=== PATIENT | male | born 1945 | race African-American/Black ===

== ENCOUNTER 2016-03-28 09:57 | Inpatient (IN) | payer MEDICARE, MEDICAID ==
[~2016-03-28] VITALS: Ht 200.7 cm; Wt 100.7 kg
--- NOTE | 2016-03-28 10:50 | PHYS DOC ---
Past Medical History Past Medical History: No Pertinent History Past Surgical History: No Surgical History Alcohol Use: Rarely Drug Use: Marijuana Social History Narrative: last use 10 days ago Adult General Chief Complaint Chief Complaint: WEAKNESS/GENERALIZED HPI HPI Patient is a 70 year old male who presents with right-sided weakness per the patient states his symptoms started 5 days ago. Patient stated that he had gotten into an argument with his landlord prior to symptom onset. Patient states that over the past 5 days he has had difficulty lifting up his right arm and has had mild weakness in his right lower extremity. Patient denies any history of known health problems. Patient states that he does smoke cigarettes. Patient was also noted he has been short of breath. Patient denies any chest pain or abdominal pain. Patient denies any difficulty with speech or swallowing. Review of Systems Review of Systems Constitutional: Denies fever or chills [] Eyes: Denies change in visual acuity, redness, or eye pain [] HENT: Denies nasal congestion or sore throat [] Respiratory: Shortness of breath [] Cardiovascular: Denies chest pain or edema [] GI: Denies abdominal pain, nausea, vomiting, bloody stools or diarrhea [] : Denies dysuria or hematuria [] Musculoskeletal: Denies back pain or joint pain [] Integument: Denies rash or skin lesions [] Neurologic: Right-sided weakness [] Current Medications Current Medications Current Medications Medications (Trade) Dose Ordered Sig/Annalise Start Time Stop Time Status Last Admin Dose Admin Albuterol/ Ipratropium (Duoneb) 3 ml 1X ONCE 03/28/16 11:00 03/28/16 11:01 DC 03/28/16 10:57 3 ML Sodium Chloride (Iv Sodium Chloride 0.9% 1000ml Bag) 1,000 ml @ 100 mls/hr Q10H 03/28/16 11:00 03/28/16 20:59 03/28/16 11:11 100 MLS/HR Allergies Allergies Allergies Coded Allergies Type Severity Reaction Last Updated Verified No Known Drug Allergies 03/28/16 No Physical Exam Physical Exam Constitutional: Alert, afebrile, no acute distress. [] HENT: Normocephalic, atraumatic, bilateral external ears normal, oropharynx moist, no oral exudates, nose normal. [] Eyes: PERRLA, EOMI, conjunctiva normal, no discharge. [] Neck: Normal range of motion, no tenderness, supple, no stridor. [] Cardiovascular:Heart rate regular rhythm, no murmur [] Lungs & Thorax: Mildly restricted air movement bilaterally, no wheezes or rales , chest nontender to palpation [] Abdomen: Bowel sounds normal, soft, no tenderness, no masses, no pulsatile masses. [] Skin: Warm, dry, no erythema, no rash. [] Back: No tenderness, no CVA tenderness. [] Extremities: No tenderness, no cyanosis, no clubbing, ROM intact, no edema. [] Neurologic: Alert and oriented X 3, 4 out of 5 strength in right upper and lower extremity, normal sensory function, no focal deficits noted. [] Current Patient Data Vital Signs Vital Signs Date Time Temp Pulse Resp B/P Pulse Ox O2 Delivery O2 Flow Rate FiO2 03/28/16 11:35 90 16 117/64 97 Nasal Cannula 2 03/28/16 10:07 96.8 96.8 Lab Values Laboratory Tests Test 03/28/16 10:45 03/28/16 10:55 03/28/16 11:05 Urine Collection Type Unknown Urine Color Mary Jo Urine Clarity Clear Urine pH 5.5 Urine Specific [place] >=1.030 Urine Protein Negativemg/dL (NEG-TRACE) Urine Glucose (UA) Negativemg/dL (NEG) Urine Ketones (Stick) Negativemg/dL (NEG) Urine Blood Negative (NEG) Urine Nitrite Negative (NEG) Urine Bilirubin Negative (NEG) Urine Urobilinogen Dipstick 1.0mg/dL (0.2 mg/dL) Urine Leukocyte Esterase Negative (NEG) Urine RBC Occ/HPF (0-2) Urine WBC Occ/HPF (0-4) Urine Squamous Epithelial Cells Few/LPF Urine Bacteria 0/HPF (0-FEW) Urine Hyaline Casts Moderate/HPF Urine Mucus Marked/LPF Influenza Type A Antigen Negative (NEGATIVE) Influenza Type B Antigen Negative (NEGATIVE) White Blood Count 5.3x10^3/uL (4.0-11.0) Red Blood Count 6.02x10^6/uL (4.30-5.70) H Hemoglobin 17.7g/dL (13.0-17.5) H Hematocrit 52.3% (39.0-53.0) Mean Corpuscular Volume 87fL (79-100) Mean Corpuscular Hemoglobin 29pg (25-35) Mean Corpuscular Hemoglobin Concent 34g/dL (31-37) Red Cell Distribution Width 14.0% (11.5-14.5) Platelet Count 167x10^3/uL (140-400) Neutrophils (%) (Auto) 49% (31-73) Lymphocytes (%) (Auto) 31% (24-48) Monocytes (%) (Auto) 20% (0-9) H Eosinophils (%) (Auto) 0% (0-3) Basophils (%) (Auto) 1% (0-3) Neutrophils # (Auto) 2.6x10^3uL (1.8-7.7) Lymphocytes # (Auto) 1.7x10^3/uL (1.0-4.8) Monocytes # (Auto) 1.1x10^3/uL (0.0-1.1) Eosinophils # (Auto) 0.0x10^3/uL (0.0-0.7) Basophils # (Auto) 0.0x10^3/uL (0.0-0.2) Platelet Estimate Pending Sodium Level 140mmol/L (136-145) Potassium Level 3.7mmol/L (3.5-5.1) Chloride Level 102mmol/L (98-107) Carbon Dioxide Level 26mmol/L (21-32) Anion Gap 12 (6-14) Blood Urea Nitrogen 25mg/dL (8-26) Creatinine 1.4mg/dL (0.7-1.3) H Estimated GFR (Cockcroft-Gault) 60.3 BUN/Creatinine Ratio 18 (6-20) Glucose Level 124mg/dL (70-99) H Calcium Level 9.1mg/dL (8.5-10.1) Total Bilirubin 0.3mg/dL (0.2-1.0) Aspartate Amino Transferase (AST) 42U/L (15-37) H Alanine Aminotransferase (ALT) 39U/L (16-63) Alkaline Phosphatase 64U/L (46-116) Creatine Kinase 139U/L (39-308) Creatine Kinase MB (Mass) 0.7ng/mL (0.0-3.6) Creatine Kinase MB Relative Index 0.5% (0-4) Troponin I Quantitative < 0.017ng/mL (0.000-0.055) PN-Bkg-G-Type Natriuretic Peptide 29pg/mL (0-124) Total Protein 7.6g/dL (6.4-8.2) Albumin 3.4g/dL (3.4-5.0) Albumin/Globulin Ratio 0.8 (1.0-1.7) L Laboratory Tests 03/28/16 11:05 Laboratory Tests 03/28/16 11:05 EKG EKG Interpreted by me: Heart rate 88, sinus rhythm, normal intervals, normal axis, no acute ST/T-wave abnormalities present [] Radiology/Procedures Radiology/Procedures [place] [id number] IMAGING REPORT Signed PATIENT: AJIT LYNN ACCOUNT: [id number] : 1945 LOCATION: ER AGE: 70 SEX: M EXAM STATUS: PRE ER ORD. PHYSICIAN: DIANN TAMEZ MD REASON: hypoxia PROCEDURE: PORTABLE CHEST 1V EXAM: Chest, single view. HISTORY: Chest pain. COMPARISON: None. FINDINGS: Frontal views of the chest are obtained. There is no infiltrate, effusion or pneumothorax. The lungs are hyperinflated. The heart is normal in size. IMPRESSION: 1. Hyperinflation due to respiratory effort or emphysema. 2. No acute pulmonary finding. DICTATED and SIGNED BY: ROBLES LEÓN MD DATE: 03/28/16 1103 CC: DIANN TAMEZ MD ~ [address] [address] IMAGING REPORT Signed PATIENT: AIJT LYNN ACCOUNT: [id number] : 1945 LOCATION: ER AGE: 70 SEX: M EXAM STATUS: REG ER ORD. PHYSICIAN: DIANN TAMEZ MD REASON: right-sided weakness for 5 days PROCEDURE: HEAD WO CONTRAST EXAM: Head CT without contrast. HISTORY: Right sided weakness. TECHNIQUE: Computed tomographic images of the head were obtained without contrast. COMPARISON: None. FINDINGS: There is no acute or subacute extra-axial or intraparenchymal hemorrhage. There is no mass effect or midline shift. There is no hydrocephalus. There are areas of decreased attenuation within the cerebral white matter, nonspecific and likely related to chronic small vessel disease. There is also hypodensity within the anterior limb of the left internal capsule likely due to chronic small vessel disease. The visualized portions of the orbits, paranasal sinuses and mastoid air cells are unremarkable. No suspicious calvarial lesion is seen. IMPRESSION: 1. Scattered areas of hypodensity within the cerebral white matter and left internal capsule, a nonspecific finding likely due to chronic small vessel disease. 2. Note is made that MRI is more sensitive for acute infarction. PQRS Compliance Statement: One or more of the following individualized dose reduction techniques were utilized for this examination: 1. Automated exposure control 2. Adjustment of the mA and/or kV according to patient size 3. Use of iterative reconstruction technique DICTATED and SIGNED BY: ROBLES LEÓN MD DATE: 03/28/16 6658 CC: DIANN TAMEZ MD; NO PCP ~ [] Course & Med Decision Making Course & Med Decision Making Pertinent Labs and Imaging studies reviewed. (See chart for details) Patient was given DuoNeb treatment in the emergency department. Patient had to be started on supplemental oxygen due to resting O2 sats of 88%. Patient's chest x-ray does not show obvious pneumonia but does show hyperinflation consistent with likely undiagnosed COPD. This is likely what causing the patient 's acute respiratory distress and hypoxia. The patient will be started on Solu- Medrol in the emergency department. The patient's CT does not show an obvious for evolving stroke. Due to right-sided weakness, I will be consult thing Dr. Lutz of neurology to follow with patient in hospital for further workup. I will also be consulting Dr. Eckert of pulmonology to follow patient in hospital. Patient was admitted to Dr. Gonzales. Dragon Disclaimer Dragon Disclaimer This electronic medical record was generated, in whole or in part, using a voice recognition dictation system. Departure Departure Impression: Primary Impression: Acute respiratory distress Additional Impressions: Hypoxia Right sided weakness Disposition: ADMITTED INPATIENT Admitting Physician: Vitor Gonzales Condition: STABLE Problem Qualifiers DIANN TAMEZ MD Mar 28, 2016 10:50
[2016-03-28] MEDS ORDERED: IPRATRPIUM/ALBUTEROL 0.5/2.5MG 3 ML NEBU. NEB ONE (11:00)
[2016-03-28] MEDS ORDERED: IV NORMAL SALINE 1000ML BAG 1,000 ML IV SCH (11:00)
--- NOTE | 2016-03-28 11:06 | RAD ---
EXAM: Chest, single view. HISTORY: Chest pain. COMPARISON: None. FINDINGS: Frontal views of the chest are obtained. There is no infiltrate, effusion or pneumothorax. The lungs are hyperinflated. The heart is normal in size. IMPRESSION: 1. Hyperinflation due to respiratory effort or emphysema. 2. No acute pulmonary finding.
[2016-03-28 11:22] LABS: BASO % 1 % (0-3); EOS % 0 % (0-3); HEMATOCRIT 52.3 % (39.0-53.0); HEMOGLOBIN 17.7 g/dL (13.0-17.5); LYMPH # 1.7 x10^3/uL (1.0-4.8); LYMPH % 31 % (24-48); MEAN CORPUSCULAR HEMOGLOBIN 29 pg (25-35); MEAN CORPUSCULAR HGB CONC 34 g/dL (31-37); MEAN CORPUSCULAR VOLUME 87 fL (79-100); MONO % 20 % (0-9); NEUT % 49 % (31-73); PLATELET COUNT 167 x10^3/uL (140-400); RED BLOOD COUNT 6.02 x10^6/uL (4.30-5.70); WHITE BLOOD COUNT 5.3 x10^3/uL (4.0-11.0)
[2016-03-28 11:24] LABS: BILIRUBIN,URINE NEGATIVE (NEG); GLUCOSE,URINE NEGATIVE (NEG); NITRITE,URINE NEGATIVE (NEG); PH,URINE 5.5
[2016-03-28 11:45] LABS: OBC FLU VALID
[2016-03-28 11:45] LABS: BACTERIA,URINE 0 /HPF (0-FEW); PROTEIN,URINE NEGATIVE (NEG-TRACE); RBC,URINE OCC /HPF (0-2); SQUAMOUS EPITHELIAL CELL,UR FEW /LPF; WBC,URINE OCC /HPF (0-4)
[2016-03-28 11:46] LABS: CKMB INDEX 0.5 % (0-4); CKMB MASS 0.7 ng/mL (0.0-3.6)
[2016-03-28 11:55] LABS: CALCIUM 9.1 mg/dL (8.5-10.1); CREATININE 1.4 mg/dL (0.7-1.3); GFR 60.3; POTASSIUM 3.7 mmol/L (3.5-5.1)
[2016-03-28 12:01] LABS: ALBUMIN 3.4 g/dL (3.4-5.0); ALBUMIN/GLOBULIN RATIO 0.8 (1.0-1.7); TOTAL BILIRUBIN 0.3 mg/dL (0.2-1.0); TOTAL PROTEIN 7.6 g/dL (6.4-8.2)
--- NOTE | 2016-03-28 12:13 | RAD ---
EXAM: Head CT without contrast. HISTORY: Right sided weakness. TECHNIQUE: Computed tomographic images of the head were obtained without contrast. COMPARISON: None. FINDINGS: There is no acute or subacute extra-axial or intraparenchymal hemorrhage. There is no mass effect or midline shift. There is no hydrocephalus. There are areas of decreased attenuation within the cerebral white matter, nonspecific and likely related to chronic small vessel disease. There is also hypodensity within the anterior limb of the left internal capsule likely due to chronic small vessel disease. The visualized portions of the orbits, paranasal sinuses and mastoid air cells are unremarkable. No suspicious calvarial lesion is seen. IMPRESSION: 1. Scattered areas of hypodensity within the cerebral white matter and left internal capsule, a nonspecific finding likely due to chronic small vessel disease. 2. Note is made that MRI is more sensitive for acute infarction. PQRS Compliance Statement: One or more of the following individualized dose reduction techniques were utilized for this examination: 1. Automated exposure control 2. Adjustment of the mA and/or kV according to patient size 3. Use of iterative reconstruction technique
--- NOTE | 2016-03-28 12:40 | EKG ---
[address] [place] [address] Test Date: 2016-03-28 Test Time: 10:32:50 Pat Name: AJIT LYNN Department: Room: Gender: M Director Of People: : 1945 Requested By: DIANN TAMEZ Order Number: [id number] Reading MD: Kilo Andrea Measurements Intervals [place] Rate: 88 P: 56 CT: 162 QRS: 41 QRSD: 82 T: 63 QT: 362 QTc: 441 Interpretive Statements SINUS RHYTHM QRS(T) CONTOUR ABNORMALITY CONSISTENT WITH ANTEROSEPTAL INFARCT PROBABLY OLD Electronically Signed On 03-30-2016 10:34:30 [employer] by Kilo Andrea
[2016-03-28] MEDS ORDERED: ONDANSETRON PF 4 MG/2 ML VIAL. IV PRN ×2 (12:45→17:15)
[2016-03-28] MEDS ORDERED: ACETAMINOPHEN 325 MG TABLET. PO PRN ×2 (12:45→17:15)
[2016-03-28] MEDS: ASPIRIN 325 MG TABLET PO SCH (13:20)
[2016-03-28] MEDS: methylPREDNISolone SOD SUCC PF 40 MG/ML VIAL. IV SCH ×3 (13:21→22:52)
[2016-03-28 13:47] VITALS: BP 129/79
[2016-03-28 13:49] LABS: % EOS 1 % (0-5); PLT ESTIMATE ADEQUATE (ADEQUATE)
[2016-03-28 14:12] VITALS: BP 117/59
[2016-03-28] MEDS: IPRATRPIUM/ALBUTEROL 0.5/2.5MG 3 ML NEBU. NEB SCH ×2 (15:41→19:18)
[2016-03-28] MEDS ORDERED: ALBUTEROL SULFATE 2.5 MG/3 ML NEBU. NEB PRN (17:15)
[2016-03-28] MEDS ORDERED: HYDROCODONE/APAP 5/325MG TABLET. PO PRN (17:15)
[2016-03-28] MEDS ORDERED: hydrALAZINE 20 MG/ML VIAL. IVP PRN (17:15)
--- NOTE | 2016-03-28 17:46 | PDOC2 ---
CONSULT Date of Consult Date of Consult DATE: 03/28/16 TIME: 17:44 History of Present Illness Reason for Visit: This patient is 70-year-old male who presented with complaints of right-sided weakness. He reports his symptoms started 5 days ago. He was having difficulty with controlling his right arm he felt weak in his right arm and right lower extremity. He reports his symptoms are resolving his strength is getting better. Patient has a history of tobacco abuse. He denied any tingling numbness. He denied any difficulty with speaking. He denies any chest pain, shortness of breath, nausea, vomiting, fever. We will recommend stroke protocol Stroke workup Aspirin daily Statin Cardiac MRI/MRA brain to rule out any acute process 2-D echo K Doppler Continue medical management Continue risk stratification. Tobacco cessation counseling Discussed with the patient in detail Current Problem List Problem List Problems Medical Problems: (1) Acute respiratory distress Status: Acute (2) Hypoxia Status: Acute (3) Right sided weakness Status: Acute Current Medications Current Medications Current Medications Sodium Chloride (Iv Sodium Chloride 0.9% 1000ml Bag) 1,000 ml @ 100 mls/hr Q10H IV Last administered on 03/28/16 11:11; Start 03/28/16 at 11:00; Stop at 20:59 Albuterol/ Ipratropium (Duoneb) 3 ml 1X ONCE NEB Last administered on 10:57; Start 03/28/16 at 11:00; Stop 03/28/16 at 11:01; Status DC Ondansetron HCl (Zofran) 4 mg PRN Q8HRS PRN IV NAUSEA/VOMITING; Start 03/28/16 at 12:45; Stop 03/29/16 at 12:44 Acetaminophen (Tylenol) 650 mg PRN Q4HRS PRN PO FEVER; Start 03/28/16 at 12:45 ; Stop 03/29/16 at 12:44 Methylprednisolone Sodium Succinate (Solu-Medrol 40mg Vial) 60 mg Q6HRS IV Last administered on 03/28/16 13:21; Start 03/28/16 at 13:30 Aspirin (Linsey Aspirin) 325 mg DAILY PO Last administered on 03/28/16 13:20; Start 03/28/16 at 13:30 Albuterol/ Ipratropium (Duoneb) 3 ml RTQID NEB Last administered on 03/28/16t 15:41; Start 03/28/16 at 16:00 Aspirin (Linsey Aspirin) 325 mg DAILYWBKFT PO ; Start 03/29/16 at 08:00; Status UNV Acetaminophen (Tylenol) 325 mg PRN Q6HRS PRN PO MILD PAIN / TEMP; Start at 17:15 Acetaminophen/ Hydrocodone Bitart (Lortab 5/325) 1 tab PRN Q6HRS PRN PO MODERATE TO SEVERE PAIN; Start 03/28/16 at 17:15 Hydralazine HCl (Apresoline) 10 mg PRN Q4HRS PRN IVP ELEVATED BP, SEE COMMENTS ; Start 03/28/16 at 17:15 Ondansetron HCl (Zofran) 4 mg PRN Q8HRS PRN IV NAUSEA/VOMITING; Start 03/28/16 at 17:15 Albuterol Sulfate (Ventolin Neb Soln) 2.5 mg PRN Q4HRS PRN NEB SHORTNESS OF BREATH; Start 03/28/16 at 17:15 Allergies Allergies: Coded Allergies: No Known Drug Allergies (Unverified , 03/28/16) Physical Exam Physical Exam REVIEW OF SYSTEMS: Constitutional: No malnutrition, weight loss, cachexia. Head: No traumatic brain or head injury. Skin: No edema, or rash. Ear: No infection, tinnitus. Eyes: No vision loss or color blindness. Nose: No bleeding or purulent discharges. Hearing: No hearing decrease. Neck: No injury. Cardiac: HTN, HLD. Pulmonary: No COPD. GI: No GI ulcer, GI bleeding. Urinary/genital: No dysuria, hematuria, incontinence, urinary retention Endocrinologic: Diabetes Mellitus Skeletomuscular: No muscular atrophy, deformity Neurological: see HP. Psychiatric: Denies drug use/abuse. Otherwise, not [id number] review of systems. PHYSICAL EXAMINATION: General appearance is in acute distress. HEENT: Normocephalic and nontraumatic. Eyes, nose, ears, and throat are unremarkable. Neck is supple. No lymphadenopathy. No crepitus. Cardiovascular: S1, S2, regular rate and rhythm. Pulmonary: Clear to auscultation bilaterally. Abdomen: Bowel sounds are positive. Abdomen is soft, nontender, and nondistended. Extremities: No rash, lesions, or edema. No restriction of range of motion NEUROLOGICAL EXAMINATION: Alert Oriented to time, place and person. PERRL. EOMI. CN: no focal findings. Muscle tone: within normal. Muscle strength: 5 slight weakness on right side. DTR: 2 Plantar reflex: Flexor response bilaterally Gait: not examined in bed. Sensory exam: no abnormal findings. No obvious cerebellar signs elicited. Vitals VITALS Vital Signs Date Time Temp Pulse Resp B/P Pulse Ox O2 Delivery O2 Flow Rate FiO2 03/28/16 15:43 95 Nasal Cannula 2.0 03/28/16 14:12 96.8 82 117/59 96.8 03/28/16 13:47 18 Labs Labs Laboratory Tests Test 03/28/16 10:45 03/28/16 10:55 03/28/16 11:05 Urine Collection Type Unknown Urine Color Mary Jo Urine Clarity Clear Urine pH 5.5 Urine Specific [place] >=1.030 Urine Protein Negativemg/dL (NEG-TRACE) Urine Glucose (UA) Negativemg/dL (NEG) Urine Ketones (Stick) Negativemg/dL (NEG) Urine Blood Negative (NEG) Urine Nitrite Negative (NEG) Urine Bilirubin Negative (NEG) Urine Urobilinogen Dipstick 1.0mg/dL (0.2 mg/dL) Urine Leukocyte Esterase Negative (NEG) Urine RBC Occ/HPF (0-2) Urine WBC Occ/HPF (0-4) Urine Squamous Epithelial Cells Few/LPF Urine Bacteria 0/HPF (0-FEW) Urine Hyaline Casts Moderate/HPF Urine Mucus Marked/LPF Influenza Type A Antigen Negative (NEGATIVE) Influenza Type B Antigen Negative (NEGATIVE) White Blood Count 5.3x10^3/uL (4.0-11.0) Red Blood Count 6.02x10^6/uL (4.30-5.70) Hemoglobin 17.7g/dL (13.0-17.5) Hematocrit 52.3% (39.0-53.0) Mean Corpuscular Volume 87fL (79-100) Mean Corpuscular Hemoglobin 29pg (25-35) Mean Corpuscular Hemoglobin Concent 34g/dL (31-37) Red Cell Distribution Width 14.0% (11.5-14.5) Platelet Count 167x10^3/uL (140-400) Neutrophils (%) (Auto) 49% (31-73) Lymphocytes (%) (Auto) 31% (24-48) Monocytes (%) (Auto) 20% (0-9) Eosinophils (%) (Auto) 0% (0-3) Basophils (%) (Auto) 1% (0-3) Neutrophils # (Auto) 2.6x10^3uL (1.8-7.7) Lymphocytes # (Auto) 1.7x10^3/uL (1.0-4.8) Monocytes # (Auto) 1.1x10^3/uL (0.0-1.1) Eosinophils # (Auto) 0.0x10^3/uL (0.0-0.7) Basophils # (Auto) 0.0x10^3/uL (0.0-0.2) Segmented Neutrophils % 38% (35-66) Band Neutrophils % 6% (0-9) Lymphocytes % 36% (24-48) Atypical Lymphocytes % (Manual) 1% (0-0) Monocytes % 18% (0-10) Eosinophils % 1% (0-5) Platelet Estimate Adequate (ADEQUATE) Platelet Clumps, EDTA Present Sodium Level 140mmol/L (136-145) Potassium Level 3.7mmol/L (3.5-5.1) Chloride Level 102mmol/L (98-107) Carbon Dioxide Level 26mmol/L (21-32) Anion Gap 12 (6-14) Blood Urea Nitrogen 25mg/dL (8-26) Creatinine 1.4mg/dL (0.7-1.3) Estimated GFR (Cockcroft-Gault) 60.3 BUN/Creatinine Ratio 18 (6-20) Glucose Level 124mg/dL (70-99) Calcium Level 9.1mg/dL (8.5-10.1) Total Bilirubin 0.3mg/dL (0.2-1.0) Aspartate Amino Transf (AST/SGOT) 42U/L (15-37) Alanine Aminotransferase (ALT/SGPT) 39U/L (16-63) Alkaline Phosphatase 64U/L (46-116) Creatine Kinase 139U/L (39-308) Creatine Kinase MB (Mass) 0.7ng/mL (0.0-3.6) Creatine Kinase MB Relative Index 0.5% (0-4) Troponin I Quantitative < 0.017ng/mL (0.000-0.055) WE-Cla-M-Type Natriuretic Peptide 29pg/mL (0-124) Total Protein 7.6g/dL (6.4-8.2) Albumin 3.4g/dL (3.4-5.0) Albumin/Globulin Ratio 0.8 (1.0-1.7) Laboratory Tests Test 03/28/16 10:45 03/28/16 10:55 03/28/16 11:05 Urine Collection Type Unknown Urine Color Mary Jo Urine Clarity Clear Urine pH 5.5 Urine Specific [place] >=1.030 Urine Protein Negativemg/dL (NEG-TRACE) Urine Glucose (UA) Negativemg/dL (NEG) Urine Ketones (Stick) Negativemg/dL (NEG) Urine Blood Negative (NEG) Urine Nitrite Negative (NEG) Urine Bilirubin Negative (NEG) Urine Urobilinogen Dipstick 1.0mg/dL (0.2 mg/dL) Urine Leukocyte Esterase Negative (NEG) Urine RBC Occ/HPF (0-2) Urine WBC Occ/HPF (0-4) Urine Squamous Epithelial Cells Few/LPF Urine Bacteria 0/HPF (0-FEW) Urine Hyaline Casts Moderate/HPF Urine Mucus Marked/LPF Influenza Type A Antigen Negative (NEGATIVE) Influenza Type B Antigen Negative (NEGATIVE) White Blood Count 5.3x10^3/uL (4.0-11.0) Red Blood Count 6.02x10^6/uL (4.30-5.70) Hemoglobin 17.7g/dL (13.0-17.5) Hematocrit 52.3% (39.0-53.0) Mean Corpuscular Volume 87fL (79-100) Mean Corpuscular Hemoglobin 29pg (25-35) Mean Corpuscular Hemoglobin Concent 34g/dL (31-37) Red Cell Distribution Width 14.0% (11.5-14.5) Platelet Count 167x10^3/uL (140-400) Neutrophils (%) (Auto) 49% (31-73) Lymphocytes (%) (Auto) 31% (24-48) Monocytes (%) (Auto) 20% (0-9) Eosinophils (%) (Auto) 0% (0-3) Basophils (%) (Auto) 1% (0-3) Neutrophils # (Auto) 2.6x10^3uL (1.8-7.7) Lymphocytes # (Auto) 1.7x10^3/uL (1.0-4.8) Monocytes # (Auto) 1.1x10^3/uL (0.0-1.1) Eosinophils # (Auto) 0.0x10^3/uL (0.0-0.7) Basophils # (Auto) 0.0x10^3/uL (0.0-0.2) Segmented Neutrophils % 38% (35-66) Band Neutrophils % 6% (0-9) Lymphocytes % 36% (24-48) Atypical Lymphocytes % (Manual) 1% (0-0) Monocytes % 18% (0-10) Eosinophils % 1% (0-5) Platelet Estimate Adequate (ADEQUATE) Platelet Clumps, EDTA Present Sodium Level 140mmol/L (136-145) Potassium Level 3.7mmol/L (3.5-5.1) Chloride Level 102mmol/L (98-107) Carbon Dioxide Level 26mmol/L (21-32) Anion Gap 12 (6-14) Blood Urea Nitrogen 25mg/dL (8-26) Creatinine 1.4mg/dL (0.7-1.3) Estimated GFR (Cockcroft-Gault) 60.3 BUN/Creatinine Ratio 18 (6-20) Glucose Level 124mg/dL (70-99) Calcium Level 9.1mg/dL (8.5-10.1) Total Bilirubin 0.3mg/dL (0.2-1.0) Aspartate Amino Transf (AST/SGOT) 42U/L (15-37) Alanine Aminotransferase (ALT/SGPT) 39U/L (16-63) Alkaline Phosphatase 64U/L (46-116) Creatine Kinase 139U/L (39-308) Creatine Kinase MB (Mass) 0.7ng/mL (0.0-3.6) Creatine Kinase MB Relative Index 0.5% (0-4) Troponin I Quantitative < 0.017ng/mL (0.000-0.055) DI-Nrq-F-Type Natriuretic Peptide 29pg/mL (0-124) Total Protein 7.6g/dL (6.4-8.2) Albumin 3.4g/dL (3.4-5.0) Albumin/Globulin Ratio 0.8 (1.0-1.7) Assessment/Plan Assessment/Plan This patient is 70-year-old male who presented with complaints of right-sided weakness. He reports his symptoms started 5 days ago. He was having difficulty with controlling his right arm he felt weak in his right arm and right lower extremity. He reports his symptoms are resolving his strength is getting better. Patient has a history of tobacco abuse. He denied any tingling numbness. He denied any difficulty with speaking. He denies any chest pain, shortness of breath, nausea, vomiting, fever. We will recommend stroke protocol Stroke workup Aspirin daily Statin Cardiac MRI/MRA brain to rule out any acute process 2-D echo K Doppler Continue medical management Continue risk stratification. Tobacco cessation counseling Discussed with the patient in detail WINSTON ZARCO MD Mar 28, 2016 17:46
--- NOTE | 2016-03-28 18:40 | RAD ---
PROCEDURE Brain MRI without contrast; head MRA without contrast. HISTORY Right arm weakness. TECHNIQUE Multiplanar and multi sequence magnetic resonance imaging of the brain was performed without contrast. Magnetic resonance angiography was performed without contrast. Three-dimensional teol-ve-sapixi and maximum intensity projection images were obtained COMPARISON Head CT obtained on the same date. FINDINGS Brain MRI: There is no restricted diffusion to suggest acute or subacute infarction. There is no susceptibility effect to suggest hemorrhage. There is no mass effect or midline shift. There is no hydrocephalus. There are multiple scattered areas of signal change throughout the cerebral white matter and glenn, a nonspecific finding likely due to chronic small vessel disease. The orbits are unremarkable. There is mild paranasal sinus mucosal thickening. The mastoid air cells are clear. There are normal flow voids within the cerebral vessels. Head MRA: There is no evidence of aneurysm, vascular malformation or hemodynamically significant stenosis. The bilateral posterior communicating arteries and anterior communicating artery are patent. There is slight asymmetry in the caliber of the left greater than right A1 segments and posterior communicating arteries. The left vertebral artery is slightly dominant. IMPRESSION 1. No acute intracranial finding. 2. Extensive areas of signal change within the cerebral white matter and glenn, likely due to chronic small vessel disease. 3. No evidence of aneurysm, vascular malformation or hemodynamically significant stenosis. PQRS Statement: NASCET criteria were utilized for this exam. Electronically signed by: Sada Álvarez (Mar 28, 2016 18:39:40)
[2016-03-28 19:00] VITALS: BP 128/72
--- NOTE | 2016-03-28 19:17 | PDOC1 ---
History and Physical Current Problem List Problem List Problems Medical Problems: (1) Acute respiratory distress Status: Acute (2) Hypoxia Status: Acute (3) Right sided weakness Status: Acute Current Medications Current Medications Current Medications Medications (Trade) Dose Ordered Sig/Annalise Start Time Stop Time Status Last Admin Dose Admin Acetaminophen (Tylenol) 325 mg PRN Q6HRS PRN 03/28/16 17:15 Acetaminophen/ Hydrocodone Bitart (Lortab 5/325) 1 tab PRN Q6HRS PRN 03/28/16 17:15 Albuterol Sulfate (Ventolin Neb Soln) 2.5 mg PRN Q4HRS PRN 03/28/16 17:15 Albuterol/ Ipratropium (Duoneb) 3 ml RTQID 03/28/16 16:00 03/28/16 15:41 3 ML Aspirin (Linsey Aspirin) 325 mg DAILYWBKFT 03/29/16 08:00 UNV Hydralazine HCl (Apresoline) 10 mg PRN Q4HRS PRN 03/28/16 17:15 Methylprednisolone Sodium Succinate (Solu-Medrol 40mg Vial) 60 mg Q6HRS 03/28/16 13:30 03/28/16 18:36 60 MG Ondansetron HCl (Zofran) 4 mg PRN Q8HRS PRN 03/28/16 17:15 Sodium Chloride (Iv Sodium Chloride 0.9% 1000ml Bag) 1,000 ml @ 100 mls/hr Q10H 03/28/16 11:00 03/28/16 20:59 03/28/16 11:11 100 MLS/HR Allergies Allergies Allergies Coded Allergies Type Severity Reaction Last Updated Verified No Known Drug Allergies 03/28/16 No ROS Review of System CONSTITUTIONAL: No fever or chills EYES: No recent changes SKIN: No rash or itching CARDIOVASCULAR: No chest pain, syncope, palpitations, or edema RESPIRATORY: No SOB or cough GASTROINTESTINAL: No nausea, vomiting or abdominal pain NEUROLOGICAL: No headaches or weakness ENDOCRINE: No cold or heat intolerance GENITOURINARY: No urgency or frequency of urination MUSCULOSKELETAL: No back pain or joint pain LYMPHATICS: No enlarged lymph nodes PSYCHIATRIC: No anxiety or depression Physical Exam Physical Exam GEN.: No apparent distress. Alert and oriented. HEENT: Head is normocephalic, atraumatic NECK: Supple. LUNGS: Clear to auscultation. HEART: RRR, S1, S2 present. Peripheral pulses intact ABDOMEN: Soft, nontender. Positive bowel sounds. EXTREMITIES: Without any cyanosis. NEUROLOGIC: Normal speech, normal tone PSYCHIATRIC: Normal affect, normal mood. SKIN: No ulcerations Vitals Vitals Vital Signs Date Time Temp Pulse Resp B/P Pulse Ox O2 Delivery O2 Flow Rate FiO2 03/28/16 15:43 95 Nasal Cannula 2.0 03/28/16 14:12 96.8 82 117/59 96.8 03/28/16 13:47 18 Labs Labs Laboratory Tests Test 03/28/16 10:45 03/28/16 10:55 03/28/16 11:05 Urine Collection Type Unknown Urine Color Mary Jo Urine Clarity Clear Urine pH 5.5 Urine Specific [place] >=1.030 Urine Protein Negativemg/dL (NEG-TRACE) Urine Glucose (UA) Negativemg/dL (NEG) Urine Ketones (Stick) Negativemg/dL (NEG) Urine Blood Negative (NEG) Urine Nitrite Negative (NEG) Urine Bilirubin Negative (NEG) Urine Urobilinogen Dipstick 1.0mg/dL (0.2 mg/dL) Urine Leukocyte Esterase Negative (NEG) Urine RBC Occ/HPF (0-2) Urine WBC Occ/HPF (0-4) Urine Squamous Epithelial Cells Few/LPF Urine Bacteria 0/HPF (0-FEW) Urine Hyaline Casts Moderate/HPF Urine Mucus Marked/LPF Influenza Type A Antigen Negative (NEGATIVE) Influenza Type B Antigen Negative (NEGATIVE) White Blood Count 5.3x10^3/uL (4.0-11.0) Red Blood Count 6.02x10^6/uL (4.30-5.70) Hemoglobin 17.7g/dL (13.0-17.5) Hematocrit 52.3% (39.0-53.0) Mean Corpuscular Volume 87fL (79-100) Mean Corpuscular Hemoglobin 29pg (25-35) Mean Corpuscular Hemoglobin Concent 34g/dL (31-37) Red Cell Distribution Width 14.0% (11.5-14.5) Platelet Count 167x10^3/uL (140-400) Neutrophils (%) (Auto) 49% (31-73) Lymphocytes (%) (Auto) 31% (24-48) Monocytes (%) (Auto) 20% (0-9) Eosinophils (%) (Auto) 0% (0-3) Basophils (%) (Auto) 1% (0-3) Neutrophils # (Auto) 2.6x10^3uL (1.8-7.7) Lymphocytes # (Auto) 1.7x10^3/uL (1.0-4.8) Monocytes # (Auto) 1.1x10^3/uL (0.0-1.1) Eosinophils # (Auto) 0.0x10^3/uL (0.0-0.7) Basophils # (Auto) 0.0x10^3/uL (0.0-0.2) Segmented Neutrophils % 38% (35-66) Band Neutrophils % 6% (0-9) Lymphocytes % 36% (24-48) Atypical Lymphocytes % (Manual) 1% (0-0) Monocytes % 18% (0-10) Eosinophils % 1% (0-5) Platelet Estimate Adequate (ADEQUATE) Platelet Clumps, EDTA Present Sodium Level 140mmol/L (136-145) Potassium Level 3.7mmol/L (3.5-5.1) Chloride Level 102mmol/L (98-107) Carbon Dioxide Level 26mmol/L (21-32) Anion Gap 12 (6-14) Blood Urea Nitrogen 25mg/dL (8-26) Creatinine 1.4mg/dL (0.7-1.3) Estimated GFR (Cockcroft-Gault) 60.3 BUN/Creatinine Ratio 18 (6-20) Glucose Level 124mg/dL (70-99) Calcium Level 9.1mg/dL (8.5-10.1) Total Bilirubin 0.3mg/dL (0.2-1.0) Aspartate Amino Transf (AST/SGOT) 42U/L (15-37) Alanine Aminotransferase (ALT/SGPT) 39U/L (16-63) Alkaline Phosphatase 64U/L (46-116) Creatine Kinase 139U/L (39-308) Creatine Kinase MB (Mass) 0.7ng/mL (0.0-3.6) Creatine Kinase MB Relative Index 0.5% (0-4) Troponin I Quantitative < 0.017ng/mL (0.000-0.055) YP-Vic-F-Type Natriuretic Peptide 29pg/mL (0-124) Total Protein 7.6g/dL (6.4-8.2) Albumin 3.4g/dL (3.4-5.0) Albumin/Globulin Ratio 0.8 (1.0-1.7) Laboratory Tests Test 03/28/16 10:45 03/28/16 10:55 03/28/16 11:05 Urine Collection Type Unknown Urine Color Mary Jo Urine Clarity Clear Urine pH 5.5 Urine Specific [place] >=1.030 Urine Protein Negativemg/dL (NEG-TRACE) Urine Glucose (UA) Negativemg/dL (NEG) Urine Ketones (Stick) Negativemg/dL (NEG) Urine Blood Negative (NEG) Urine Nitrite Negative (NEG) Urine Bilirubin Negative (NEG) Urine Urobilinogen Dipstick 1.0mg/dL (0.2 mg/dL) Urine Leukocyte Esterase Negative (NEG) Urine RBC Occ/HPF (0-2) Urine WBC Occ/HPF (0-4) Urine Squamous Epithelial Cells Few/LPF Urine Bacteria 0/HPF (0-FEW) Urine Hyaline Casts Moderate/HPF Urine Mucus Marked/LPF Influenza Type A Antigen Negative (NEGATIVE) Influenza Type B Antigen Negative (NEGATIVE) White Blood Count 5.3x10^3/uL (4.0-11.0) Red Blood Count 6.02x10^6/uL (4.30-5.70) Hemoglobin 17.7g/dL (13.0-17.5) Hematocrit 52.3% (39.0-53.0) Mean Corpuscular Volume 87fL (79-100) Mean Corpuscular Hemoglobin 29pg (25-35) Mean Corpuscular Hemoglobin Concent 34g/dL (31-37) Red Cell Distribution Width 14.0% (11.5-14.5) Platelet Count 167x10^3/uL (140-400) Neutrophils (%) (Auto) 49% (31-73) Lymphocytes (%) (Auto) 31% (24-48) Monocytes (%) (Auto) 20% (0-9) Eosinophils (%) (Auto) 0% (0-3) Basophils (%) (Auto) 1% (0-3) Neutrophils # (Auto) 2.6x10^3uL (1.8-7.7) Lymphocytes # (Auto) 1.7x10^3/uL (1.0-4.8) Monocytes # (Auto) 1.1x10^3/uL (0.0-1.1) Eosinophils # (Auto) 0.0x10^3/uL (0.0-0.7) Basophils # (Auto) 0.0x10^3/uL (0.0-0.2) Segmented Neutrophils % 38% (35-66) Band Neutrophils % 6% (0-9) Lymphocytes % 36% (24-48) Atypical Lymphocytes % (Manual) 1% (0-0) Monocytes % 18% (0-10) Eosinophils % 1% (0-5) Platelet Estimate Adequate (ADEQUATE) Platelet Clumps, EDTA Present Sodium Level 140mmol/L (136-145) Potassium Level 3.7mmol/L (3.5-5.1) Chloride Level 102mmol/L (98-107) Carbon Dioxide Level 26mmol/L (21-32) Anion Gap 12 (6-14) Blood Urea Nitrogen 25mg/dL (8-26) Creatinine 1.4mg/dL (0.7-1.3) Estimated GFR (Cockcroft-Gault) 60.3 BUN/Creatinine Ratio 18 (6-20) Glucose Level 124mg/dL (70-99) Calcium Level 9.1mg/dL (8.5-10.1) Total Bilirubin 0.3mg/dL (0.2-1.0) Aspartate Amino Transf (AST/SGOT) 42U/L (15-37) Alanine Aminotransferase (ALT/SGPT) 39U/L (16-63) Alkaline Phosphatase 64U/L (46-116) Creatine Kinase 139U/L (39-308) Creatine Kinase MB (Mass) 0.7ng/mL (0.0-3.6) Creatine Kinase MB Relative Index 0.5% (0-4) Troponin I Quantitative < 0.017ng/mL (0.000-0.055) IS-Kaq-C-Type Natriuretic Peptide 29pg/mL (0-124) Total Protein 7.6g/dL (6.4-8.2) Albumin 3.4g/dL (3.4-5.0) Albumin/Globulin Ratio 0.8 (1.0-1.7) VTE Prophylaxis Ordered VTE Prophylaxis Devices: No LALA GALVEZ MD Mar 28, 2016 19:17
[2016-03-28 23:05] VITALS: BP 134/80
--- NOTE | 2016-03-29 03:53 | HP ---
ADMIT DATE: 03/28/2016 CHIEF COMPLAINT: Right upper extremity weakness. HISTORY OF PRESENT ILLNESS: A 70-year-old male patient with the prior history of smoking presented to the ER with complaints of right-sided weakness. Reportedly symptoms started a few days ago. The patient noted to have after 90-degree elevation, his right upper extremity is completely losing strength and hitting his face and also noted the right lower extremity with mildly weakness. The patient initially thought his weakness is due to his right-sided pressure, most of the times he sleeps on his right arm and watches TV. States that the patient's symptoms are getting better after arrival to the ER and at that time of my examination, he did not have any weakness. Denies any loss of strength or sensory changes such as tingling, numbness. PAST MEDICAL HISTORY: No significant history of hypertension or diabetes. SOCIAL HISTORY: Smokes occasionally when available, alcohol occasionally, substance abuse THC. FAMILY HISTORY: Most of the family members , he is the only one alive, possible hypertension, is not clear. REVIEW OF SYSTEMS AND PHYSICAL EXAMINATION: Please see my electronic H and P. LABORATORY FINDINGS: 1. Sodium 140, potassium 3.7, chloride is 102, anion gap 12, BUN is 25, creatinine is 1.4 and GFR is 60. CPK is 139, troponin less than 0.017. 2. Hematology: Hemoglobin is 17.7, hematocrit is 52.3, WBC 5.3. 3. Urine: Color is clear, nitrites negative, leukocyte esterase negative. IMAGING STUDIES: 1. Chest x-ray showed no acute cardiopulmonary process seen, on respiratory effort or emphysema. 2. Head CT showed scattered areas of hyperdensity within the cerebral white matter and left internal capsule. ASSESSMENT: 1. Acute right-sided upper extremity weakness. 2. Acute respiratory distress. 3. Nicotine usage. 4. THC usage. PLAN: 1. Workup for CVA in process such as echocardiogram, carotid Doppler, MR angiogram and MRI of the brain if CT of the head is negative for any acute process. 2. Lipid panel is pending. 3. The patient was kept on telemetry. 4. His EKG did not show any signs of acute ST-T-wave changes. 5. To monitor creatinine. His creatinine is 1.4. Repeat creatinine in a.m. 6. Nicotine patch p.r.n. 7. Aspirin daily. 8. P.r.n. breathing treatments. 9. Six-minute walk test in a.m. 10. Physical therapy and occupational therapy. The patient did not have any speech and swallow difficulties. LALA GALVEZ MD DR: JERMAIN/shar JOB#: [id number] / [id number] HUYEN
[2016-03-29] MEDS: methylPREDNISolone SOD SUCC PF 40 MG/ML VIAL. IV SCH ×4 (05:40→23:08)
[2016-03-29 07:00] VITALS: BP 141/82
[2016-03-29] MEDS: IPRATRPIUM/ALBUTEROL 0.5/2.5MG 3 ML NEBU. NEB SCH ×4 (07:18→19:13)
[2016-03-29] MEDS ORDERED: ASPIRIN 325 MG TABLET PO SCH (08:00)
--- NOTE | 2016-03-29 08:48 | RAD ---
EXAM: Carotid Doppler sonogram. HISTORY: Stroke. TECHNIQUE: Doppler sonographic evaluation of the neck was performed and static images are submitted for review. FINDINGS: There is mild intimal thickening involving the common carotid arteries and mild to moderate atherosclerotic plaque within the right carotid bifurcation and mild atherosclerotic plaque within the left carotid bifurcation. The proximal common carotid arteries are tortuous. The peak systolic velocity within the right common carotid artery is 1 head and 16 cm/sec. The peak systolic velocities within the right proximal, mid and distal internal carotid artery are 63 cm/sec, 59 cm/sec, and 79 cm/sec, respectively. There is a tardus parvus waveform within the proximal and mid right internal carotid artery. The peak systolic velocity within the left common carotid artery is 148 cm/sec. The peak systolic velocities within the left proximal, mid and distal internal carotid artery are 37 cm/sec, 9 cm/sec, and 99 cm/sec, respectively. There is questionable flow reversal within the proximal left internal carotid artery, possibly due to technical artifact. There is normal antegrade flow within both vertebral arteries. IMPRESSION: 1. Mild to moderate atherosclerotic plaque within the right carotid bifurcation and mild atherosclerotic plaque within the left carotid bifurcation and bilateral common carotid artery intimal thickening. 2. Note is made that there is no Doppler evidence of elevated peak systolic velocities within the internal carotid arteries to suggest hemodynamically significant stenosis. However, there are abnormal waveforms within the proximal and mid right ICA and proximal left ICA, a component of which may be due to technique. CT angiography or MR angiography may be useful for characterization if clinically feasible. PQRS Statement: NASCET criteria were utilized for this exam.
[2016-03-29] MEDS: ASPIRIN 325 MG TABLET PO SCH (10:11)
--- NOTE | 2016-03-29 10:22 | PDOC ---
Provider Note Provider Note dictated WINSTON DACOSTA MD Mar 29, 2016 10:22
[2016-03-29 11:00] VITALS: BP 114/75
--- NOTE | 2016-03-29 11:37 | PDOC ---
PROGRESS NOTES Chief Complaint Chief Complaint 1. Acute right-sided upper extremity weakness.? TIA, resolved. 2. Acute respiratory distress. 3. Nicotine usage. 4. THC usage. plan Aspirin Stroke work up pending, Echo pending follow neurology recommendation s PRN nebulizations prn nicotine patch PT/OT Supportive care. declined to have blood draw, no lipid profile. Vitals Vitals Vital Signs Date Time Temp Pulse Resp B/P Pulse Ox O2 Delivery O2 Flow Rate FiO2 03/29/16 11:19 Room Air 03/29/16 11:00 97.2 78 16 114/75 93 97.2 03/29/16 07:33 2.0 Physical Exam General: Alert, Oriented X3, Cooperative Heart: Normal S1, Normal S2 Lungs: Clear Abdomen: Normal bowel sounds, Soft Extremities: No clubbing Assessment and Plan Assessmemt and Plan Problems Medical Problems: (1) Acute respiratory distress Status: Acute (2) Hypoxia Status: Acute (3) Right sided weakness Status: Acute Problems: Comment Review of Relevant I have reviewed the following items cele (where applicable) has been applied. Labs Laboratory Tests Test 03/28/16 10:45 03/28/16 10:55 03/28/16 11:05 Urine Collection Type Unknown Urine Color Mary Jo Urine Clarity Clear Urine pH 5.5 Urine Specific [place] >=1.030 Urine Protein Negativemg/dL (NEG-TRACE) Urine Glucose (UA) Negativemg/dL (NEG) Urine Ketones (Stick) Negativemg/dL (NEG) Urine Blood Negative (NEG) Urine Nitrite Negative (NEG) Urine Bilirubin Negative (NEG) Urine Urobilinogen Dipstick 1.0mg/dL (0.2 mg/dL) Urine Leukocyte Esterase Negative (NEG) Urine RBC Occ/HPF (0-2) Urine WBC Occ/HPF (0-4) Urine Squamous Epithelial Cells Few/LPF Urine Bacteria 0/HPF (0-FEW) Urine Hyaline Casts Moderate/HPF Urine Mucus Marked/LPF Influenza Type A Antigen Negative (NEGATIVE) Influenza Type B Antigen Negative (NEGATIVE) White Blood Count 5.3x10^3/uL (4.0-11.0) Red Blood Count 6.02x10^6/uL (4.30-5.70) Hemoglobin 17.7g/dL (13.0-17.5) Hematocrit 52.3% (39.0-53.0) Mean Corpuscular Volume 87fL (79-100) Mean Corpuscular Hemoglobin 29pg (25-35) Mean Corpuscular Hemoglobin Concent 34g/dL (31-37) Red Cell Distribution Width 14.0% (11.5-14.5) Platelet Count 167x10^3/uL (140-400) Neutrophils (%) (Auto) 49% (31-73) Lymphocytes (%) (Auto) 31% (24-48) Monocytes (%) (Auto) 20% (0-9) Eosinophils (%) (Auto) 0% (0-3) Basophils (%) (Auto) 1% (0-3) Neutrophils # (Auto) 2.6x10^3uL (1.8-7.7) Lymphocytes # (Auto) 1.7x10^3/uL (1.0-4.8) Monocytes # (Auto) 1.1x10^3/uL (0.0-1.1) Eosinophils # (Auto) 0.0x10^3/uL (0.0-0.7) Basophils # (Auto) 0.0x10^3/uL (0.0-0.2) Segmented Neutrophils % 38% (35-66) Band Neutrophils % 6% (0-9) Lymphocytes % 36% (24-48) Atypical Lymphocytes % (Manual) 1% (0-0) Monocytes % 18% (0-10) Eosinophils % 1% (0-5) Platelet Estimate Adequate (ADEQUATE) Platelet Clumps, EDTA Present Sodium Level 140mmol/L (136-145) Potassium Level 3.7mmol/L (3.5-5.1) Chloride Level 102mmol/L (98-107) Carbon Dioxide Level 26mmol/L (21-32) Anion Gap 12 (6-14) Blood Urea Nitrogen 25mg/dL (8-26) Creatinine 1.4mg/dL (0.7-1.3) Estimated GFR (Cockcroft-Gault) 60.3 BUN/Creatinine Ratio 18 (6-20) Glucose Level 124mg/dL (70-99) Calcium Level 9.1mg/dL (8.5-10.1) Total Bilirubin 0.3mg/dL (0.2-1.0) Aspartate Amino Transf (AST/SGOT) 42U/L (15-37) Alanine Aminotransferase (ALT/SGPT) 39U/L (16-63) Alkaline Phosphatase 64U/L (46-116) Creatine Kinase 139U/L (39-308) Creatine Kinase MB (Mass) 0.7ng/mL (0.0-3.6) Creatine Kinase MB Relative Index 0.5% (0-4) Troponin I Quantitative < 0.017ng/mL (0.000-0.055) AH-Dqj-V-Type Natriuretic Peptide 29pg/mL (0-124) Total Protein 7.6g/dL (6.4-8.2) Albumin 3.4g/dL (3.4-5.0) Albumin/Globulin Ratio 0.8 (1.0-1.7) Medications Current Medications Sodium Chloride (Iv Sodium Chloride 0.9% 1000ml Bag) 1,000 ml @ 100 mls/hr Q10H IV Last administered on 03/28/16 11:11; Start 03/28/16 at 11:00; Stop at 20:59; Status DC Albuterol/ Ipratropium (Duoneb) 3 ml 1X ONCE NEB Last administered on 10:57; Start 03/28/16 at 11:00; Stop 03/28/16 at 11:01; Status DC Ondansetron HCl (Zofran) 4 mg PRN Q8HRS PRN IV NAUSEA/VOMITING; Start 03/28/16 at 12:45; Stop 03/29/16 at 12:44 Acetaminophen (Tylenol) 650 mg PRN Q4HRS PRN PO FEVER; Start 03/28/16 at 12:45 ; Stop 03/29/16 at 12:44 Methylprednisolone Sodium Succinate (Solu-Medrol 40mg Vial) 60 mg Q6HRS IV Last administered on 03/28/16 18:36; Start 03/28/16 at 13:30 Aspirin (Linsey Aspirin) 325 mg DAILY PO Last administered on 03/29/16 10:11; Start 03/28/16 at 13:30 Albuterol/ Ipratropium (Duoneb) 3 ml RTQID NEB Last administered on 03/29/16 11:17; Start 03/28/16 at 16:00 Aspirin (Linsey Aspirin) 325 mg DAILYWBKFT PO ; Start 03/29/16 at 08:00; Status UNV Acetaminophen (Tylenol) 325 mg PRN Q6HRS PRN PO MILD PAIN / TEMP; Start at 17:15 Acetaminophen/ Hydrocodone Bitart (Lortab 5/325) 1 tab PRN Q6HRS PRN PO MODERATE TO SEVERE PAIN; Start 03/28/16 at 17:15 Hydralazine HCl (Apresoline) 10 mg PRN Q4HRS PRN IVP ELEVATED BP, SEE COMMENTS ; Start 03/28/16 at 17:15 Ondansetron HCl (Zofran) 4 mg PRN Q8HRS PRN IV NAUSEA/VOMITING; Start 03/28/16 at 17:15 Albuterol Sulfate (Ventolin Neb Soln) 2.5 mg PRN Q4HRS PRN NEB SHORTNESS OF BREATH; Start 03/28/16 at 17:15 Vitals/I & O Vital Sign - Last 24 Hours 03/28/16 03/28/16 03/28/16 03/28/16 11:59 12:29 12:59 13:47 Temp 98.4 98.4 Pulse 90 90 82 75 Resp 16 18 18 18 B/P 125/75 120/69 117/59 129/79 Pulse Ox 94 94 95 97 O2 Delivery Nasal Cannula Nasal Cannula O2 Flow Rate 2 2.0 03/28/16 03/28/16 03/28/16 03/28/16 14:12 14:17 15:43 19:00 Temp 96.8 98.0 96.8 98.0 Pulse 82 76 Resp 20 B/P 117/59 128/72 Pulse Ox 95 95 98 O2 Delivery Nasal Cannula Nasal Cannula Nasal Cannula Nasal Cannula O2 Flow Rate 2.0 2.0 2.0 2.0 03/28/16 03/28/16 03/28/16 03/29/16 19:18 20:00 23:05 07:00 Temp 98.1 98.5 98.1 98.5 Pulse 73 65 Resp 20 16 B/P 134/80 141/82 Pulse Ox 98 94 94 O2 Delivery Nasal Cannula Nasal Cannula Nasal Cannula Nasal Cannula O2 Flow Rate 2.0 2.0 2.0 2.0 03/29/16 03/29/16 03/29/16 07:33 11:00 11:19 Temp 97.2 97.2 Pulse 78 Resp 16 B/P 114/75 Pulse Ox 93 O2 Delivery Nasal Cannula Room Air Room Air O2 Flow Rate 2.0 Intake and Output 03/28/16 03/28/16 03/29/16 15:00 23:00 07:00 Intake Total 500 ml Output Total 250 ml Balance 250 ml LALA GALVEZ MD Mar 29, 2016 11:37
--- NOTE | 2016-03-29 11:38 | CONS ---
DATE OF CONSULTATION: PULMONARY CONSULTATION ATTENDING PHYSICIAN: Vitor Gonzales M.D. REASON FOR CONSULTATION: COPD. HISTORY OF PRESENT ILLNESS: The patient is a 70-year-old male who came in with right-sided weakness and it thought to be a TIA. His symptoms have improved. I have been asked to see him for possibility of COPD. The patient has been a smoker since his teenage years; however, he smokes about 5-6 cigarettes a day. He states he has otherwise been very athletic, just last December he ran a 10 K marathon. He denies any chronic shortness of breath. Denies any cough, no fever, no chills, no chest pains. No weight loss. No hemoptysis. He does not believe in taking any inhalers. He states he wants to, heal himself naturally. His chest x-ray revealed hyperinflation consistent with COPD. PAST MEDICAL HISTORY: No chronic medical problems, but suspect underlying COPD. PAST SURGICAL HISTORY: No recent surgery. ALLERGIES: None. CURRENT MEDICATIONS: Reviewed as listed in the MRAD including DuoNebs and IV steroids. REVIEW OF SYSTEMS: Twelve-point systems obtained, pertinent positives discussed in history of present illness, otherwise noncontributory. All systems that were negative were reviewed as well. SOCIAL HISTORY: Smoked 5-6 cigarettes a day since teenage years and still smokes. FAMILY HISTORY: Noncontributory lungs. PHYSICAL EXAMINATION: VITAL SIGNS: Blood pressure 141/82, pulse ox 94% on 2 liters, afebrile. HEENT: Sclerae nonicteric. NECK: Supple. LUNGS: With faint wheezes. CARDIOVASCULAR: Regular rate and rhythm. ABDOMEN: Soft. EXTREMITIES: With no pitting edema. LABORATORY DATA: Reviewed. White cell count 5.0, hemoglobin 17.7, platelets are 167. IMPRESSION: 1. Suspected underlying chronic obstructive pulmonary disease with mild exacerbation/bronchospasm. This is a patient who smoked 5-6 cigarettes a day since teenage years and still smokes cigarettes, but he prefers to heal himself naturally without any inhalers. 2. Transient ischemic attack with right-sided weakness, now improved. 3. No mass seen on the chest x-ray. RECOMMENDATIONS: 1. Would continue with present DuoNebs and taper Solu-Medrol. 2. I did offer PFTs as an outpatient, but he seems not to be interested. 3. He can use albuterol inhaler on p.r.n. basis at discharge. 4. Hopefully anticipate discharge pulmonary olmos in next 24 hours. WINSTON DACOSTA MD DR: SOCORRO/shar JOB#: [id number] / [id number] HUYEN
[2016-03-29 15:00] VITALS: BP 120/66
--- NOTE | 2016-03-29 18:24 | PDOC ---
PROGRESS NOTES Assessment Problems Medical Problems: (1) Acute respiratory distress Status: Acute (2) Hypoxia Status: Acute (3) Right sided weakness Status: Acute Problems: Plan This patient is 70-year-old male who presented with complaints of right-sided weakness. He reports his symptoms started 5 days ago. He was having difficulty with controlling his right arm he felt weak in his right arm and right lower extremity. He reports his symptoms are resolving his strength is getting better. Patient has a history of tobacco abuse. He denied any tingling numbness. He denied any difficulty with speaking. He denies any chest pain, shortness of breath, nausea, vomiting, fever. We will recommend stroke protocol Stroke workup pending Aspirin daily Statin Cardiac MRI/MRA brain to rule out any acute process 2-D echo Carotid Doppler Continue medical management Continue risk stratification. Subjective no acute events Objective Vital Signs Date Time Temp Pulse Resp B/P Pulse Ox O2 Delivery O2 Flow Rate FiO2 03/29/16 15:27 Room Air 03/29/16 15:00 97.8 79 16 120/66 93 2.0 97.8 Intake and Output 03/29/16 07:00 Intake Total 500 ml Output Total 250 ml Balance 250 ml Intake Oral 500 ml Output Urine Total 250 ml # Bowel Movements 1 PHYSICAL EXAM PHYSICAL EXAMINATION: General appearance is in acute distress. HEENT: Normocephalic and nontraumatic. Eyes, nose, ears, and throat are unremarkable. Neck is supple. No lymphadenopathy. No crepitus. Cardiovascular: S1, S2, regular rate and rhythm. Pulmonary: Clear to auscultation bilaterally. Abdomen: Bowel sounds are positive. Abdomen is soft, nontender, and nondistended. Extremities: No rash, lesions, or edema. No restriction of range of motion NEUROLOGICAL EXAMINATION: Alert Oriented to time, place and person. PERRL. EOMI. CN: no focal findings. Muscle tone: within normal. Muscle strength: 5 slight weakness on right side. DTR: 2 Plantar reflex: Flexor response bilaterally Gait: not examined in bed. Sensory exam: no abnormal findings. No obvious cerebellar signs elicited. Review of Relevant I have reviewed the following items cele (where applicable) has been applied. Labs Laboratory Tests Test 03/28/16 10:45 03/28/16 10:55 03/28/16 11:05 Urine Collection Type Unknown Urine Color Mary Jo Urine Clarity Clear Urine pH 5.5 Urine Specific [place] >=1.030 Urine Protein Negativemg/dL (NEG-TRACE) Urine Glucose (UA) Negativemg/dL (NEG) Urine Ketones (Stick) Negativemg/dL (NEG) Urine Blood Negative (NEG) Urine Nitrite Negative (NEG) Urine Bilirubin Negative (NEG) Urine Urobilinogen Dipstick 1.0mg/dL (0.2 mg/dL) Urine Leukocyte Esterase Negative (NEG) Urine RBC Occ/HPF (0-2) Urine WBC Occ/HPF (0-4) Urine Squamous Epithelial Cells Few/LPF Urine Bacteria 0/HPF (0-FEW) Urine Hyaline Casts Moderate/HPF Urine Mucus Marked/LPF Influenza Type A Antigen Negative (NEGATIVE) Influenza Type B Antigen Negative (NEGATIVE) White Blood Count 5.3x10^3/uL (4.0-11.0) Red Blood Count 6.02x10^6/uL (4.30-5.70) Hemoglobin 17.7g/dL (13.0-17.5) Hematocrit 52.3% (39.0-53.0) Mean Corpuscular Volume 87fL (79-100) Mean Corpuscular Hemoglobin 29pg (25-35) Mean Corpuscular Hemoglobin Concent 34g/dL (31-37) Red Cell Distribution Width 14.0% (11.5-14.5) Platelet Count 167x10^3/uL (140-400) Neutrophils (%) (Auto) 49% (31-73) Lymphocytes (%) (Auto) 31% (24-48) Monocytes (%) (Auto) 20% (0-9) Eosinophils (%) (Auto) 0% (0-3) Basophils (%) (Auto) 1% (0-3) Neutrophils # (Auto) 2.6x10^3uL (1.8-7.7) Lymphocytes # (Auto) 1.7x10^3/uL (1.0-4.8) Monocytes # (Auto) 1.1x10^3/uL (0.0-1.1) Eosinophils # (Auto) 0.0x10^3/uL (0.0-0.7) Basophils # (Auto) 0.0x10^3/uL (0.0-0.2) Segmented Neutrophils % 38% (35-66) Band Neutrophils % 6% (0-9) Lymphocytes % 36% (24-48) Atypical Lymphocytes % (Manual) 1% (0-0) Monocytes % 18% (0-10) Eosinophils % 1% (0-5) Platelet Estimate Adequate (ADEQUATE) Platelet Clumps, EDTA Present Sodium Level 140mmol/L (136-145) Potassium Level 3.7mmol/L (3.5-5.1) Chloride Level 102mmol/L (98-107) Carbon Dioxide Level 26mmol/L (21-32) Anion Gap 12 (6-14) Blood Urea Nitrogen 25mg/dL (8-26) Creatinine 1.4mg/dL (0.7-1.3) Estimated GFR (Cockcroft-Gault) 60.3 BUN/Creatinine Ratio 18 (6-20) Glucose Level 124mg/dL (70-99) Calcium Level 9.1mg/dL (8.5-10.1) Total Bilirubin 0.3mg/dL (0.2-1.0) Aspartate Amino Transf (AST/SGOT) 42U/L (15-37) Alanine Aminotransferase (ALT/SGPT) 39U/L (16-63) Alkaline Phosphatase 64U/L (46-116) Creatine Kinase 139U/L (39-308) Creatine Kinase MB (Mass) 0.7ng/mL (0.0-3.6) Creatine Kinase MB Relative Index 0.5% (0-4) Troponin I Quantitative < 0.017ng/mL (0.000-0.055) MQ-Wiq-P-Type Natriuretic Peptide 29pg/mL (0-124) Total Protein 7.6g/dL (6.4-8.2) Albumin 3.4g/dL (3.4-5.0) Albumin/Globulin Ratio 0.8 (1.0-1.7) Medications Current Medications Sodium Chloride (Iv Sodium Chloride 0.9% 1000ml Bag) 1,000 ml @ 100 mls/hr Q10H IV Last administered on 03/28/16 11:11; Start 03/28/16 at 11:00; Stop at 20:59; Status DC Albuterol/ Ipratropium (Duoneb) 3 ml 1X ONCE NEB Last administered on 10:57; Start 03/28/16 at 11:00; Stop 03/28/16 at 11:01; Status DC Ondansetron HCl (Zofran) 4 mg PRN Q8HRS PRN IV NAUSEA/VOMITING; Start 03/28/16 at 12:45; Stop 03/29/16 at 12:44; Status DC Acetaminophen (Tylenol) 650 mg PRN Q4HRS PRN PO FEVER; Start 03/28/16 at 12:45 ; Stop 03/29/16 at 12:44; Status DC Methylprednisolone Sodium Succinate (Solu-Medrol 40mg Vial) 60 mg Q6HRS IV Last administered on 03/28/16 18:36; Start 03/28/16 at 13:30 Aspirin (Creativity Software Aspirin) 325 mg DAILY PO Last administered on 03/29/16 10:11; Start 03/28/16 at 13:30 Albuterol/ Ipratropium (Duoneb) 3 ml RTQID NEB Last administered on 03/29/16 15:25; Start 03/28/16 at 16:00 Aspirin ([employer] Aspirin) 325 mg DAILYWBKFT PO ; Start 03/29/16 at 08:00; Status UNV Acetaminophen (Tylenol) 325 mg PRN Q6HRS PRN PO MILD PAIN / TEMP; Start at 17:15 Acetaminophen/ Hydrocodone Bitart (Lortab 5/325) 1 tab PRN Q6HRS PRN PO MODERATE TO SEVERE PAIN; Start 03/28/16 at 17:15 Hydralazine HCl (Apresoline) 10 mg PRN Q4HRS PRN IVP ELEVATED BP, SEE COMMENTS ; Start 03/28/16 at 17:15 Ondansetron HCl (Zofran) 4 mg PRN Q8HRS PRN IV NAUSEA/VOMITING; Start 03/28/16 at 17:15 Albuterol Sulfate (Ventolin Neb Soln) 2.5 mg PRN Q4HRS PRN NEB SHORTNESS OF BREATH; Start 03/28/16 at 17:15 Vitals/I & O Vital Sign - Last 24 Hours 03/28/16 03/28/16 03/28/16 03/28/16 19:00 19:18 20:00 23:05 Temp 98.0 98.1 98.0 98.1 Pulse 76 73 Resp 20 20 B/P 128/72 134/80 Pulse Ox 98 98 94 O2 Delivery Nasal Cannula Nasal Cannula Nasal Cannula Nasal Cannula O2 Flow Rate 2.0 2.0 2.0 2.0 03/29/16 03/29/16 03/29/16 03/29/16 07:00 07:33 11:00 11:19 Temp 98.5 97.2 98.5 97.2 Pulse 65 78 Resp 16 16 B/P 141/82 114/75 Pulse Ox 94 93 O2 Delivery Nasal Cannula Nasal Cannula Nasal Cannula Room Air O2 Flow Rate 2.0 2.0 2.0 03/29/16 03/29/16 15:00 15:27 Temp 97.8 97.8 Pulse 79 Resp 16 B/P 120/66 Pulse Ox 93 O2 Delivery Nasal Cannula Room Air O2 Flow Rate 2.0 Intake and Output 03/28/16 03/28/16 03/29/16 15:00 23:00 07:00 Intake Total 500 ml Output Total 250 ml Balance 250 ml WINSTON ZARCO MD Mar 29, 2016 18:24
[2016-03-29 19:05] VITALS: BP 130/74
[2016-03-29 23:20] VITALS: BP 125/74
[2016-03-30] MEDS: methylPREDNISolone SOD SUCC PF 40 MG/ML VIAL. IV SCH ×2 (05:25→12:00)
[2016-03-30 07:05] VITALS: BP 147/84
[2016-03-30] MEDS: IPRATRPIUM/ALBUTEROL 0.5/2.5MG 3 ML NEBU. NEB SCH ×2 (07:46→11:30)
[2016-03-30] MEDS: ASPIRIN 325 MG TABLET PO SCH (08:39)
[2016-03-30 10:35] VITALS: BP 124/85
--- NOTE | 2016-03-30 11:02 | CARD ---
APPROVED REPORT EXAM: Two-dimensional and M-mode echocardiogram with Doppler and color Doppler. Other Information Quality : FairHR: 75bpm Rhythm : NSR INDICATION Right sided weakness Echo Enhancing Agent Indication: Rule Out Septal Defect Agent/Amount Used: Agitated Saline 8mL 2D DIMENSIONS RVDd2.5 (2.9-3.5cm)Left Atrium(2D)2.9 (1.6-4.0cm) IVSd0.8 (0.7-1.1cm)Aortic Root(2D)2.3 (2.0-3.7cm) LVDd5.6 (3.9-5.9cm)LVOT Diameter2.2 (1.8-2.4cm) PWd0.8 (0.7-1.1cm)LVDs2.9 (2.5-4.0cm) FS (%) 47.7 %SV120.4 ml LVEF(%)78.5 (>50%) Aortic Valve AoV Peak Jasson.127.1cm/sAoV VTI22.1cm AO Peak GR.6.5mmHgLVOT Peak Jasson.79.2cm/s LVOT VTI 18.13cmAO Mean GR.4mmHg NICOLE (VMAX)1.25mm9GXR (VTI)3.06cm2 Mitral Valve MV E Sshqreoc90.5cm/sMV E Peak Gr.2mmHg MV DECEL [id number] A Xmyomupm40.2cm/s MV NGD00yaN/A Ratio1.0 MV A Yxipqyfo08odFVD (PHT)3.04cm2 TDI E/Lateral E'4.3E/Medial E'6.4 Pulmonary Valve PV Peak Iudiwrvc79.1cm/sPV Peak Grad.3mmHg Tricuspid Valve TR P. Nmgwxvpl629nd/sRAP ABUCDEUQ3etKi TR Peak Gr.69swFwGWEC68ukVf LEFT VENTRICLE The left ventricle is normal size. There is normal left ventricular wall thickness. Left ventricle sy stolic function is normal. The Ejection Fraction is >70%. There is normal LV segmental wall motion. T he left ventricular diastolic function and filling is normal for age. RIGHT VENTRICLE The right ventricle is normal size. The right ventricular systolic function is normal. ATRIA The left atrium size is normal. The right atrium size is normal. The interatrial septum is intact wit h no evidence for an atrial septal defect or patent foramen ovale as noted on 2-D or Doppler imaging. Injection of bubbles documented no interatrial shunt. AORTIC VALVE The aortic valve is not well visualized. Doppler and Color Flow revealed no significant aortic regurg itation. There is no significant aortic valvular stenosis. MITRAL VALVE The mitral valve is normal in structure and function. There is no evidence of mitral valve prolapse. There is no mitral valve stenosis. Doppler and Color Flow revealed no mitral valve regurgitation note d. TRICUSPID VALVE The tricuspid valve is normal in structure and function. Doppler and Color Flow revealed trace tricus pid regurgitation. There is no pulmonary hypertension. The PA pressure was estimated at 20 mmHg. Ther e is no tricuspid valve stenosis. PULMONIC VALVE The pulmonic valve is not well visualized. Doppler and Color Flow revealed no pulmonic valvular regur gitation. There is no pulmonic valvular stenosis. GREAT VESSELS The aortic root is normal in size. The ascending aorta is normal in size. The IVC is normal in size a nd collapses >50% with inspiration. PERICARDIAL EFFUSION There is no evidence of significant pericardial effusion. Critical Notification Critical Value: No <Conclusion> Left ventricle systolic function is normal. The Ejection Fraction is >70%. There is normal LV segmental wall motion. The interatrial septum is intact with no evidence for an atrial septal defect or patent foramen ovale as noted on 2-D or Doppler imaging. Injection of bubbles documented no interatrial shunt.
--- NOTE | 2016-03-30 13:39 | DISCH ---
DISCHARGE INSTRUCTIONS Condition on Discharge Condition on Discharge: Stable Activity After Discharge Activity Instructions for Disc: No restrictions Diet after Discharge Diet after Discharge: Regular Contacting the DR. after DC Call your doctor for: If your condition worsens Follow-Up Follow up with: PCP in 2 weeks QUINTEN MANE MD Mar 30, 2016 13:39
[2016-03-30] MEDS ORDERED: ASPI-482 PO (13:43)
[2016-03-30] MEDS ORDERED: PRED-220 PO (13:43)
[2016-03-30 15:00] VITALS: BP 137/85
--- NOTE | 2016-03-30 16:33 | PDOC2 ---
NEUROLOGY CONSULT Date of Admission Date of Admission DATE: 03/30/16 TIME: 16:31 Reason for Consult Reason for Consult: Patient stated he did not have CVA and he refused neurology consult. Current Medications Current Medications Current Medications Sodium Chloride (Iv Sodium Chloride 0.9% 1000ml Bag) 1,000 ml @ 100 mls/hr Q10H IV Last administered on 03/28/16 11:11; Start 03/28/16 at 11:00; Stop at 20:59; Status DC Albuterol/ Ipratropium (Duoneb) 3 ml 1X ONCE NEB Last administered on 10:57; Start 03/28/16 at 11:00; Stop 03/28/16 at 11:01; Status DC Ondansetron HCl (Zofran) 4 mg PRN Q8HRS PRN IV NAUSEA/VOMITING; Start 03/28/16 at 12:45; Stop 03/29/16 at 12:44; Status DC Acetaminophen (Tylenol) 650 mg PRN Q4HRS PRN PO FEVER; Start 03/28/16 at 12:45 ; Stop 03/29/16 at 12:44; Status DC Methylprednisolone Sodium Succinate (Solu-Medrol 40mg Vial) 60 mg Q6HRS IV Last administered on 03/28/16 18:36; Start 03/28/16 at 13:30 Aspirin (Linsey Aspirin) 325 mg DAILY PO Last administered on 03/30/16 08:39; Start 03/28/16 at 13:30 Albuterol/ Ipratropium (Duoneb) 3 ml RTQID NEB Last administered on 03/30/16 11:30; Start 03/28/16 at 16:00 Aspirin (Linsey Aspirin) 325 mg DAILYWBKFT PO ; Start 03/29/16 at 08:00; Status UNV Acetaminophen (Tylenol) 325 mg PRN Q6HRS PRN PO MILD PAIN / TEMP; Start at 17:15 Acetaminophen/ Hydrocodone Bitart (Lortab 5/325) 1 tab PRN Q6HRS PRN PO MODERATE TO SEVERE PAIN; Start 03/28/16 at 17:15 Hydralazine HCl (Apresoline) 10 mg PRN Q4HRS PRN IVP ELEVATED BP, SEE COMMENTS ; Start 03/28/16 at 17:15 Ondansetron HCl (Zofran) 4 mg PRN Q8HRS PRN IV NAUSEA/VOMITING; Start 03/28/16 at 17:15 Albuterol Sulfate (Ventolin Neb Soln) 2.5 mg PRN Q4HRS PRN NEB SHORTNESS OF BREATH; Start 03/28/16 at 17:15 Active Scripts Active Aspir 81 (Aspirin) 81 Mg Tablet.dr 1 Tab PO DAILY Prednisone 10 Mg Tablet 10 Mg PO UD Take 3 tablets by mouth daily for 3 days, then decrease by 1 tab every 3 days until gone Allergies Allergies: Coded Allergies: No Known Drug Allergies (Unverified , 03/28/16) Vitals VITALS Vital Signs Date Time Temp Pulse Resp B/P Pulse Ox O2 Delivery O2 Flow Rate FiO2 03/30/16 15:00 97.9 81 18 137/85 93 Nasal Cannula 2.0 97.9 ABBI GAMEZ MD Mar 30, 2016 16:33
--- NOTE | 2016-03-31 18:12 | DS ---
DATE OF DISCHARGE: 03/30/2016 CHIEF COMPLAINT: Right-sided upper extremity weakness, respiratory distress. HOSPITAL COURSE: The patient is a 70-year-old gentleman without medical followup on a routine basis, who presented to the Emergency Room with right-sided upper extremity weakness for the previous 5 days. This was somewhat unusual as he was able to raise his arm, but not fully without any pain. Question of TIA was raised, although unlikely, symptoms ultimately resolved. He declined a neurological consult. The patient was noted to have some hypoxia in the Emergency Room with some cough. With symptoms consistent with viral syndrome, he was treated with nebulizers for a COPD exacerbation/acute bronchitis. Symptoms improved there as well. PHYSICAL EXAMINATION: VITAL SIGNS: Show a blood pressure of 137/85, heart rate of 81, respiratory rate at 18. He is afebrile. GENERAL: This is a well-nourished, well developed 70-year-old -[place] gentleman, alert and oriented, no acute distress. LUNGS: Clear. HEART: Regular rate and rhythm. ABDOMEN: Has positive bowel sounds, soft, nontender. EXTREMITIES: Show no edema. DATE OF DISCHARGE: 03/30/2016. DISCHARGE DISPOSITION: To home. DISCHARGE CONDITION: Improved. DISCHARGE DIAGNOSES: Left upper arm weakness, question TIA, acute hypoxic respiratory failure. DISCHARGE MEDICATIONS: Please refer to MAR. DISCHARGE INSTRUCTIONS: The patient will follow up with PCP in 1-2 weeks. QUINTEN MANE MD DR: MARISELA/nts JOB#: [id number] / [id number] HUYEN
== END 2016-03-30 17:00 | disposition home or self-care (01) | DRG 69 ==
LOC: ER 09:57 → 6 SOUTH 12:18
PROVIDERS: ADMIT Internal Medicine; ATTEND Internal Medicine
DX: G45.9 Transient cerebral ischemic attack, unspecified (principal); J80 Acute respiratory distress syndrome; J44.1 Chronic obstructive pulmonary disease with (acute) exacerbation; B34.9 Viral infection, unspecified; F12.10 Cannabis abuse, uncomplicated; F17.210 Nicotine dependence, cigarettes, uncomplicated; I73.9 Peripheral vascular disease, unspecified; Z79.899 Other long term (current) drug therapy; Z98.890 Other specified postprocedural states
CPT/HCPCS: 99285; C8929; 36415; 70450; 70544; 70551; 71010; 80053; 81001; 82553; 83880; 84484; 85007; 85027; 87804; 93005; 93880; 94250; 94620; 94640; 96360; 96361; J2920; J7030; J7620

== ENCOUNTER → 2019-01-12 | Outpatient (CLI) | payer MEDICARE ==
[~2019-01-12] MED LIST: ASPI-482 PO; PRED-220 PO
--- NOTE | 2019-01-13 11:07 | KCIC ---
EXTREM NONVASCULAR LTD RIGHT History: Right groin pain, lump Comparison: None. Findings: Multiple sonographic images of the right groin region directed toward the site of palpable concern are submitted. At the site of palpable concern, there is an oblong lymph node about 1.2 x 0.7 x 1.3 cm in size. There is preservation of the central hyperechoic hilum. Impression: 1. There is a nonspecific lymph node at site of concern of the right groin, not considered significantly enlarged in short axis dimension, clinical follow-up advised. Electronically signed by: Domingo Santo MD (01/13/2019 11:04 AM) [id number]
== END | disposition home or self-care (01) ==
LOC: KCIC US 15:07
PROVIDERS: ATTEND Surgery
DX: R10.31 Right lower quadrant pain (principal)
CPT/HCPCS: 76882

== ENCOUNTER → 2019-08-21 | Outpatient (CLI) | payer MEDICARE ==
[~2019-08-21] MED LIST changes: +CONTRAST GIVEN. MC PRN; +IOHEXOL 240 MG/ML 50ML VIAL. PO ONE; +IOHEXOL 300 MG/ML 100ML VIAL. IV ONE
--- NOTE | 2019-08-21 11:45 | KCIC ---
EXAM: Abdomen and pelvis CT with intravenous contrast. HISTORY: Right inguinal mass. TECHNIQUE: Computed tomographic images of the abdomen and pelvis were obtained following the administration of intravenous contrast. Multiplanar reformatting was performed. *One or more of the following individualized dose reduction techniques were utilized for this examination: 1. Automated exposure control. 2. Adjustment of the mA and/or kV according to patient size. 3. Use of iterative reconstruction technique. COMPARISON: None. FINDINGS: Evaluation of the lower thorax demonstrates no infiltrate or pleural effusion. There is mild emphysema. There is a fat-containing posterior right diaphragmatic hernia. The heart is normal in size. There is slight hepatic steatosis. There is a small cyst within the hepatic dome. There is a 4 mm hypodense lesion within the inferior right hepatic lobe which is too small to characterize. The gallbladder is unremarkable. There is a prominent downstream pancreatic duct. There is no convincing mass at the ampulla. The spleen is normal in size. There is a suspected 1.8 cm nodule involving the lateral limb of the left adrenal gland and 1.8 cm nodule involving the lateral limb of the right adrenal gland. There is anterior left renal cortical scarring. There is no hydronephrosis. There is no appendicitis. There is distal colonic diverticulosis. There is nodular enlargement of the prostate resulting in deformation of the bladder base. There is a moderate right inguinal hernia containing fat and a loop of distal small bowel. There is no evidence of bowel incarceration or mechanical obstruction. There is aortic and aortic branch vessel atherosclerosis. 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 There is no suspicious osseous lesion. There are degenerative changes throughout the lumbar spine. IMPRESSION: 1. Moderate right inguinal hernia containing fat and a segment of distal small bowel. There is no evidence of incarceration or mechanical obstruction. The hernia sac measures approximately 16 cm in maximum dimension. 2. Colonic diverticulosis. 3. Hepatic steatosis. 4. Tiny cyst within the hepatic dome and indeterminant 4 mm hypodense lesion within the inferior right hepatic lobe. In the absence of known malignancy, this also likely a cyst or hemangioma. 5. 1.8 cm bilateral adrenal gland nodules or nodular thickening of the adrenal glands. Adrenal protocol CT or MRI can be performed to confirm benignity if there are no prior studies to confirm stability. 6. Nodular enlargement of the prostate resulting in deformation of the bladder base. 7. Left renal cortical scarring. 8. Prominent downstream pancreatic duct. No convincing obstructing lesion is seen. Electronically signed by: Sada Álvarez MD (08/21/2019 11:42 AM) [id number]
== END | disposition home or self-care (01) ==
LOC: KCIC CT 09:15
PROVIDERS: ATTEND Family Medicine
DX: K40.90 Unilateral inguinal hernia, without obstruction or gangrene, not specified as recurrent (principal); K57.30 Diverticulosis of large intestine without perforation or abscess without bleeding; K76.0 Fatty (change of) liver, not elsewhere classified; N40.0 Benign prostatic hyperplasia without lower urinary tract symptoms; I70.0 Atherosclerosis of aorta
CPT/HCPCS: 74177; Q9966; Q9967

== ENCOUNTER → 2019-09-08 | Outpatient (CLI) | payer MEDICARE ==
[~2019-09-08] MED LIST changes: -CONTRAST GIVEN. MC PRN; -IOHEXOL 240 MG/ML 50ML VIAL. PO ONE; -IOHEXOL 300 MG/ML 100ML VIAL. IV ONE; +LISI10TA2 PO; +NAPR220T70 PO; +OXYC1TAB15 PO; +PROVENTIL HFA6.7 G2 INH; +TRIA1CAP PO
== END | disposition home or self-care (01) ==
LOC: LAB 14:27
PROVIDERS: ATTEND Surgery
DX: Z11.59 Encounter for screening for other viral diseases (principal)
CPT/HCPCS: U0003-CS

== ENCOUNTER 2019-09-12 10:57 | Day surgery (SDC) | payer MEDICARE ==
[~2019-09-12] VITALS: Ht 200.7 cm; Wt 99.5 kg
[~2019-09-12 10:57] MED LIST changes: +ACETAMINOPHEN 500 MG TABLET PO ONE; +BUPIVACAINE-EPI 0.25%-1:200000 MPF 30 ML VIAL. ONE; +HYDROmorphone 2 MG/ML VIAL IV PRN; +IV RINGERS,LACTATED 1000ML 1,000 ML IV SCH; +LIDOCAINE 1% PF 2 ML VIAL. ID PRN; +MINERAL OIL for SURGERY 10 ML VIAL. MC ONE; +MORPHINE SULFATE 2 MG/ML VIAL. IV PRN; +ONDANSETRON PF 4 MG/2 ML VIAL. IV PRN; -OXYC1TAB15 PO; +PROCHLORPERAZINE 10 MG/2 ML VIAL. IV PRN; +fentaNYL PF VIAL 100 MCG/2 ML VIAL IV PRN
[2019-09-12] MEDS ORDERED: ACETAMINOPHEN 500 MG TABLET PO ONE (11:30)
[2019-09-12] MEDS ORDERED: ONDANSETRON PF 4 MG/2 ML VIAL. ONE (11:46)
[2019-09-12] MEDS ORDERED: LIDOCAINE 2% PF 5 ML VIAL. ONE (11:46)
[2019-09-12] MEDS ORDERED: ROCURONIUM 100 MG/10 ML VIAL. ONE (11:46)
[2019-09-12] MEDS ORDERED: DEXAMETHASONE SOD PHOS 4 MG/ML VIAL ONE (11:46)
[2019-09-12] MEDS ORDERED: PROPOFOL 10 MG/ML (20ML) VIAL. IV ONE (11:46)
[2019-09-12] MEDS ORDERED: fentaNYL PF VIAL 250 MCG/5 ML VIAL ONE (11:46)
[2019-09-12] MEDS ORDERED: SEVOFLURANE 61 TO 120 MINUTES. IH ONE (13:39)
[2019-09-12] MEDS ORDERED: PHENYLEPHRINE in 0.9% NACL PF 1 MG/10 ML SYRINGE. IV ONE (14:09)
[2019-09-12] MEDS ORDERED: NEOSTIGMINE METHYLSULFATE 5 MG/5 ML SYRINGE. ONE (14:10)
[2019-09-12] MEDS ORDERED: GLYCOPYRROLATE 1 MG/5 ML VIAL. ONE (14:10)
--- NOTE | 2019-09-12 14:11 | PDOC4 ---
Operative Note Operative Note Date: September 112019 at 1408 Preoperative diagnosis: Incarcerated right inguinal hernia Postoperative diagnosis: Same Procedure: Robotic assisted laparoscopic right inguinal hernia repair with mesh Surgeon: Subhsah Specimen: None Tatian: Patient is a 73-year-old gentleman is complained of a large bulge in his right groin as well as pain. Procedure of robotic assisted laparoscopic right inguinal hernia repair with mesh was explained to the patient detail was benefits were also discussed including bleeding infection injury to intra- abdominal contents possibly necessitating further or open operations alternatives to this procedure also discussed with the patient who seemed to understand and gave both verbal and written consent to have the procedure performed. Patient was taken to the operating room placed in the supine posi tion general anesthesia was initiated once patient was sleeping intubated is placed in low lithotomy positioning and his abdomen was prepped and draped usual sterile fashion using ChloraPrep. An area just above the umbilicus was injected with quarter percent Marcaine with epinephrine incision was made 11 blade scalpel and a varies needle was placed within the abdomen creating pneu moperitoneum once this was complete a 8 mm da Khoa port was placed in a da Khoa camera was placed within the abdomen who was inspected it was noted there is a large right inguinal hernia with incarcerated small bowel. A 8 mm da Khoa port was placed in the right midabdomen and an 8 mm da Khoa port was placed in the left midabdomen. The da Khoa robot was brought and docked all port sites surgeon went to the robotic console using a grasper and Endo Efrain scissors the hernia contents of the right inguinal hernia were reduced. A window was propagated in the peritoneum with blunt and sharp dissection this was propagated inferiorly reducing the hernia sac and creating a window in the peritoneum. A Bard 3D max mesh for the right inguinal area was placed over the inguinal defect and then the peritoneum was closed over the mesh with a running 2 OV lock absorbable suture. The da Khoa was undocked from all port sites all ports were removed the pneumoperitoneum was reduced and the port sites were all closed with 4-0 subcuticular Monocryl Mastisol Steri-Strips and island dressings were applied. Patient was awakened and extubated in the operating room taken to recovery in stable condition all sponge instrument needle counts listed as correct estimated blood loss 5 mL. LU PATEL MD Sep 12, 2019 14:11
--- NOTE | 2019-09-12 14:13 | DISCH ---
DISCHARGE INSTRUCTIONS Condition on Discharge Condition on Discharge: Stable Activity After Discharge Activity Instructions for Disc: Avoid exertion Other activity instructions: No lifting more than 20 pounds for 2 weeks Diet after Discharge Diet after Discharge: Regular Wound Incision Care Other wound/incision instructi: May shower in 24 hours Contacting the after DC Call your doctor for: If your condition worsens Follow-Up Follow up with: Dr. Patel in 2 weeks LU PATEL MD Sep 12, 2019 14:13
[2019-09-12] MEDS: fentaNYL PF VIAL 100 MCG/2 ML VIAL IV PRN ×4 (14:43→15:10)
[2019-09-12] MEDS ORDERED: OXYC1TAB15 PO (14:45)
[2019-09-12] MEDS ORDERED: oxyCODONE/APAP 5/325 1 TAB TABLET PO ONE (15:00)
[2019-09-12 15:43] VITALS: BP 152/86
[2019-09-13] MEDS ORDERED: BISA-42 PO (10:01)
== END 2019-09-12 16:25 | disposition home or self-care (01) ==
LOC: SURG 10:57
PROVIDERS: ATTEND Surgery
DX: K40.30 Unilateral inguinal hernia, with obstruction, without gangrene, not specified as recurrent (principal)
CPT/HCPCS: 49650; A7015; C1781; J0690; J1100; J2370; J2405; J2704; J2710; J3010; J3490; J7120

== ENCOUNTER 2019-09-13 05:57 | Emergency (ER) | payer MEDICARE ==
[~2019-09-13] VITALS: Ht 200.7 cm; Wt 99.3 kg
[~2019-09-13 05:57] MED LIST changes: -ACETAMINOPHEN 500 MG TABLET PO ONE; -BUPIVACAINE-EPI 0.25%-1:200000 MPF 30 ML VIAL. ONE; -HYDROmorphone 2 MG/ML VIAL IV PRN; -IV RINGERS,LACTATED 1000ML 1,000 ML IV SCH; -LIDOCAINE 1% PF 2 ML VIAL. ID PRN; -MINERAL OIL for SURGERY 10 ML VIAL. MC ONE; -MORPHINE SULFATE 2 MG/ML VIAL. IV PRN; -ONDANSETRON PF 4 MG/2 ML VIAL. IV PRN; +OXYC1TAB15 PO; -PROCHLORPERAZINE 10 MG/2 ML VIAL. IV PRN; -fentaNYL PF VIAL 100 MCG/2 ML VIAL IV PRN
[2019-09-13] MEDS ORDERED: ONDANSETRON ODT 4 MG TAB.RAPDIS. PO ONE (07:00)
[2019-09-13] MEDS: TAMSULOSIN 0.4 MG CAP.ER.24H. PO ONE ×2 (07:00→07:05)
--- NOTE | 2019-09-13 07:11 | PHYS DOC ---
Past Medical History Past Medical History: High Cholesterol, Hypertension Past Surgical History: Other Additional Past Surgical Histo: inguinal hernia repair 09/12/19 Smoking Status: Current Every Day Smoker Alcohol Use: Occasionally Drug Use: Marijuana General Adult EDM: Chief Complaint: POST-OP PROBLEM HPI: HPI: Patient is a 73 year old male who had inguinal hernia repair yesterday at [address] Cullen, came back here today due to not able to urinate, not able to passing gas, having nausea vomiting. Last time he had a bowel movement was 24 hours ago, tried to urinate, not much coming out. Patient denies any cough or fever, no chest pain. Patient denies any trouble breathing. Review of Systems: Review of Systems: Constitutional: Denies fever or chills. [] Eyes: Denies change in visual acuity. [] HENT: Denies nasal congestion or sore throat. [] Respiratory: Denies cough or shortness of breath. [] Cardiovascular: Denies chest pain or edema. [] GI: Positive for nausea and vomiting, : Denies dysuria. Not able to urinate Musculoskeletal: Denies back pain or joint pain. [] Integument: Denies rash. [] Neurologic: Denies headache, focal weakness or sensory changes. [] Endocrine: Denies polyuria or polydipsia. [] Lymphatic: Denies swollen glands. [] Psychiatric: Denies depression or anxiety. [] Heart Score: Risk Factors: Risk Factors: DM, Current or recent (<one month) smoker, HTN, HLP, family history of CAD, obesity. Risk Scores: Score 0 - 3: 2.5% MACE over next 6 weeks - Discharge Home Score 4 - 6: 20.3% MACE over next 6 weeks - Admit for Clinical Observation Score 7 - 10: 72.7% MACE over next 6 weeks - Early Invasive Strategies Current Medications: Current Medications Medications (Trade) Dose Ordered Sig/Annalise Start Time Stop Time Status Last Admin Dose Admin Methylnaltrexone Sherman (Relistor) 12 mg 1X ONCE 09/13/19 07:15 09/13/19 07:16 UNV Ondansetron HCl (Zofran Odt) 4 mg 1X ONCE 09/13/19 07:00 09/13/19 07:01 DC Tamsulosin HCl (Flomax) 0.4 mg 1X ONCE 09/13/19 07:00 09/13/19 07:01 DC Allergies: Allergies: Allergies Coded Allergies Type Severity Reaction Last Updated Verified No Known Drug Allergies 09/12/19 No Physical Exam: PE: Constitutional: Well developed, well nourished, no acute distress, non-toxic appearance. [] HENT: Normocephalic, atraumatic, bilateral external ears normal, oropharynx moist, no oral exudates, nose normal. [] Eyes: PERRLA, EOMI, conjunctiva normal, no discharge. [] Neck: Normal range of motion, no tenderness, supple, no stridor. [] Cardiovascular:Heart rate regular rhythm, no murmur [] Lungs & Thorax: Bilateral breath sounds clear to auscultation [] Abdomen: Hyperactive bowel, soft, no tenderness, no masses, no pulsatile masses. There are three small abdominal wounds from surgery with sterile strips, the one at the periumbilical area with dried blood present Skin: Warm, dry, no erythema, no rash. [] Back: No tenderness, no CVA tenderness. [] Extremities: No tenderness, no cyanosis, no clubbing, ROM intact, no edema. [] Neurologic: Alert and oriented X 3, normal motor function, normal sensory function, no focal deficits noted. [] Psychologic: Affect normal, judgement normal, mood normal. [] Current Patient Data: Vital Signs: Vital Signs Date Time Temp Pulse Resp B/P (MAP) Pulse Ox O2 Delivery O2 Flow Rate FiO2 09/13/19 06:17 87 18 97 09/13/19 06:12 98.7 182/94 (123) Room Air 98.7 EKG: EKG: [] Radiology/Procedures: Radiology/Procedures: [facility] [address] [place] [address] IMAGING REPORT Signed PATIENT: AJIT LYNN ACCOUNT: [id number] : 1945 LOCATION: ER AGE: 73 SEX: M EXAM STATUS: REG ER ORD. PHYSICIAN: REYES MCFARLAND DO REASON: hernia surgery yesterday, nausea, vomiting, not able to pass gas. PROCEDURE: ACUTE ABDOMEN SERIES Examination: Acute abdomen series HISTORY: History of nausea, vomiting COMPARISON: None available FINDINGS: The cardiomediastinal silhouette grossly appears unremarkable. Mild hyperinflated lungs likely changes of COPD. Minimal bibasilar lung atelectasis. Evaluation of the small bowel is limited. Feces and gas noted in the colon. IMPRESSION: 1. Nonspecific bowel gas pattern. 2. Feces and gas noted in the colon likely constipation. 2. Probable mild hyperinflated lungs likely COPD. Electronically signed by: Yousuf Roblero MD (09/13/2019 7:40 AM) [id number] DICTATED and SIGNED BY: YOUSUF ROBLERO MD DATE: 09/13/19739 Course & Med Decision Making: Course & Med Decision Making Pertinent Labs and Imaging studies reviewed. (See chart for details) [] Dragon Disclaimer: Dragon Disclaimer: This electronic medical record was generated, in whole or in part, using a voice recognition dictation system. Departure Departure Impression: Primary Impression: Acute urinary retention Additional Impression: Constipation Disposition: 01 HOME, SELF-CARE Condition: IMPROVED Referrals: AJIT CARTER MD (PCP) LU CULLEN MD follow up with your surgeon within 5 days for montesinos removal Patient Instructions: Constipation, Adult, Montesinos Catheter Care, Adult, Urinary Retention, Acute, Male Additional Instructions: Thank you for visiting our Emergency Department. We appreciate you trusting us with your care. If any additional problems come up don't hesitate to return to visit us. Please follow up with your primary care provider so they can plan additional care if needed and know about the problem that you had. If symptoms worsen come back to the Emergency Department. Any concerning symptoms that start such as chest pain, shortness of air, weakness or numbness on one side of the body, running high fevers or any other concerning symptoms return to the ER. Scripts Bisacodyl (DULCOLAX) 5 Mg Tablet. 5 MG PO PRN DAILY PRN for CONSTIPATION for 10 Days, #20 TAB 0 Refills Prov: REYES MCFARLAND DO 09/13/19 Justicifation of Admission Dx: Justifications for Admission: Justification of Admission Dx: N/A REYES MCFARLAND DO Sep 13, 2019 07:11
[2019-09-13] MEDS ORDERED: METHYLNALTREXONE 12 MG/0.6 ML VIAL. SQ ONE (07:15)
--- NOTE | 2019-09-13 07:43 | RAD ---
Examination: Acute abdomen series HISTORY: History of nausea, vomiting COMPARISON: None available FINDINGS: The cardiomediastinal silhouette grossly appears unremarkable. Mild hyperinflated lungs likely changes of COPD. Minimal bibasilar lung atelectasis. Evaluation of the small bowel is limited. Feces and gas noted in the colon. IMPRESSION: 1. Nonspecific bowel gas pattern. 2. Feces and gas noted in the colon likely constipation. 2. Probable mild hyperinflated lungs likely COPD. Electronically signed by: Yousuf Roblero MD (09/13/2019 7:40 AM) [id number]
[2019-09-13] MEDS ORDERED: MAGNESIUM CITRATE 296 ML SOLUTION. PO ONE (08:15)
[2019-09-13] MEDS ORDERED: BISA-42 PO (10:01)
[2019-09-13 10:08] VITALS: BP 154/83
[2019-09-13] MEDS ORDERED: LIDO:MAALOX 1:1 20 ML SINGLE DOSE. SWSW ONE (10:45)
== END 2019-09-13 11:15 | disposition home or self-care (01) ==
LOC: ER 05:57
DX: R33.9 Retention of urine, unspecified (principal); K59.00 Constipation, unspecified; R11.2 Nausea with vomiting, unspecified; E78.00 Pure hypercholesterolemia, unspecified; I10 Essential (primary) hypertension; F17.200 Nicotine dependence, unspecified, uncomplicated; F12.90 Cannabis use, unspecified, uncomplicated; Z98.890 Other specified postprocedural states; Z79.899 Other long term (current) drug therapy
CPT/HCPCS: 51702; 74022; 99285

== ENCOUNTER 2019-09-19 07:00 | Emergency (ER) | payer MEDICARE ==
[~2019-09-19] VITALS: Ht 200.7 cm; Wt 99.5 kg
[~2019-09-19 07:00] MED LIST changes: +BISA-42 PO
[2019-09-19] MEDS ORDERED: LIDOCAINE 2% JELLY 6ML IN APPLICATOR. ONE (07:54)
[2019-09-19 08:00] VITALS: BP 194/102
[2019-09-19] MEDS ORDERED: TAMSULOSIN 0.4 MG CAP.ER.24H. PO ONE (08:00)
[2019-09-19] MEDS ORDERED: LIDOCAINE 2% JELLY 6ML IN APPLICATOR. MM ONE (08:30)
[2019-09-19 08:44] LABS: BILIRUBIN,URINE NEGATIVE (NEG); CLARITY,URINE TURBID; COLOR,URINE YELLOW; NITRITE,URINE NEGATIVE (NEG); PH,URINE 5.5 (<5.0-8.0); PROTEIN,URINE 30 mg/dL (NEG-TRACE); UROBILINOGEN,URINE 0.2 mg/dL (0.2 mg/dL)
[2019-09-19 09:14] LABS: BACTERIA,URINE MODERATE /HPF (0-FEW); RBC,URINE >40 /HPF (0-2); SQUAMOUS EPITHELIAL CELL,UR FEW /LPF; WBC,URINE TNTC /HPF (0-4)
[2019-09-19] MEDS ORDERED: LEVO500T59 PO (10:48)
--- NOTE | 2019-09-19 10:49 | PHYS DOC ---
Past Medical History Past Medical History: High Cholesterol, Hypertension Past Surgical History: Other Additional Past Surgical Histo: inguinal hernia repair 09/12/19 Smoking Status: Current Every Day Smoker Alcohol Use: Occasionally Drug Use: Marijuana General Adult EDM: Chief Complaint: URINARY RETENTION HPI: HPI: Patient is a 73 year old male who presented to ER today for evaluation of not able to urinate since last night. Patient had his inguinal hernia repaired last week, he was discharged home, he came back the next day because he was not able to urinate. A indwelling Bernabe catheter was placed in the ER, he was discharged home instructed follow-up with his surgeon within 5 days to have a Bernabe catheter removed. Patient was seen by his surgeon yesterday, had a Bernabe catheter removed. Patient went home was able to urinate just very tiny amount of urine. Then all night long, he was not able to urinate, he feels like his bladder is really full. Patient denies any fever, no nausea vomiting. Patient was given a referral to a urologist next week by his doctor. Review of Systems: Review of Systems: Constitutional: Denies fever or chills. [] Eyes: Denies change in visual acuity. [] HENT: Denies nasal congestion or sore throat. [] Respiratory: Denies cough or shortness of breath. [] Cardiovascular: Denies chest pain or edema. [] GI: Denies abdominal pain, nausea, vomiting, bloody stools or diarrhea. [] : Positive for unable to urinate. Musculoskeletal: Denies back pain or joint pain. [] Integument: Denies rash. [] Neurologic: Denies headache, focal weakness or sensory changes. [] Endocrine: Denies polyuria or polydipsia. [] Lymphatic: Denies swollen glands. [] Psychiatric: Denies depression or anxiety. [] Heart Score: Risk Factors: Risk Factors: DM, Current or recent (<one month) smoker, HTN, HLP, family hi story of CAD, obesity. Risk Scores: Score 0 - 3: 2.5% MACE over next 6 weeks - Discharge Home Score 4 - 6: 20.3% MACE over next 6 weeks - Admit for Clinical Observation Score 7 - 10: 72.7% MACE over next 6 weeks - Early Invasive Strategies Current Medications: Current Medications Medications (Trade) Dose Ordered Sig/Annalise Start Time Stop Time Status Last Admin Dose Admin Levofloxacin (Levaquin) 500 mg 1X ONCE 09/19/19 09:30 09/19/19 09:31 DC 09/19/19 10:29 500 MG Lidocaine HCl (Glydo (Lidocaine) Jelly) 1 gilles 1X ONCE 09/19/19 08:30 09/19/19 08:31 DC 09/19/19 08:26 1 GILLES Tamsulosin HCl (Flomax) 0.4 mg 1X ONCE 09/19/19 08:00 09/19/19 08:01 DC 09/19/19 08:23 0.4 MG Allergies: Allergies: Allergies Coded Allergies Type Severity Reaction Last Updated Verified No Known Drug Allergies 09/12/19 No Physical Exam: PE: Constitutional: Well developed, well nourished, no acute distress, non-toxic appearance. [] HENT: Normocephalic, atraumatic, bilateral external ears normal, oropharynx moist, no oral exudates, nose normal. [] Eyes: PERRLA, EOMI, conjunctiva normal, no discharge. [] Neck: Normal range of motion, no tenderness, supple, no stridor. [] Cardiovascular:Heart rate regular rhythm, no murmur [] Lungs & Thorax: Bilateral breath sounds clear to auscultation [] Abdomen: Bowel sounds normal, soft, there is tenderness to palpation at the suprapubic area, no masses, no pulsatile masses. [] Skin: Warm, dry, no erythema, no rash. [] Back: No tenderness, no CVA tenderness. [] Extremities: No tenderness, no cyanosis, no clubbing, ROM intact, no edema. [] Neurologic: Alert and oriented X 3, normal motor function, normal sensory function, no focal deficits noted. [] Psychologic: Affect normal, judgement normal, mood normal. [] Current Patient Data: Labs: Laboratory Tests Test 09/19/19 08:24 Urine Collection Type U cath Urine Color Yellow Urine Clarity Turbid Urine pH 5.5 (<5.0-8.0) Urine Specific Swain 1.010 (1.000-1.030) Urine Protein 30 mg/dL (NEG-TRACE) Urine Glucose (UA) Negative mg/dL (NEG) Urine Ketones (Stick) Negative mg/dL (NEG) Urine Blood Large (NEG) Urine Nitrite Negative (NEG) Urine Bilirubin Negative (NEG) Urine Urobilinogen Dipstick 0.2 mg/dL (0.2 mg/dL) Urine Leukocyte Esterase Large (NEG) Urine RBC >40 /HPF (0-2) Urine WBC Tntc /HPF (0-4) Urine Squamous Epithelial Cells Few /LPF Urine Bacteria Moderate /HPF (0-FEW) Vital Signs: Vital Signs Date Time Temp Pulse Resp B/P (MAP) Pulse Ox O2 Delivery O2 Flow Rate FiO2 09/19/19 08:00 98.3 86 20 194/102 (132) 95 Room Air 98.3 EKG: EKG: [] Radiology/Procedures: Radiology/Procedures: [] Course & Med Decision Making: Course & Med Decision Making Pertinent Labs and Imaging studies reviewed. (See chart for details) A bladder scan showed patient had more than 1000 cc of urine in the bladder, a Bernabe catheter was inserted, large amount of urine collected. Patient felt much better. Urinalysis Showed patient has UTI, patient was given a dose of Levaquin 500 mg p.o. in ER. Patient will be discharged home with prescription for Levaquin 500 mg to be taken as daily for 7-day. Patient will need to follow-up with urologist for evaluation. Dragon Disclaimer: [employer] Disclaimer: This electronic medical record was generated, in whole or in part, using a voice recognition dictation system. Departure Departure Impression: Primary Impression: Urinary retention Additional Impression: UTI (urinary tract infection) Disposition: 01 HOME, SELF-CARE Condition: IMPROVED Referrals: LU PATEL MD PLEASE CALL YOUR SURGEON FOR FOLLOW UP THIS WEEK. YOU WILL NEED A REFERRAL TO A UROLOGIST WELL Patient Instructions: Bernabe Catheter Care, Adult, Urinary Retention, Acute, Male, Urinary Tract Infection Additional Instructions: Thank you for visiting our Emergency Department. We appreciate you trusting us with your care. If any additional problems come up don't hesitate to return to visit us. Please follow up with your primary care provider so they can plan additional care if needed and know about the problem that you had. If symptoms worsen come back to the Emergency Department. Any concerning symptoms that start such as chest pain, shortness of air, weakness or numbness on one side of the body, running high fevers or any other concerning symptoms return to the ER. Scripts Levofloxacin (LEVAQUIN) 500 Mg Tablet 1 TAB PO DAILY for 7 Days, #7 TAB 0 Refills Prov: REYES MCFARLAND DO 09/19/19 Justicifation of Admission Dx: Justifications for Admission: Justification of Admission Dx: N/A REYES MCFARLAND DO Sep 19, 2019 10:49
== END 2019-09-19 11:07 | disposition home or self-care (01) ==
LOC: ER 07:00
DX: N39.0 Urinary tract infection, site not specified (principal); R33.9 Retention of urine, unspecified; E78.00 Pure hypercholesterolemia, unspecified; I10 Essential (primary) hypertension; F17.200 Nicotine dependence, unspecified, uncomplicated; F12.90 Cannabis use, unspecified, uncomplicated; Z98.890 Other specified postprocedural states
CPT/HCPCS: 51702; 81001; 87086; 99284

== ENCOUNTER 2019-09-27 21:31 | Emergency (ER) | payer MEDICARE ==
[~2019-09-27] VITALS: Ht 188 cm; Wt 96.8 kg
[~2019-09-27 21:31] MED LIST changes: +LEVO500T59 PO
[2019-09-27 22:25] VITALS: BP 131/80
--- NOTE | 2019-09-27 22:25 | PHYS DOC ---
Past Medical History Past Medical History: High Cholesterol, Hypertension Past Surgical History: Other Additional Past Surgical Histo: inguinal hernia repair 09/12/19 Smoking Status: Current Every Day Smoker Alcohol Use: Occasionally Drug Use: Marijuana General Adult EDM: Chief Complaint: BLOOD IN URINE HPI: HPI: Patient is a 73-year-old male with a Bernabe catheter in place. He is coming recently completed a course of antibiotics. This was placed by his surgeon. He states he wants the catheter out and his surgeon said that that is not something that he did. Again he is having no pain no fever chills sweats nausea or vomiting. He just wants the catheter out.] Review of Systems: Review of Systems: Constitutional: Denies fever or chills. [] Eyes: Denies change in visual acuity. [] HENT: Denies nasal congestion or sore throat. [] Respiratory: Denies cough or shortness of breath. [] Cardiovascular: Denies chest pain or edema. [] GI: Denies abdominal pain, nausea, vomiting, bloody stools or diarrhea. [] : Per HPI [] Musculoskeletal: Denies back pain or joint pain. [] Integument: Denies rash. [] Neurologic: Denies headache, focal weakness or sensory changes. [] Endocrine: Denies polyuria or polydipsia. [] Lymphatic: Denies swollen glands. [] Psychiatric: Denies depression or anxiety. [] Heart Score: Risk Factors: Risk Factors: DM, Current or recent (<one month) smoker, HTN, HLP, family history of CAD, obesity. Risk Scores: Score 0 - 3: 2.5% MACE over next 6 weeks - Discharge Home Score 4 - 6: 20.3% MACE over next 6 weeks - Admit for Clinical Observation Score 7 - 10: 72.7% MACE over next 6 weeks - Early Invasive Strategies Allergies: Allergies: Allergies Coded Allergies Type Severity Reaction Last Updated Verified No Known Drug Allergies 09/12/19 No Physical Exam: PE: Constitutional: Well developed, well nourished, no acute distress, non-toxic appearance. [] HENT: Normocephalic, atraumatic, bilateral external ears normal, oropharynx moist, no oral exudates, nose normal. [] Eyes: PERRLA, EOMI, conjunctiva normal, no discharge. [] Neck: Normal range of motion, no tenderness, supple, no stridor. [] Cardiovascular:Heart rate regular rhythm, no murmur [] Lungs & Thorax: Bilateral breath sounds clear to auscultation [] Abdomen: Bowel sounds normal, soft, no tenderness, no masses, no pulsatile masses. [] : Bernabe catheter in place with pink-tinged urine Skin: Warm, dry, no erythema, no rash. [] Back: No tenderness, no CVA tenderness. [] Extremities: No tenderness, no cyanosis, no clubbing, ROM intact, no edema. [] Neurologic: Alert and oriented X 3, normal motor function, normal sensory func tion, no focal deficits noted. [] Psychologic: Affect normal, judgement normal, mood normal. [] EKG: EKG: [] Radiology/Procedures: Radiology/Procedures: [] Course & Med Decision Making: Course & Med Decision Making Pertinent Labs and Imaging studies reviewed. (See chart for details) [ED course: Evaluation reveals a 73-year-old male with a Bernabe catheter in place. He does have some pink-tinged urine he is just completed a course of antibiotics. Given the fact that he is asymptomatic I have instructed him to drink plenty of fluids and make sure that his urine turns a normal color over the course the next several days. Certainly if he develops any fever chills sweats or difficulty urinating he needs to come back to the emergency department immediately. Patient did voice an understanding to this.] Dragon Disclaimer: Dragon Disclaimer: This electronic medical record was generated, in whole or in part, using a voice recognition dictation system. Departure Departure Impression: Primary Impression: Encounter for Benrabe catheter removal Disposition: 01 HOME, SELF-CARE Condition: STABLE Referrals: AJIT CARTER MD (PCP) Justicifation of Admission Dx: Justifications for Admission: Justification of Admission Dx: No ROYCE MAHONEY DO Sep 27, 2019 22:25
== END 2019-09-27 22:43 | disposition home or self-care (01) ==
LOC: ER 21:31
DX: R31.9 Hematuria, unspecified (principal); E78.00 Pure hypercholesterolemia, unspecified; I10 Essential (primary) hypertension; F17.200 Nicotine dependence, unspecified, uncomplicated; F12.90 Cannabis use, unspecified, uncomplicated; Z98.890 Other specified postprocedural states; Z46.6 Encounter for fitting and adjustment of urinary device
CPT/HCPCS: 99281

== ENCOUNTER 2020-09-03 09:49 | Inpatient (IN) | payer MEDICARE, MEDICAID ==
[~2020-09-03] VITALS: Ht 200.7 cm; Wt 93.7 kg
[~2020-09-03 09:49] MED LIST changes: +ACET325T21 PO; +ALBU2.5V8 IH; +AMLO-186 PO; +ASPI-630 PO; +CALC200T23 PO; +GUAI-305 PO; +LISI10TA16 PO; -LISI10TA2 PO; +PRED20TA PO
--- NOTE | 2020-09-03 10:05 | PHYS DOC ---
Past Medical History Past Medical History: High Cholesterol, Hypertension Past Surgical History: Other Additional Past Surgical Histo: inguinal hernia repair 09/12/19 Smoking Status: Current Every Day Smoker Alcohol Use: Rarely Drug Use: Cocaine, Marijuana, Methamphetamine General Adult HPI: HPI: Patient is a 74 year old male presenting for shortness of breath. This is a chronic issue. He was seen at our facility approximately 6 weeks ago for similar symptoms and admitted. He was treated for acute exacerbation of COPD at that time; however, he has never had formal history of COPD in the past due to poor outpatient follow-up. Patient was discharged home on Breo Ellipta and rescue albuterol inhaler for use as needed, he is unsure what happened to his Brio Ellipta inhaler. He continues to smoke, abuse marijuana and "some other things that a friend gave me, but I wanted to make good with him and do what he said so he can watch my house", thinks he smoked something that was laced with the last used 2 days ago. Nonetheless, reports 2 days of acute on chronic shortness of breath with increased cough and sputum production, no change in sputum purulence. Reports use of his home rescue albuterol only and Mucinex has not provided significant relief. He is up-to-date on his COVID-19 vaccinations. No sick contacts, recent travel, dizziness/lightheadedness, fever, chest pain, ripping or tearing sensation in chest, abdominal pain. Admits he saw his prima care physician early last week, was referred out to [facility] for urologist but not sure why. States he has had having urinary symptoms but has not followed up with urologist. His health literacy is poor and subsequently contributes to his poor history. Review of Systems: Review of Systems: Fourteen body systems of review of systems have been reviewed. See HPI for pertinent positives and negative responses, other olmos all other systems are negative, non-pertinent or non-contributory Heart Score: C/O Chest Pain: No HEART Score for Chest Pain: HEART Score for Chest Pain Response (Comments) Value History Moderately Suspicious 1 ECG Normal 0 Age > 65 2 Risk Factors 1 or 2 Risk Factors 1 Total 4 Risk Factors: Risk Factors: DM, Current or recent (<one month) smoker, HTN, HLP, family history of CAD, obesity. Risk Scores: Score 0 - 3: 2.5% MACE over next 6 weeks - Discharge Home Score 4 - 6: 20.3% MACE over next 6 weeks - Admit for Clinical Observation Score 7 - 10: 72.7% MACE over next 6 weeks - Early Invasive Strategies Allergies: Allergies: Allergies Coded Allergies Type Severity Reaction Last Updated Verified No Known Drug Allergies 09/12/19 No Physical Exam: PE: Constitutional: Age-appropriate, requiring assistance with transfer due to shortness of breath, nontoxic in appearance HENT: Normocephalic, atraumatic, bilateral external ears normal, oropharynx dry with poor dentition, no oral exudates, nose normal. Eyes: PERRLA, EOMI, conjunctiva normal, no discharge. Neck: Normal range of motion, no tenderness, supple, no stridor. Cardiovascular: Heart rate tachycardic, sinus rhythm, no murmurs rubs or gallops Lungs & Thorax: Wheezing present globally, no increased work of breathing and/or obvious respiratory distress or accessory muscle usa Abdomen: Bowel sounds normal, soft, no tenderness, no masses, no pulsatile masses. Nonsurgical abdomen, no peritoneal signs Skin: Warm, dry, no erythema, no rash. Back: No tenderness, no CVA tenderness. Extremities: No tenderness, no cyanosis, no clubbing, ROM intact, no edema. Neurologic: Alert and oriented X 3, grossly normal motor & sensory function, no focal deficits noted. Psychologic: Affect normal, memory and judgment appear poor demonstrating poor health literacy, mood normal. Current Patient Data: Labs: Laboratory Tests Test 09/03/20 10:12 White Blood Count 7.0 x10^3/uL Red Blood Count 5.76 x10^6/uL Hemoglobin 17.3 g/dL Hematocrit 51.4 % Mean Corpuscular Volume 89 fL Mean Corpuscular Hemoglobin 30 pg Mean Corpuscular Hemoglobin Concent 34 g/dL Red Cell Distribution Width 14.8 % Platelet Count 210 x10^3/uL Neutrophils (%) (Auto) 61 % Lymphocytes (%) (Auto) 28 % Monocytes (%) (Auto) 7 % Eosinophils (%) (Auto) 4 % Basophils (%) (Auto) 1 % Neutrophils # (Auto) 4.2 x10^3/uL Lymphocytes # (Auto) 1.9 x10^3/uL Monocytes # (Auto) 0.5 x10^3/uL Eosinophils # (Auto) 0.3 x10^3/uL Basophils # (Auto) 0.0 x10^3/uL Sodium Level 142 mmol/L Potassium Level 4.3 mmol/L Chloride Level 101 mmol/L Carbon Dioxide Level 32 mmol/L Anion Gap 9 Blood Urea Nitrogen 17 mg/dL Creatinine 1.4 mg/dL Estimated GFR (Cockcroft-Gault) 59.6 Glucose Level 170 mg/dL Calcium Level 9.3 mg/dL Troponin I Quantitative < 0.017 ng/mL Current Medications Medications (Trade) Dose Ordered Sig/Annailse Route PRN Reason Start Time Stop Time Status Last Admin Dose Admin Albuterol/ Ipratropium (Duoneb) 3 ml 1X ONCE NEB 09/03/20 10:30 09/03/20 10:31 DC 09/03/20 10:34 Methylprednisolone Sodium Succinate (SOLU-Medrol 125MG VIAL) 125 mg 1X ONCE IV 09/03/20 10:30 09/03/20 10:31 DC 09/03/20 10:52 Aspirin (Aspirin Chewable) 324 mg 1X ONCE PO 09/03/20 10:30 09/03/20 10:31 DC 09/03/20 10:52 Vital Signs: Vital Signs Date Time Temp Pulse Resp B/P (MAP) Pulse Ox O2 Delivery O2 Flow Rate FiO2 09/03/20 09:54 97.9 106 18 151/106 (121) 91 Room Air 97.9 09/03/20 10:34 2.0 Vital Signs Date Time Temp Pulse Resp B/P (MAP) Pulse Ox O2 Delivery O2 Flow Rate FiO2 09/03/20 10:34 92 Nasal Cannula 2.0 09/03/20 09:54 97.9 106 18 151/106 (121) 97.9 EKG: EKG: EKG ordered and interpreted by myself 1008 hrs. as sinus rhythm at 104 bpm, unremarkable intervals, no axis deviation, no acute ischemic findings, no STEMI Radiology/Procedures: Radiology/Procedures: XR CHEST 1V History: Reason: shob with cough / Spl. Instructions: / History: Comparison: July 10, 2020 Findings: Hyperinflation with emphysematous changes. No consolidation or pleural effusion. Normal heart size. No pneumothorax. Impression: 1. Hyperinflation with emphysematous changes. No new consolidation. Electronically signed by: Louie Leonard DO (09/03/2020 11:06 AM) [id number] Course & Med Decision Making: Course & Med Decision Making Airway patent, breathing unlabored, IV access and vitals obtained concerning for room air hypoxia when at rest and exacerbated with physical exertion and tachycardia HPI, physical examination comprehensive ER work-up concerning for any emergent or surgical issues. With that said, despite ER intervention patient still dependent on supplemental oxygen to keep saturations greater than 90% even at rest Patient symptoms improved with administered steroids and DuoNeb treatment. Not meeting indication for antibiotics at present. Unlikely pulmonary embolism, more likely exacerbated bronchospasm from ongoing tobacco and other illicit drug use I contacted hospitalist service and discussed need for admission given patient's poor health literacy and concern for discharge home without oxygen and appropriate inhalers and other medical devices needed to improve current condition, he was accepted for admission I updated patient on proposed plan of care that includes hospital admission for continued inpatient medical management and he was amenable. All questions and concerns addressed prior to ER departure Critical Care Time This patient required critical care. Due to the fact that the patient required a significant amount of one on one physician - patient contact time, ordering and review of studies, arranging urgent treatment with development of a management plan, evaluation of patients response to treatment with frequent reassessments, and discussions with other providers this patient required 30 minutes of critical care time. Critical care time was indicated due to the inherent instability and/or potential for instability in this patient. The critical care time that is allocated to this patient is above and beyond any time spent on any other billable procedures performed on this patient. Dragon Disclaimer: Dragon Disclaimer: This electronic medical record was generated, in whole or in part, using a voice recognition dictation system. Departure Departure Impression: Primary Impression: COPD (chronic obstructive pulmonary disease) Additional Impression: Hypoxia Disposition: ADMITTED INPATIENT Admitting Physician: PAPI (DR HERBERT) Condition: STABLE Referrals: AJIT CARTER MD (PCP) AYAZ WAITE DO Sep 03, 2020 10:05
[2020-09-03] MEDS ORDERED: IPRATRPIUM/ALBUTEROL 0.5/2.5MG 3 ML NEBU. NEB ONE (10:30)
[2020-09-03] MEDS ORDERED: methylPREDNISolone SOD SUCC PF 125 MG/2 ML VIAL. IV ONE (10:30)
[2020-09-03] MEDS ORDERED: ASPIRIN CHEWABLE 81 MG TABLET. PO ONE (10:30)
[2020-09-03 10:36] LABS: BASO % 1 % (0-3); EOS # 0.3 x10^3/uL (0.0-0.7); EOS % 4 % (0-3); HEMATOCRIT 51.4 % (39.0-53.0); HEMOGLOBIN 17.3 g/dL (13.0-17.5); LYMPH # 1.9 x10^3/uL (1.0-4.8); LYMPH % 28 % (24-48); MEAN CORPUSCULAR HEMOGLOBIN 30 pg (25-35); MEAN CORPUSCULAR HGB CONC 34 g/dL (31-37); MEAN CORPUSCULAR VOLUME 89 fL (79-100); MONO # 0.5 x10^3/uL (0.0-1.1); MONO % 7 % (0-9); NEUT # 4.2 x10^3/uL (1.8-7.7); NEUT % 61 % (31-73); PLATELET COUNT 210 x10^3/uL (140-400); RED BLOOD COUNT 5.76 x10^6/uL (4.30-5.70); RED CELL DISTRIBUTION WIDTH 14.8 % (11.5-14.5)
[2020-09-03 10:53] LABS: CALCIUM 9.3 mg/dL (8.5-10.1); CREATININE 1.4 mg/dL (0.7-1.3); GFR 59.6; POTASSIUM 4.3 mmol/L (3.5-5.1)
--- NOTE | 2020-09-03 11:08 | RAD ---
XR CHEST 1V History: Reason: shob with cough / Spl. Instructions: / History: Comparison: July 10, 2020 Findings: Hyperinflation with emphysematous changes. No consolidation or pleural effusion. Normal heart size. N o pneumothorax. Impression: 1. Hyperinflation with emphysematous changes. No new consolidation. Electronically signed by: Louie Leonard DO (09/03/2020 11:06 AM) [id number]
--- NOTE | 2020-09-03 11:23 | EKG ---
[facility] [address] [place] [address] Test Date: 2020-09-03 Test Time: 10:06:53 Pat Name: AJIT LYNN Department: Room: Gender: Retail Advisor: : 1945 Requested By: AYAZ WAITE Order Number: [id number] Reading MD: Jay Castano Measurements Intervals [place] Rate: 104 P: 74 CT: 174 QRS: 68 QRSD: 74 T: 66 QT: 330 QTc: 434 Interpretive Statements SINUS TACHYCARDIA BIATRIAL ENLARGEMENT ABNORMAL ECG RI6.01 Electronically Signed On 09-04-2020 11:50:57 CDT by Jay Castano
[2020-09-03] MEDS ORDERED: ACETAMINOPHEN 325 MG TABLET. PO PRN (11:30)
[2020-09-03] MEDS ORDERED: NITROGLYCERIN SUBLINGUAL 0.4 MG BOTTLE OF 25. SL PRN (11:30)
[2020-09-03] MEDS ORDERED: ONDANSETRON PF 4 MG/2 ML VIAL. IV PRN (11:30)
[2020-09-03] MEDS ORDERED: ELECTROLYTE (NON-ICU) PROTOCOL. MC PRN (12:00)
[2020-09-03] MEDS ORDERED: CALCIUM CARBONATE 500 MG TAB.CHEW PO PRN (12:00)
[2020-09-03] MEDS ORDERED: ONDANSETRON PF 4 MG/2 ML VIAL. IVP PRN (12:00)
[2020-09-03] MEDS ORDERED: BUDESONIDE 0.5 MG/2 ML NEBU. NEB ONE (12:30)
[2020-09-03 15:00] VITALS: BP 135/63
[2020-09-03] MEDS: IPRATRPIUM/ALBUTEROL 0.5/2.5MG 3 ML NEBU. NEB SCH ×2 (16:24→18:55)
--- NOTE | 2020-09-03 16:46 | PDOC1 ---
History and Physical Date of Service: DOS: DATE: 09/03/20 TIME: 16:36 Chief Complaint: Chief Complain: COPD exacerbation History of Present Illness: Reason for Visit: COPD exacerbation HPI: Patient is a 74 year old male presenting for worsening shortness of breath likely secondary to a COPD exacerbation. He is frequently seen at this facility for very similar complaints; is noted to be very noncompliant as an outpatient with medications and follow-ups. Very poor historian overall. Patient reports around 2 days ago his shortness of breath cough started worsening. He says his cough has been productive of greenish phlegm. He tried Mucinex for the cough however that "dried him out too much". He does have a home albuterol rescue inhaler and has been taking it with some symptom relief for short periods of time. Patient is an active smoker and admits he has been for several decades, he also does admit to drug use but would not provide me with any specifics. He also does report drinking alcohol up pretty frequently. Past Medical/Surgical History: PMH/PSH: COPD, right inguinal hernia, hypertension, alcohol abuse, drug abuse Allergies: Allergies: Coded Allergies: No Known Drug Allergies (Unverified , 09/12/19) Family History: Family History: Patient would not elaborate. Social History: Social History: He does endorse alcohol drug and tobacco use Current Medications: Current Medications Current Medications Albuterol/ Ipratropium (Duoneb) 3 ml 1X ONCE NEB Last administered on 09/03/20at 10:34; Start 09/03/20 at 10:30; Stop 09/03/20 at 10:31; Status DC Methylprednisolone Sodium Succinate (SOLU-Medrol 125MG VIAL) 125 mg 1X ONCE IV Last administered on 09/03/20at 10:52; Start 09/03/20 at 10:30; Stop 09/03/20 at 10:31; Status DC Aspirin (Aspirin Chewable) 324 mg 1X ONCE PO Last administered on 09/03/20at 10:52; Start 09/03/20 at 10:30; Stop 09/03/20 at 10:31; Status DC Ondansetron HCl (Zofran) 4 mg PRN Q8HRS PRN IV NAUSEA/VOMITING; Start 09/03/20 at 11:30; Stop 09/04/20 at 11:29 Acetaminophen (Tylenol) 650 mg PRN Q4HRS PRN PO FEVER > 100.3'F; Start 09/03/20 at 11:30; Stop 09/04/20 at 11:29 Nitroglycerin (Nitrostat) 0.4 mg PRN Q5MIN PRN SL CHEST PAIN; Start 09/03/20 at 11:30; Stop 09/04/20 at 11:29 Albuterol/ Ipratropium (Duoneb) 3 ml RTQID NEB Last administered on 09/03/20at 16:24; Start 09/03/20 at 12:00; Stop 09/04/20 at 11:59 Ondansetron HCl (Zofran) 4 mg PRN Q6HRS PRN IVP NAUSEA/VOMITING; Start 09/03/20 at 12:00 Calcium Carbonate/ Glycine (Tums) 500 mg PRN Q3HRS PRN PO UPSET STOMACH; Start 09/03/20 at 12:00 Info (Non-Icu Electrolyte Protocol) 1 ea PRN DAILY PRN MC SEE COMMENTS; Start 09/03/20 at 12:00 Senna/Docusate Sodium (Senna Plus) 1 tab BID PO ; Start 09/03/20 at 21:00 Heparin Sodium (Porcine) (Heparin Sodium) 5,000 unit Q8HRS SQ ; Start 09/03/20 at 22:00 Prednisone (Prednisone) 40 mg DAILY PO ; Start 09/04/20 at 09:00 Budesonide (Pulmicort) 0.5 mg 1X ONCE NEB Last administered on 09/03/20at 16:24; Start 09/03/20 at 12:30; Stop 09/03/20 at 12:31; Status DC Active Scripts Active Prednisone 20 Mg Tablet 40 Mg PO DAILY 7 Days Calcium Carbonate 200 Mg Tab.chew 500 Mg PO PRN Q3HRS PRN 14 Days Acetaminophen 325 Mg Tablet 650 Mg PO PRN Q6HRS PRN 30 Days Amlodipine Besylate 5 Mg Tablet 5 Mg PO DAILY 30 Days Reported Aspirin 81 Mg Tab.chew 1 Tab PO DAILY Guaifenesin-Pse ER 600-60 mg (Guaifenesin/Pseudoephedrne HCl) 1 Each Tab.er.12h 1 Each PO BID Proventil Hfa (Albuterol Sulfate) 6.7 Gm Hfa.aer.ad 2 Puff INH PRN Q6HRS PRN Dyazide 37.5-25 Capsule (Triamterene/Hydrochlorothiazid) 1 Each Capsule 1 Cap PO DAILY ROS: Review of Systems Review of System REVIEW OF SYSTEMS: GENERAL: Denies weakness. EYES: No blurred, double or loss of vision. NOSE AND THROAT: No history of nosebleeds, hoarseness or sore throat. HEART: Endorses shortness of breath with exertion LUNGS: Endorses productive cough, shortness of breath, wheezing GASTROINTESTINAL: Denies changes in appetite, nausea, vomiting, diarrhea or constipation. GENITOURINARY: No history of frequency, urgency, hesitancy or nocturia. NEUROLOGIC: Denies history of numbness, tingling, or tremor. PSYCHIATRIC: No history of panic, anxiety or depression. ENDOCRINE: No history of heat or cold intolerance, polyuria or polydipsia. EXTREMITIES: Denies joint pain, pain on walking or stiffness. Physical Exam: Vital Signs: Vital Signs Date Time Temp Pulse Resp B/P (MAP) Pulse Ox O2 Delivery O2 Flow Rate FiO2 09/03/20 16:24 94 Nasal Cannula 2.0 09/03/20 15:00 98.3 76 16 135/63 (87) 98.3 Physcial Exam: GEN: No apparent distress. Poor historian HEENT: Normal cephalic, atraumatic, external auditory canals are patent MUSCULOSKELETAL: Well developed , well nourished, good range of motion ENDOCRINE: No thyromegaly was palpated LYMPHATICS: No cervical chain or axillary nodes were noted HEMATOPOIETIC: No bruising NECK: Supple, no JVD, no thyromegaly was noted LUNGS: Coarse expiratory wheezing throughout all lung pierce. Requiring supplemental oxygen when evaluated HEART: RRR, S1, S2 present. Peripheral pulses intact, no obvious murmurs noted ABDOMEN: Soft, nontender. Positive bowel sounds, no organomegaly, normal bowel sounds EXTREMITIES: Without clubbing, cyanosis, or edema. Pedal pulses intact NEUROLOGIC: Normal speech and tone. A&O x 3, moves all extremities, no obvious focal deficits PSYCHIATRIC: Normal affect, normal mood. Stable SKIN: No ulcerations or rashes, good skin turgor, no jaundice Labs: Labs: Laboratory Tests Test 09/03/20 10:12 White Blood Count 7.0 x10^3/uL (4.0-11.0) Red Blood Count 5.76 x10^6/uL (4.30-5.70) Hemoglobin 17.3 g/dL (13.0-17.5) Hematocrit 51.4 % (39.0-53.0) Mean Corpuscular Volume 89 fL (79-100) Mean Corpuscular Hemoglobin 30 pg (25-35) Mean Corpuscular Hemoglobin Concent 34 g/dL (31-37) Red Cell Distribution Width 14.8 % (11.5-14.5) Platelet Count 210 x10^3/uL (140-400) Neutrophils (%) (Auto) 61 % (31-73) Lymphocytes (%) (Auto) 28 % (24-48) Monocytes (%) (Auto) 7 % (0-9) Eosinophils (%) (Auto) 4 % (0-3) Basophils (%) (Auto) 1 % (0-3) Neutrophils # (Auto) 4.2 x10^3/uL (1.8-7.7) Lymphocytes # (Auto) 1.9 x10^3/uL (1.0-4.8) Monocytes # (Auto) 0.5 x10^3/uL (0.0-1.1) Eosinophils # (Auto) 0.3 x10^3/uL (0.0-0.7) Basophils # (Auto) 0.0 x10^3/uL (0.0-0.2) Sodium Level 142 mmol/L (136-145) Potassium Level 4.3 mmol/L (3.5-5.1) Chloride Level 101 mmol/L (98-107) Carbon Dioxide Level 32 mmol/L (21-32) Anion Gap 9 (6-14) Blood Urea Nitrogen 17 mg/dL (8-26) Creatinine 1.4 mg/dL (0.7-1.3) Estimated GFR (Cockcroft-Gault) 59.6 Glucose Level 170 mg/dL (70-99) Calcium Level 9.3 mg/dL (8.5-10.1) Troponin I Quantitative < 0.017 ng/mL (0.000-0.055) Laboratory Tests Test 09/03/20 10:12 White Blood Count 7.0 x10^3/uL (4.0-11.0) Red Blood Count 5.76 x10^6/uL (4.30-5.70) Hemoglobin 17.3 g/dL (13.0-17.5) Hematocrit 51.4 % (39.0-53.0) Mean Corpuscular Volume 89 fL (79-100) Mean Corpuscular Hemoglobin 30 pg (25-35) Mean Corpuscular Hemoglobin Concent 34 g/dL (31-37) Red Cell Distribution Width 14.8 % (11.5-14.5) Platelet Count 210 x10^3/uL (140-400) Neutrophils (%) (Auto) 61 % (31-73) Lymphocytes (%) (Auto) 28 % (24-48) Monocytes (%) (Auto) 7 % (0-9) Eosinophils (%) (Auto) 4 % (0-3) Basophils (%) (Auto) 1 % (0-3) Neutrophils # (Auto) 4.2 x10^3/uL (1.8-7.7) Lymphocytes # (Auto) 1.9 x10^3/uL (1.0-4.8) Monocytes # (Auto) 0.5 x10^3/uL (0.0-1.1) Eosinophils # (Auto) 0.3 x10^3/uL (0.0-0.7) Basophils # (Auto) 0.0 x10^3/uL (0.0-0.2) Sodium Level 142 mmol/L (136-145) Potassium Level 4.3 mmol/L (3.5-5.1) Chloride Level 101 mmol/L (98-107) Carbon Dioxide Level 32 mmol/L (21-32) Anion Gap 9 (6-14) Blood Urea Nitrogen 17 mg/dL (8-26) Creatinine 1.4 mg/dL (0.7-1.3) Estimated GFR (Cockcroft-Gault) 59.6 Glucose Level 170 mg/dL (70-99) Calcium Level 9.3 mg/dL (8.5-10.1) Troponin I Quantitative < 0.017 ng/mL (0.000-0.055) Assessment/Plan Assessment/Plan Patient is 74-year-old -[place] male presenting for COPD exacerbation. COPD exacerbation, acute hypoxic respiratory failure, tobacco abuse -Patient with frequent admissions for COPD exacerbations -Was given breathing treatments and Solu-Medrol in the emergency room, with improvement in symptoms -We will start patient on oral prednisone frederick -Willy scheduled -Educated patient on the importance of outpatient follow-up and medication compliance Alcohol abuse, drug abuse -We will discuss with patient if he desires treatment in this regard. Justifications for Admission Other Justification Acute COPD, acute respiratory failure with hypoxia JULIENNE HERBERT MD Sep 03, 2020 16:46
[2020-09-03 19:00] VITALS: BP 153/90
[2020-09-03] MEDS: SENNOSIDES/DOCUSATE 8.6/50MG TABLET. PO SCH (21:00)
[2020-09-03] MEDS: predniSONE 20 MG TABLET PO SCH (21:18)
[2020-09-03] MEDS: HEPARIN for SUB-Q USE 5,000 UNIT/ML VIAL. SQ SCH (21:46)
[2020-09-03 23:00] VITALS: BP 128/85
[2020-09-04 03:00] VITALS: BP 142/95
[2020-09-04] MEDS: HEPARIN for SUB-Q USE 5,000 UNIT/ML VIAL. SQ SCH ×3 (05:50→21:28)
[2020-09-04 07:00] VITALS: BP 141/92
[2020-09-04] MEDS: IPRATRPIUM/ALBUTEROL 0.5/2.5MG 3 ML NEBU. NEB SCH ×3 (07:32→20:10)
[2020-09-04] MEDS: SENNOSIDES/DOCUSATE 8.6/50MG TABLET. PO SCH ×2 (08:20→21:00)
--- NOTE | 2020-09-04 10:10 | NUR ---
SW following. Discussed with RN, pt from home alone, 2L (does not use oxygen at home). Pt refusing treatment other than breathing treatment. RN advised no SW needs at this time. SW will continue to follow.
[2020-09-04 11:00] VITALS: BP 122/78
[2020-09-04 15:00] VITALS: BP 138/68
--- NOTE | 2020-09-04 16:29 | PDOC ---
[facility] PROGRESS NOTE Date of Service DOS: DATE: 09/04/20 TIME: 16:27 Chief Complaint Chief Complaint Patient is 74-year-old -Stateless male presenting for COPD exacerbation. COPD exacerbation, acute hypoxic respiratory failure, tobacco abuse -Patient with frequent admissions for COPD exacerbations -Was given breathing treatments and Solu-Medrol in the emergency room, with improvement in symptoms -We will start patient on oral prednisone burst -DuoNebs scheduled -Educated patient on the importance of outpatient follow-up and medication compliance Alcohol abuse, drug abuse -We will discuss with patient if he desires treatment in this regard. History of Present Illness History of Present Illness Patient is a 74 year old male presenting for worsening shortness of breath likely secondary to a COPD exacerbation. He is frequently seen at this facility for very similar complaints; is noted to be very noncompliant as an outpatient with medications and follow-ups. Very poor historian overall. Patient reports around 2 days ago his shortness of breath cough started worsening. He says his cough has been productive of greenish phlegm. He tried Mucinex for the cough however that "dried him out too much". He does have a home albuterol rescue inhaler and has been taking it with some symptom relief for short periods of time. Patient is an active smoker and admits he has been for several decades, he also does admit to drug use but would not provide me with any specifics. He also does report drinking alcohol up pretty frequently. 09/04/20: Afebrile, breathing on Room Air. Vitals/I&O Vitals/I&O: Vital Signs Date Time Temp Pulse Resp B/P (MAP) Pulse Ox O2 Delivery O2 Flow Rate FiO2 09/04/20 15:00 98.3 92 18 138/68 (91) 92 Room Air 98.3 09/04/20 10:58 3.0 Physical Exam General: Alert, Cooperative Heart: Regular rate Lungs: Clear, Other Abdomen: Soft, No tenderness Extremities: No clubbing, No cyanosis Skin: No rashes, No breakdown Assessment and Plan Assessmemt and Plan Problems Medical Problems: (1) Acute respiratory distress Status: Acute (2) Hypoxia Status: Acute Comment Review of Relevant I have reviewed the following items cele (where applicable) has been applied. Medications: Current Medications Medications (Trade) Dose Ordered Sig/Annalise Route PRN Reason Start Time Stop Time Status Last Admin Dose Admin Prednisone (Prednisone) 40 mg DAILY PO 09/04/20 09:00 09/03/20 21:18 Justifications for Admission Other Justification Acute COPD, acute respiratory failure with hypoxia HARPAL VILLALPANDO MD Sep 04, 2020 16:29
--- NOTE | 2020-09-04 17:10 | PDOC ---
[facility] PROGRESS NOTE Date of Service DOS: DATE: 09/04/20 TIME: 17:08 Chief Complaint Chief Complaint Patient is 74-year-old -[place] male presenting for COPD exacerbation. COPD exacerbation, acute hypoxic respiratory failure, tobacco abuse -Patient with frequent admissions for COPD exacerbations -Was given breathing treatments and Solu-Medrol in the emergency room, with improvement in symptoms -continue Prednisone -No indication for ABX at this point -Willy scheduled -Educated patient on the importance of outpatient follow-up and medication compliance Alcohol abuse, drug abuse -We will discuss with patient if he desires treatment in this regard. History of Present Illness History of Present Illness Patient is a 74 year old male presenting for worsening shortness of breath likely secondary to a COPD exacerbation. He is frequently seen at this facility for very similar complaints; is noted to be very noncompliant as an outpatient with medications and follow-ups. Very poor historian overall. Patient reports around 2 days ago his shortness of breath cough started worsening. He says his cough has been productive of greenish phlegm. He tried Mucinex for the cough however that "dried him out too much". He does have a home albuterol rescue inhaler and has been taking it with some symptom relief for short periods of time. Patient is an active smoker and admits he has been for several decades, he also does admit to drug use but would not provide me with any specifics. He also does report drinking alcohol up pretty frequently. 09/04/20: Patient seen and examined stil c/o SOB and weakness but somewhat improved Otherwise no complaints Eating, drinking normally Plan discussed with bedside RN. Vitals/I&O Vitals/I&O: Vital Signs Date Time Temp Pulse Resp B/P (MAP) Pulse Ox O2 Delivery O2 Flow Rate FiO2 09/04/20 15:00 98.3 92 18 138/68 (91) 92 Room Air 98.3 09/04/20 10:58 3.0 Physical Exam General: Alert, Cooperative Heart: Regular rate Lungs: Other Abdomen: Soft, No tenderness Extremities: No clubbing, No cyanosis Skin: No rashes, No breakdown Assessment and Plan Assessmemt and Plan Problems Medical Problems: (1) Acute respiratory distress Status: Acute (2) Hypoxia Status: Acute Comment Review of Relevant I have reviewed the following items cele (where applicable) has been applied. Medications: Current Medications Medications (Trade) Dose Ordered Sig/Annalise Route PRN Reason Start Time Stop Time Status Last Admin Dose Admin Prednisone (Prednisone) 40 mg DAILY PO 09/04/20 09:00 09/03/20 21:18 Justifications for Admission Other Justification Acute COPD, acute respiratory failure with hypoxia JULIENNE HERBERT MD Sep 04, 2020 17:10
[2020-09-04] MEDS ORDERED: AZITHROMYCIN 250 MG TABLET. PO ONE (17:30)
[2020-09-04] MEDS: guaiFENesin DM 600/30MG 1 TAB TAB.ER.12H PO SCH (18:06)
[2020-09-04 19:43] VITALS: BP 144/82
[2020-09-04 22:33] VITALS: BP 146/87
[2020-09-05 03:46] VITALS: BP 166/103
[2020-09-05] MEDS: HEPARIN for SUB-Q USE 5,000 UNIT/ML VIAL. SQ SCH ×3 (04:54→21:13)
[2020-09-05 07:00] VITALS: BP 157/102
[2020-09-05] MEDS: IPRATRPIUM/ALBUTEROL 0.5/2.5MG 3 ML NEBU. NEB SCH ×5 (07:39→19:37)
[2020-09-05] MEDS: SENNOSIDES/DOCUSATE 8.6/50MG TABLET. PO SCH ×2 (08:49→21:00)
[2020-09-05] MEDS: guaiFENesin DM 600/30MG 1 TAB TAB.ER.12H PO SCH ×2 (08:56→21:04)
[2020-09-05] MEDS: predniSONE 20 MG TABLET PO SCH (08:57)
[2020-09-05] MEDS: AZITHROMYCIN 250 MG TABLET. PO SCH (08:57)
--- NOTE | 2020-09-05 10:20 | NUR ---
SW following. Discussed with RN, pt wanting to go home today. 6 minute walk needed prior to discharge - SW awaiting results. SW will continue to follow.
--- NOTE | 2020-09-05 10:46 | CONS ---
DATE OF CONSULTATION: 09/05/2020 ATTENDING PHYSICIAN: Dr. Harry. REASON FOR CONSULTATION: Dyspnea. HISTORY OF PRESENT ILLNESS: Saul is a 74-year-old male who has history of COPD. He smoked on and off for a long time. According to him he smoked to be manly. The patient was brought into the hospital with increasing shortness of breath. The patient states that he was using his inhaler very frequently. He has a cough with mucus production. He tried Mucinex, but it did not make him any better. The color of the sputum is light todd. He denies any fever, chills, no chest pains. No headaches, no nausea, vomiting, no diarrhea, no dysuria. No focal weakness. I reviewed the patient's chest x-ray. It shows hyperinflated lungs secondary to COPD. No consolidation observed. Consultation requested for further evaluation and management. The patient is not on home oxygen, but is requiring oxygen currently. PAST MEDICAL HISTORY: History of COPD, unknown, FEV1 could be severe. History of hypertension, alcohol abuse and substance abuse. PAST SURGICAL HISTORY: Right inguinal hernia. ALLERGIES: None. FAMILY HISTORY: Noncontributory to lungs. MEDICATIONS: Reviewed as listed in the MRAD including azithromycin, DuoNebs, oral prednisone. SOCIAL HISTORY: Smoked on and off for a long time. He does not give any precise history of years of tobacco. REVIEW OF SYSTEMS: A 12-point system obtained. Pertinent positives discussed in my present illness, otherwise noncontributory. All systems that were negative were reviewed as well. PHYSICAL EXAMINATION: VITAL SIGNS: Reviewed. He is afebrile. Blood pressure 157/102, pulse ox 94% on 3 liters. NECK: Supple. LUNGS: With faint bilateral expiratory wheezes. CARDIOVASCULAR: With a regular rate. ABDOMEN: Soft. EXTREMITIES: With no pitting edema. LABORATORY DATA: Reviewed. White cell count 7.0, hemoglobin 17.3, platelets are 210. BUN 17, creatinine 1.4. IMPRESSION: 1. Acute hypoxic respiratory failure secondary to acute exacerbation of chronic obstructive pulmonary disease and acute bronchitis. 2. Abnormal chest x-ray with hyperinflated lungs consistent with chronic obstructive pulmonary disease, but no definite consolidation. 3. Persistent bronchospasm. Dyspnea worsens with exertion due to bronchospasm. RECOMMENDATIONS: 1. We will continue with present oxygen. Keep saturation 92 and above. 2. Continue DuoNeb and add steroid, nebulizer, Pulmicort. 3. Continue oral prednisone. 4. Continue DVT prophylaxis. 5. Continue empiric antibiotics. 6. PFTs as an outpatient. 7. Anticipate hospitalization 24-48 hours until bronchospasm is resolved. Discussed with SHAYNE QUINTANILLA/[place] [place] SOC[place]/shar TID: [id number]
[2020-09-05 11:00] VITALS: BP 135/86
[2020-09-05] MEDS: BUDESONIDE 0.5 MG/2 ML NEBU. NEB SCH ×3 (11:13→19:37)
--- NOTE | 2020-09-05 14:06 | PDOC ---
[facility] PROGRESS NOTE Date of Service DOS: DATE: 09/05/20 TIME: 14:03 Chief Complaint Chief Complaint Patient is 74-year-old -[place] male presenting for COPD exacerbation. COPD exacerbation, acute hypoxic respiratory failure, tobacco abuse -Patient with frequent admissions for COPD exacerbations -Was given breathing treatments and Solu-Medrol in the emergency room, with improvement in symptoms -continue Prednisone -No indication for ABX at this point -Willy scheduled -Educated patient on the importance of outpatient follow-up and medication compliance Alcohol abuse, drug abuse -We will discuss with patient if he desires treatment in this regard. History of Present Illness History of Present Illness Patient is a 74 year old male presenting for worsening shortness of breath likely secondary to a COPD exacerbation. He is frequently seen at this facility for very similar complaints; is noted to be very noncompliant as an outpatient with medications and follow-ups. Very poor historian overall. Patient reports around 2 days ago his shortness of breath cough started worsening. He says his cough has been productive of greenish phlegm. He tried Mucinex for the cough however that "dried him out too much". He does have a home albuterol rescue inhaler and has been taking it with some symptom relief for short periods of time. Patient is an active smoker and admits he has been for several decades, he also does admit to drug use but would not provide me with any specifics. He also does report drinking alcohol up pretty frequently. 09/04/20: Patient seen and examined stil c/o SOB and weakness but somewhat improved Otherwise no complaints Eating, drinking normally Plan discussed with bedside RN. 09/05/2020: Afebrile, currently breathing on 3 L nasal cannula. Complains of some intermittent shortness of breath with exertion. Some improvement with sputum production. We will continue treatment with prednisone, azithromycin, and breathing treatments as necessary. Vitals/I&O Vitals/I&O: Vital Signs Date Time Temp Pulse Resp B/P (MAP) Pulse Ox O2 Delivery O2 Flow Rate FiO2 09/05/20 11:13 95 Nasal Cannula 3.0 09/05/20 11:00 97.6 85 16 135/86 (102) 97.6 I & O 09/04/20 09/04/20 09/05/20 15:00 23:00 07:00 Intake Total 100 ml Balance 100 ml Physical Exam General: Alert, Cooperative Heart: Regular rate Lungs: Wheezing Abdomen: Soft, No tenderness Extremities: No clubbing, No cyanosis Skin: No rashes, No breakdown Assessment and Plan Assessmemt and Plan Problems Medical Problems: (1) Acute respiratory distress Status: Acute (2) Hypoxia Status: Acute Comment Review of Relevant I have reviewed the following items cele (where applicable) has been applied. Medications: Current Medications Medications (Trade) Dose Ordered Sig/Annalise Route PRN Reason Start Time Stop Time Status Last Admin Dose Admin Albuterol/ Ipratropium (Duoneb) 3 ml RTQID NEB 09/04/20 20:00 09/05/20 11:13 Azithromycin (Zithromax) 500 mg 1X ONCE PO 09/04/20 17:30 09/04/20 17:31 DC 09/04/20 18:07 Azithromycin (Zithromax) 250 mg DAILY PO 09/05/20 09:00 09/09/20 08:59 09/05/20 08:57 Guaifenesin (MUCINEX ER with DM) 1 tab BID PO 09/04/20 17:27 09/05/20 08:56 Budesonide (Pulmicort) 0.5 mg RTBID NEB 09/05/20 10:00 09/05/20 11:13 Justifications for Admission Other Justification Acute COPD, acute respiratory failure with hypoxia HARPAL VILLALPANDO MD Sep 05, 2020 14:06
[2020-09-05 15:00] VITALS: BP 172/92
[2020-09-05 19:15] VITALS: BP 164/91
[2020-09-05 23:36] VITALS: BP 150/80
[2020-09-06 03:21] VITALS: BP 168/99
[2020-09-06] MEDS: HEPARIN for SUB-Q USE 5,000 UNIT/ML VIAL. SQ SCH ×3 (05:08→21:32)
[2020-09-06 07:00] VITALS: BP 146/122
[2020-09-06] MEDS: BUDESONIDE 0.5 MG/2 ML NEBU. NEB SCH ×2 (07:04→18:02)
[2020-09-06] MEDS: IPRATRPIUM/ALBUTEROL 0.5/2.5MG 3 ML NEBU. NEB SCH ×4 (07:04→18:03)
[2020-09-06] MEDS: SENNOSIDES/DOCUSATE 8.6/50MG TABLET. PO SCH ×2 (08:02→20:56)
[2020-09-06] MEDS: guaiFENesin DM 600/30MG 1 TAB TAB.ER.12H PO SCH ×2 (08:07→20:58)
[2020-09-06] MEDS: predniSONE 20 MG TABLET PO SCH (08:08)
[2020-09-06] MEDS: AZITHROMYCIN 250 MG TABLET. PO SCH (08:08)
--- NOTE | 2020-09-06 10:14 | PDOC ---
[facility] PROGRESS NOTE Date of Service DOS: DATE: 09/06/20 TIME: 10:12 Chief Complaint Chief Complaint Patient is 74-year-old -Senegalese male presenting for COPD exacerbation. COPD exacerbation, acute hypoxic respiratory failure, tobacco abuse -Patient with frequent admissions for COPD exacerbations -Was given breathing treatments and Solu-Medrol in the emergency room, with improvement in symptoms -continue Prednisone -No indication for ABX at this point -Willy scheduled -Educated patient on the importance of outpatient follow-up and medication compliance Alcohol abuse, drug abuse -We will discuss with patient if he desires treatment in this regard. History of Present Illness History of Present Illness Patient is a 74 year old male presenting for worsening shortness of breath likely secondary to a COPD exacerbation. He is frequently seen at this facility for very similar complaints; is noted to be very noncompliant as an outpatient with medications and follow-ups. Very poor historian overall. Patient reports around 2 days ago his shortness of breath cough started worsening. He says his cough has been productive of greenish phlegm. He tried Mucinex for the cough however that "dried him out too much". He does have a home albuterol rescue inhaler and has been taking it with some symptom relief for short periods of time. Patient is an active smoker and admits he has been for several decades, he also does admit to drug use but would not provide me with any specifics. He also does report drinking alcohol up pretty frequently. 09/04/20: Patient seen and examined stil c/o SOB and weakness but somewhat improved Otherwise no complaints Eating, drinking normally Plan discussed with bedside RN. 09/05/2020: Afebrile, currently breathing on 3 L nasal cannula. Complains of some intermittent shortness of breath with exertion. Some improvement with sputum production. We will continue treatment with prednisone, azithromycin, and breathing treatments as necessary. 09/06/2020: Afebrile, currently breathing on 2 L nasal cannula. States he feels better today, feels breathing treatments are really helping. He is complaining of productive cough that we are treating with Mucinex. Still some slight wheezing on exam, but improved from yesterday. We will continue current treatment and anticipate discharge tomorrow if he continues to improve. Vitals/I&O Vitals/I&O: Vital Signs Date Time Temp Pulse Resp B/P (MAP) Pulse Ox O2 Delivery O2 Flow Rate FiO2 09/06/20 07:37 Nasal Cannula 2.0 09/06/20 07:06 97 09/06/20 07:00 97.8 84 17 146/122 (130) 97.8 I & O 09/05/20 09/05/20 09/06/20 15:00 23:00 07:00 Intake Total 300 ml 540 ml Balance 300 ml 540 ml Physical Exam General: Alert, Oriented X3, Cooperative, No acute distress Heart: Regular rate Lungs: Wheezing Abdomen: Soft, No tenderness Extremities: No clubbing, No cyanosis Skin: No rashes, No breakdown Assessment and Plan Assessmemt and Plan Problems Medical Problems: (1) Acute respiratory distress Status: Acute (2) Hypoxia Status: Acute Comment Review of Relevant I have reviewed the following items cele (where applicable) has been applied. Justifications for Admission Other Justification Acute COPD, acute respiratory failure with hypoxia HARPAL VILLALPANDO MD Sep 06, 2020 10:14
[2020-09-06 11:00] VITALS: BP 149/84
--- NOTE | 2020-09-06 11:01 | PDOC ---
PULMONARY PROGRESS NOTES DATE: 09/06/20 TIME: 10:55 Subjective pt. is resting on 3 liters NC feeling better today no overnight concerns Vitals Vital Signs Date Time Temp Pulse Resp B/P (MAP) Pulse Ox O2 Delivery O2 Flow Rate FiO2 09/06/20 07:37 Nasal Cannula 2.0 09/06/20 07:06 97 09/06/20 07:00 97.8 84 17 146/122 (130) 97.8 ROS: No Nausea, No Chest Pain, No Abdominal Pain, No Increase Cough General: Alert, No acute distress Lungs: Wheezing (faint ) Cardiovascular: S1 Abdomen: Soft Extremities: No Edema Medications Active Scripts Medications Dose Route/Sig Max Daily Dose Days Date Category Prednisone 20 Mg Tablet 40 Mg PO DAILY 7 07/11/20 Rx Calcium Carbonate 200 Mg Tab.chew 500 Mg PO PRN Q3HRS PRN 14 07/11/20 Rx Acetaminophen 325 Mg Tablet 650 Mg PO PRN Q6HRS PRN 30 07/11/20 Rx Amlodipine Besylate 5 Mg Tablet 5 Mg PO DAILY 30 07/11/20 Rx Aspirin 81 Mg Tab.chew 1 Tab PO DAILY 07/10/20 Reported Guaifenesin-Pse ER 600-60 mg (Guaifenesin/Pseudoephedrne HCl) 1 Each Tab.er.12h 1 Each PO BID 07/10/20 Reported Proventil Hfa (Albuterol Sulfate) 6.7 Gm Hfa.aer.ad 2 Puff INH PRN Q6HRS PRN 09/11/19 Reported Dyazide 37.5-25 Capsule (Triamterene/Hydrochlorothiazid) 1 Each Capsule 1 Cap PO DAILY 09/11/19 Reported Impression . IMPRESSION: 1. Acute hypoxic respiratory failure secondary to acute exacerbation of chronic obstructive pulmonary disease and acute bronchitis.--improving 2. Abnormal chest x-ray with hyperinflated lungs consistent with chronic obstructive pulmonary disease, but no definite consolidation. 3. Persistent bronchospasm. Dyspnea worsens with exertion due to bronchospasm. Plan . Updated 09/06/20 Continue supplemental oxygen to keep sats above 92 % 6 min walk prior to DC if unable to wean off oxygen Continue DuoNeb and add steroid, nebulizer, Pulmicort. Continue oral prednisone at 40mg, slow taper Continue empiric antibiotics azithromycin PFTs as an outpatient DVT/GI PPX Discussed with WINSTON JOHNSON MD Sep 06, 2020 11:01
--- NOTE | 2020-09-06 12:52 | NUR ---
SW following. Discussed with RN, pt needing oxygen at discharge 2L with rest, 4L with exertion. KENDRICK met with pt to discuss - pt had multiple questions about home oxygen that were outside SW knowledge regarding home set up and how long tanks last for. KENDRICK asked if pt wanted to speak to someone from an oxygen company - pt agreeable, KENDRICK asked if [employer] would be okay as they are very responsive and will be able to get out soon to meet with pt, pt agreeable. KENDRICK notified Stacy with [employer] - she will meet with pt to discuss. RN notified. KENDRICK will continue to follow. Addendum: 09/06/20 at 1555 by HELLEN MARKS KENDRICK met with pt, he is agreeable to referral to [facility], however appears concerned about being "locked into a contract" and wanting to know if KENDRICK gets commission from this and wants to use whoever SW gets a "kick back" from. KENDRICK explained there is no gain whatsoever for KENDRICK to use any company. KENDRICK explained pt is needing oxygen and SW is trying to get it arranged so pt has what he needs when he discharges home. Pt does not want SW to put the address he lives at in the computer because "I had people after me, and I don't want them to know where I live." Pt gave permission for KENDRICK to call Stacy ([facility]) and give her the address over the phone. KENDRICK explained that KENDRICK was not responsible for what [facility] does with their information. KENDRICK faxed clinicals to [facility] - script is the only thing which needs to be faxed, and a tank given. Pt added to the weekend discharge list. RN notified.
[2020-09-06 15:00] VITALS: BP 115/85
[2020-09-06 19:15] VITALS: BP 163/91
[2020-09-06] MEDS: LACTOBACILLUS RHAMNOSUS GG 1 CAPSULE. PO SCH (20:56)
[2020-09-06] MEDS: hydrALAZINE 20 MG/ML VIAL. IVP PRN (22:54)
[2020-09-06 23:17] VITALS: BP 136/101
[2020-09-07 03:07] VITALS: BP 161/100
[2020-09-07] MEDS: IPRATRPIUM/ALBUTEROL 0.5/2.5MG 3 ML NEBU. NEB SCH ×3 (05:57→20:00)
[2020-09-07] MEDS: BUDESONIDE 0.5 MG/2 ML NEBU. NEB SCH (05:57)
[2020-09-07] MEDS: HEPARIN for SUB-Q USE 5,000 UNIT/ML VIAL. SQ SCH ×3 (06:00→22:00)
--- NOTE | 2020-09-07 06:02 | NUR ---
PT TOOK O2 OFF TO GO TO THE BATHROOM. ATTEMPTED TO [facility] SPO2 WHILE PT WAS ON RA, PT BECAME AGITATED AND ANGRY SHOUTING AND WAVING HANDS. I MANAGED TO GET HIM TO DO A MINIMAL ASSESSMENT AND THE BREATHING TREATMENT. PT CONTINUED TO BE VERBALLY ABUSIVE, NAME CALLING AND SHOUTING WHILE DOING THE BREATHING TREATMENT.
[2020-09-07 07:00] VITALS: BP 165/108
--- NOTE | 2020-09-07 07:22 | PDOC ---
PULMONARY PROGRESS NOTES DATE: 09/07/20 TIME: 07:20 Subjective sob better has cough on o2 3lpm Vitals Vital Signs Date Time Temp Pulse Resp B/P (MAP) Pulse Ox O2 Delivery O2 Flow Rate FiO2 09/07/20 05:59 92 Room Air 09/07/20 03:07 98.3 90 18 161/100 (120) 2.0 98.3 ROS: No Nausea, No Chest Pain, No Abdominal Pain, No Increase Cough General: Alert, No acute distress Lungs: Other (b lat diminished bs) Cardiovascular: S1 Abdomen: Soft Neuro Exam: Alert Extremities: No Edema Skin: Warm Medications Active Scripts Medications Dose Route/Sig Max Daily Dose Days Date Category Prednisone 20 Mg Tablet 40 Mg PO DAILY 7 07/11/20 Rx Calcium Carbonate 200 Mg Tab.chew 500 Mg PO PRN Q3HRS PRN 14 07/11/20 Rx Acetaminophen 325 Mg Tablet 650 Mg PO PRN Q6HRS PRN 30 07/11/20 Rx Amlodipine Besylate 5 Mg Tablet 5 Mg PO DAILY 30 07/11/20 Rx Aspirin 81 Mg Tab.chew 1 Tab PO DAILY 07/10/20 Reported Guaifenesin-Pse ER 600-60 mg (Guaifenesin/Pseudoephedrne HCl) 1 Each Tab.er.12h 1 Each PO BID 07/10/20 Reported Proventil Hfa (Albuterol Sulfate) 6.7 Gm Hfa.aer.ad 2 Puff INH PRN Q6HRS PRN 09/11/19 Reported Dyazide 37.5-25 Capsule (Triamterene/Hydrochlorothiazid) 1 Each Capsule 1 Cap PO DAILY 09/11/19 Reported Impression . IMPRESSION: 1. Acute hypoxic respiratory failure secondary to acute exacerbation of chronic obstructive pulmonary disease and acute bronchitis.--improving 2. Abnormal chest x-ray with hyperinflated lungs consistent with chronic obstructive pulmonary disease, but no definite consolidation. 3. Persistent bronchospasm. Dyspnea worsens with exertion due to bronchospasm. 4. smoker Plan . Updated 09/07/20 Continue supplemental oxygen to keep sats above 90 % 6 min walk prior to DC advised to quit smoking for ever Continue DuoNeb and ICS, nebulizer, Pulmicort. for home symbicort 160 2 p bid rinse mouth after use albuterol prn Continue oral prednisone at 40mg, slow taper Continue empiric antibiotics azithromycin PFTs as an outpatient DVT/GI PPX Discussed with RN, pt ROCKY PRUITT MD Sep 07, 2020 07:22
--- NOTE | 2020-09-07 07:50 | PDOC ---
[facility] PROGRESS NOTE Date of Service DOS: DATE: 09/07/20 TIME: 07:45 Chief Complaint Chief Complaint Patient is 74-year-old -Mongolian male presenting for COPD exacerbation. COPD exacerbation, acute hypoxic respiratory failure, tobacco abuse -Patient with frequent admissions for COPD exacerbations -Was given breathing treatments and Solu-Medrol in the emergency room, with improvement in symptoms -continue Prednisone -No indication for ABX at this point -Willy scheduled -Educated patient on the importance of outpatient follow-up and medication compliance Alcohol abuse, drug abuse -We will discuss with patient if he desires treatment in this regard. History of Present Illness History of Present Illness Patient is a 74 year old male presenting for worsening shortness of breath likely secondary to a COPD exacerbation. He is frequently seen at this facility for very similar complaints; is noted to be very noncompliant as an outpatient with medications and follow-ups. Very poor historian overall. Patient reports around 2 days ago his shortness of breath cough started worsening. He says his cough has been productive of greenish phlegm. He tried Mucinex for the cough however that "dried him out too much". He does have a home albuterol rescue inhaler and has been taking it with some symptom relief for short periods of time. Patient is an active smoker and admits he has been for several decades, he also does admit to drug use but would not provide me with any specifics. He also does report drinking alcohol up pretty frequently. 09/04/20: Patient seen and examined stil c/o SOB and weakness but somewhat improved Otherwise no complaints Eating, drinking normally Plan discussed with bedside RN. 09/05/2020: Afebrile, currently breathing on 3 L nasal cannula. Complains of some intermittent shortness of breath with exertion. Some improvement with sputum production. We will continue treatment with prednisone, azithromycin, and breathing treatments as necessary. 09/06/2020: Afebrile, currently breathing on 2 L nasal cannula. States he feels better today, feels breathing treatments are really helping. He is complaining of productive cough that we are treating with Mucinex. Still some slight wheezing on exam, but improved from yesterday. We will continue current treatment and anticipate discharge tomorrow if he continues to improve. 09/07/2020: Intermittently breathing on room air and 2 L nasal cannula, afebrile. Patient has some concerns about pushing himself too hard, and prefers to transfer for 6-minute walk. Plan to discharge patient home on azithromycin, prednisone taper, and home oxygen likely tomorrow. Vitals/I&O Vitals/I&O: Vital Signs Date Time Temp Pulse Resp B/P (MAP) Pulse Ox O2 Delivery O2 Flow Rate FiO2 09/07/20 07:28 Nasal Cannula 2.0 09/07/20 05:59 92 09/07/20 03:07 98.3 90 18 161/100 (120) 98.3 I & O 09/06/20 09/06/20 09/07/20 15:00 23:00 07:00 Intake Total 420 ml 600 ml 300 ml Balance 420 ml 600 ml 300 ml Physical Exam General: Alert, Oriented X3, Cooperative, No acute distress Heart: Regular rate Lungs: Wheezing (faint ) Abdomen: Soft, No tenderness Extremities: No clubbing, No cyanosis Skin: No rashes, No breakdown Assessment and Plan Assessmemt and Plan Problems Medical Problems: (1) Acute respiratory distress Status: Acute (2) Hypoxia Status: Acute Comment Review of Relevant I have reviewed the following items cele (where applicable) has been applied. Medications: Current Medications Medications (Trade) Dose Ordered Sig/Annalise Route PRN Reason Start Time Stop Time Status Last Admin Dose Admin Lactobacillus Rhamnosus (Culturelle) 1 cap BID PO 09/06/20 21:00 09/06/20 20:56 Hydralazine HCl (Apresoline Inj) 10 mg PRN Q4HRS PRN IVP ELEVATED BP, SEE COMMENTS 09/06/20 21:45 09/06/20 22:54 Justifications for Admission Other Justification Acute COPD, acute respiratory failure with hypoxia HARPAL VILLALPANDO MD Sep 07, 2020 07:50
--- NOTE | 2020-09-07 07:51 | PDOC3 ---
Discharge Summary Visit Information Date of Admission: Sep 03, 2020 Date of Discharge: Sep 08, 2020 Final Diagnosis Problems Medical Problems: (1) Acute respiratory distress Status: Acute (2) Hypoxia Status: Acute Brief Hospital Course Allergies Allergies Coded Allergies Type Severity Reaction Last Updated Verified No Known Drug Allergies 09/12/19 No Vital Signs Vital Signs Date Time Temp Pulse Resp B/P (MAP) Pulse Ox O2 Delivery O2 Flow Rate FiO2 09/07/20 07:28 Nasal Cannula 2.0 09/07/20 05:59 92 09/07/20 03:07 98.3 90 18 161/100 (120) 98.3 Brief Hospital Course Mr. Ernandez is a 74 old male who presented with COPD exacerbation. Consultation was placed to pulmonology. Patient was treated with steroids, azithromycin, duo nebulizers, and supportive care. After gradual improvement he was stable to discharge home with home oxygen to finish his antibiotic regimen with steroid taper. Discharge Information Condition at Discharge: Improved Disposition/Orders: D/C to Home Scheduled Amlodipine Besylate (Amlodipine Besylate) 5 Mg Tablet, 5 MG PO DAILY for BLOOD PRESSURE for 30 Days, #30 Prescribed by: LU KEARNS MD on 07/11/201343 Last Action: Continued on 09/08/201030 by HARPAL VILLALPANDO MD Aspirin (Aspirin) 81 Mg Tab.chew, 1 TAB PO DAILY for heart health, #30 Ref 3 (Reported) Entered as Reported by: DEEPA LOPEZ on 07/10/20854 Last Action: Continued on 09/08/201030 by HARPAL VILLALPANDO MD Guaifenesin/Pseudoephedrne HCl (Guaifenesin-Pse ER 600-60 mg) 1 Each Tab.er.12h, 1 EACH PO BID for congestion, (Reported) Entered as Reported by: DEEPA LOPEZ on 07/10/20854 Last Action: HELD on 09/08/201030 by HARPAL VILLALPANDO MD Prednisone (Prednisone) 20 Mg Tablet, 40 MG PO DAILY for COPD for 7 Days, #14 Prescribed by: LU KEARNS MD on 07/11/201343 Last Action: HELD on 09/08/201030 by HARPAL VILLALPANDO MD Triamterene/Hydrochlorothiazid (Dyazide 37.5-25 Capsule) 1 Each Capsule, 1 CAP PO DAILY for BP CONTROL, (Reported) Entered as Reported by: ANTHONY GONZALEZ on 09/11/191701 Last Action: Converted on 09/08/201030 by HARPAL VILLALPANDO MD Scheduled PRN Acetaminophen (Acetaminophen) 325 Mg Tablet, 650 MG PO PRN Q6HRS PRN for Headaches, Temp > 101.5F for 30 Days, #60 Prescribed by: LU KEARNS MD on 07/11/201343 Last Action: HELD on 09/08/201030 by HARPAL VILLALPANDO MD Albuterol Sulfate (Proventil Hfa) 6.7 Gm Hfa.aer.ad, 2 PUFF INH PRN Q6HRS PRN for SHORTNESS OF BREATH, (Reported) Entered as Reported by: ANTHONY GONZALEZ on 09/11/191701 Calcium Carbonate (Calcium Carbonate) 200 Mg Tab.chew, 500 MG PO PRN Q3HRS PRN for UPSET STOMACH for 14 Days, #30 Prescribed by: LU KEARNS MD on 07/11/201343 Last Action: Continued on 09/08/201030 by HARPAL VILLALPANDO MD Justicifation of Admission Dx: Justifications for Admission: Justification of Admission Dx: HARPAL Chávez MD Sep 07, 2020 07:51
[2020-09-07] MEDS ORDERED: AZIT250T6 PO (07:59)
[2020-09-07] MEDS ORDERED: PRED20TA PO (07:59)
[2020-09-07] MEDS: AZITHROMYCIN 250 MG TABLET. PO SCH (08:49)
[2020-09-07] MEDS: predniSONE 20 MG TABLET PO SCH (08:49)
[2020-09-07] MEDS: guaiFENesin DM 600/30MG 1 TAB TAB.ER.12H PO SCH ×2 (08:49→20:38)
[2020-09-07] MEDS: LACTOBACILLUS RHAMNOSUS GG 1 CAPSULE. PO SCH ×2 (08:49→20:38)
[2020-09-07] MEDS: SENNOSIDES/DOCUSATE 8.6/50MG TABLET. PO SCH ×2 (08:51→20:39)
[2020-09-07 11:00] VITALS: BP 164/99
[2020-09-07 15:00] VITALS: BP 136/70
[2020-09-07 19:00] VITALS: BP 152/97
[2020-09-07 23:00] VITALS: BP 151/93
[2020-09-08 03:00] VITALS: BP 159/91
[2020-09-08] MEDS: HEPARIN for SUB-Q USE 5,000 UNIT/ML VIAL. SQ SCH ×2 (05:49→07:35)
[2020-09-08 07:00] VITALS: BP 192/113
--- NOTE | 2020-09-08 07:00 | PDOC ---
[employer] PROGRESS NOTE Date of Service DOS: DATE: 09/08/20 TIME: 06:57 Chief Complaint Chief Complaint Patient is 74-year-old -Maldivian male presenting for COPD exacerbation. COPD exacerbation, acute hypoxic respiratory failure, tobacco abuse -Patient with frequent admissions for COPD exacerbations -Was given breathing treatments and Solu-Medrol in the emergency room, with improvement in symptoms -continue Prednisone -No indication for ABX at this point -Willy scheduled -Educated patient on the importance of outpatient follow-up and medication compliance Alcohol abuse, drug abuse -We will discuss with patient if he desires treatment in this regard. History of Present Illness History of Present Illness Patient is a 74 year old male presenting for worsening shortness of breath likely secondary to a COPD exacerbation. He is frequently seen at this facility for very similar complaints; is noted to be very noncompliant as an outpatient with medications and follow-ups. Very poor historian overall. Patient reports around 2 days ago his shortness of breath cough started worsening. He says his cough has been productive of greenish phlegm. He tried Mucinex for the cough however that "dried him out too much". He does have a home albuterol rescue inhaler and has been taking it with some symptom relief for short periods of time. Patient is an active smoker and admits he has been for several decades, he also does admit to drug use but would not provide me with any specifics. He also does report drinking alcohol up pretty frequently. 09/04/20: Patient seen and examined stil c/o SOB and weakness but somewhat improved Otherwise no complaints Eating, drinking normally Plan discussed with bedside RN. 09/05/2020: Afebrile, currently breathing on 3 L nasal cannula. Complains of some intermittent shortness of breath with exertion. Some improvement with sputum production. We will continue treatment with prednisone, azithromycin, and breathing treatments as necessary. 09/06/2020: Afebrile, currently breathing on 2 L nasal cannula. States he feels better today, feels breathing treatments are really helping. He is complaining of productive cough that we are treating with Mucinex. Still some slight wheezing on exam, but improved from yesterday. We will continue current treatment and anticipate discharge tomorrow if he continues to improve. 09/07/2020: Intermittently breathing on room air and 2 L nasal cannula, afebrile. Patient has some concerns about pushing himself too hard, and prefers to transfer for 6-minute walk. Plan to discharge patient home on azithromycin, prednisone taper, and home oxygen likely tomorrow. 09/08/2020: Patient still breathing on 2 L nasal cannula. Dyspnea improving. Plan for a 6-minute walk today. States he feels 50% better than he was on admission. Will perform 6-minute walk and discharge home today with oxygen, azithromycin, and steroid taper. Vitals/I&O Vitals/I&O: Vital Signs Date Time Temp Pulse Resp B/P (MAP) Pulse Ox O2 Delivery O2 Flow Rate FiO2 09/08/20 03:00 97.7 57 18 159/91 (113) 96 Nasal Cannula 2.0 97.7 I & O 09/07/20 09/07/20 09/08/20 15:00 23:00 07:00 Intake Total 120 ml 290 ml 120 ml Balance 120 ml 290 ml 120 ml Physical Exam General: Alert, Oriented X3, Cooperative, No acute distress Heart: Regular rate Lungs: Other (b lat diminished bs) Abdomen: Soft, No tenderness Extremities: No clubbing, No cyanosis Skin: No rashes, No breakdown Assessment and Plan Assessmemt and Plan Problems Medical Problems: (1) Acute respiratory distress Status: Acute (2) Hypoxia Status: Acute Comment Review of Relevant I have reviewed the following items cele (where applicable) has been applied. Justifications for Admission Other Justification Acute COPD, acute respiratory failure with hypoxia HARPAL VILLALPANDO MD Sep 08, 2020 07:00
[2020-09-08] MEDS: IPRATRPIUM/ALBUTEROL 0.5/2.5MG 3 ML NEBU. NEB SCH ×2 (07:24→11:18)
[2020-09-08] MEDS: BUDESONIDE 0.5 MG/2 ML NEBU. NEB SCH (07:24)
[2020-09-08] MEDS: SENNOSIDES/DOCUSATE 8.6/50MG TABLET. PO SCH (07:35)
--- NOTE | 2020-09-08 07:58 | PDOC ---
PULMONARY PROGRESS NOTES DATE: 09/08/20 TIME: 07:57 Subjective sob better has cough better on o2 3lpm Vitals Vital Signs Date Time Temp Pulse Resp B/P (MAP) Pulse Ox O2 Delivery O2 Flow Rate FiO2 09/08/20 07:24 96 Nasal Cannula 2.0 09/08/20 07:00 97.8 86 18 192/113 (139) 97.8 ROS: No Nausea, No Chest Pain, No Abdominal Pain, No Increase Cough General: Alert, No acute distress Lungs: Other (b lat diminished bs) Cardiovascular: S1 Abdomen: Soft Neuro Exam: Alert Extremities: No Edema Skin: Warm Medications Active Scripts Medications Dose Route/Sig Max Daily Dose Days Date Category Prednisone 20 Mg Tablet 40 Mg PO DAILY 7 07/11/20 Rx Calcium Carbonate 200 Mg Tab.chew 500 Mg PO PRN Q3HRS PRN 14 07/11/20 Rx Acetaminophen 325 Mg Tablet 650 Mg PO PRN Q6HRS PRN 30 07/11/20 Rx Amlodipine Besylate 5 Mg Tablet 5 Mg PO DAILY 30 07/11/20 Rx Aspirin 81 Mg Tab.chew 1 Tab PO DAILY 07/10/20 Reported Guaifenesin-Pse ER 600-60 mg (Guaifenesin/Pseudoephedrne HCl) 1 Each Tab.er.12h 1 Each PO BID 07/10/20 Reported Proventil Hfa (Albuterol Sulfate) 6.7 Gm Hfa.aer.ad 2 Puff INH PRN Q6HRS PRN 09/11/19 Reported Dyazide 37.5-25 Capsule (Triamterene/Hydrochlorothiazid) 1 Each Capsule 1 Cap PO DAILY 09/11/19 Reported Impression . IMPRESSION: 1. Acute hypoxic respiratory failure secondary to acute exacerbation of chronic obstructive pulmonary disease and acute bronchitis.--improving 2. Abnormal chest x-ray with hyperinflated lungs consistent with chronic obstructive pulmonary disease, but no definite consolidation. 3. Persistent bronchospasm. Dyspnea worsens with exertion due to bronchospasm. improving 4. smoker Plan . Updated 09/08/20 Continue supplemental oxygen to keep sats above 90% 6 min walk at [place] advised to quit smoking for ever Continue DuoNeb and ICS, nebulizer, Pulmicort. for home symbicort 160 2 p bid rinse mouth after use albuterol prn Continue oral prednisone at 40mg, slow taper Continue empiric antibiotics azithromycin total of 5 days PFTs as an outpatient DVT/GI PPX Discussed with RN, pt ROCKY PRUITT MD Sep 08, 2020 07:58
[2020-09-08] MEDS: predniSONE 20 MG TABLET PO SCH (08:14)
[2020-09-08] MEDS: AZITHROMYCIN 250 MG TABLET. PO SCH (08:14)
[2020-09-08] MEDS: LACTOBACILLUS RHAMNOSUS GG 1 CAPSULE. PO SCH (08:14)
[2020-09-08] MEDS: guaiFENesin DM 600/30MG 1 TAB TAB.ER.12H PO SCH (08:14)
[2020-09-08] MEDS: hydrALAZINE 20 MG/ML VIAL. IVP PRN (08:15)
[2020-09-08] MEDS ORDERED: CALCIUM CARBONATE 500 MG TAB.CHEW PO PRN (10:30)
[2020-09-08 11:00] VITALS: BP 167/92
[2020-09-08] MEDS ORDERED: ASPIRIN CHEWABLE 81 MG TABLET. PO SCH (11:30)
[2020-09-08] MEDS ORDERED: TRIAMTERENE/HCTZ 37.5/25MG TABLET. PO SCH (11:30)
--- NOTE | 2020-09-08 14:05 | NUR ---
Discharge Note: ANTON LYNN AUSTIN Discharge instructions and discharge home medications reviewed with Patient and spouse and a copy given. All questions have been answered and understanding verbalized. The following instructions and handouts were given: information about home oxygen usage, medications, follow up appointments, COPD. Discontinued lines and drains: IV line in left AC removed, catheter tip intact. Patient discharged to home with self care with spouse, wheelchair used for mobility to discharge vehicle.
[2021-01-02] MEDS ORDERED: METH4TAB2 PO (11:09)
[2021-01-02] MEDS ORDERED: DOXY100T PO (11:09)
== END 2020-09-08 14:05 | disposition home or self-care (01) | DRG 189 ==
LOC: ER 09:49 → 4 NORTH 11:08
PROVIDERS: ADMIT Student in an Organized Health Care Education/Training Program; ATTEND Student in an Organized Health Care Education/Training Program
DX: J96.01 Acute respiratory failure with hypoxia (principal); J44.1 Chronic obstructive pulmonary disease with (acute) exacerbation; J44.0 Chronic obstructive pulmonary disease with (acute) lower respiratory infection; J20.9 Acute bronchitis, unspecified; F17.200 Nicotine dependence, unspecified, uncomplicated; E78.00 Pure hypercholesterolemia, unspecified; I10 Essential (primary) hypertension; J98.4 Other disorders of lung; F10.10 Alcohol abuse, uncomplicated; Z79.899 Other long term (current) drug therapy; Z79.82 Long term (current) use of aspirin
CPT/HCPCS: 36415; 71045; 80048; 84484; 85025; 93005; 94618; 94640; 94760; 96374; 99406; J0360; J2930; J7512; 99285-25; G0378; J7626

== ENCOUNTER 2020-10-30 21:23 | Inpatient (IN) | payer MEDICARE, MEDICAID ==
[~2020-10-30] VITALS: Ht 200.7 cm; Wt 97.5 kg
[~2020-10-30 21:23] MED LIST changes: +AZIT250T6 PO
[2020-10-30] MEDS ORDERED: methylPREDNISolone SOD SUCC PF 125 MG/2 ML VIAL. IV ONE (21:45)
[2020-10-30] MEDS ORDERED: IPRATRPIUM/ALBUTEROL 0.5/2.5MG 3 ML NEBU. NEB ONE (21:45)
--- NOTE | 2020-10-30 22:18 | PHYS DOC ---
Past Medical History Past Medical History: COPD, High Cholesterol, Hypertension Past Surgical History: Other Additional Past Surgical Histo: inguinal hernia repair 09/12/19 Smoking Status: Former Smoker Alcohol Use: Occasionally Drug Use: Cocaine, Marijuana, Methamphetamine Social History Narrative: PT STATES HE HASN'T USED DRUNG IN MONTHS General Adult EDM: Chief Complaint: SHORTNESS OF BREATH HPI: HPI: Patient is a 75 year old male who present to ER for evaluation of cough and trouble breathing. Symptoms have been going on for 1 week. Patient has history of COPD, he is on 2 L oxygen at home. Patient denies any chest pain, no abdominal pain, no nausea or vomiting. Patient said he was vaccinated for COVID-19 already. Upon arrival to room, his oxygen saturation was in the 80%. Review of Systems: Review of Systems: Constitutional: Denies fever or chills. [] Eyes: Denies change in visual acuity. [] HENT: Denies nasal congestion or sore throat. [] Respiratory: Positive for cough and trouble breathing. Cardiovascular: Denies chest pain or edema. [] GI: Denies abdominal pain, nausea, vomiting, bloody stools or diarrhea. [] : Denies dysuria. [] Musculoskeletal: Denies back pain or joint pain. [] Integument: Denies rash. [] Neurologic: Denies headache, focal weakness or sensory changes. [] Endocrine: Denies polyuria or polydipsia. [] Lymphatic: Denies swollen glands. [] Psychiatric: Denies depression or anxiety. [] Heart Score: C/O Chest Pain: N/A Risk Factors: Risk Factors: DM, Current or recent (<one month) smoker, HTN, HLP, family history of CAD, obesity. Risk Scores: Score 0 - 3: 2.5% MACE over next 6 weeks - Discharge Home Score 4 - 6: 20.3% MACE over next 6 weeks - Admit for Clinical Observation Score 7 - 10: 72.7% MACE over next 6 weeks - Early Invasive Strategies Current Medications: Current Medications Medications (Trade) Dose Ordered Sig/Annalise Start Time Stop Time Status Last Admin Dose Admin Albuterol/ Ipratropium (Duoneb) 3 ml 1X ONCE 10/30/20 21:45 10/30/20 21:46 DC 10/30/20 21:45 3 ML Methylprednisolone Sodium Succinate (SOLU-Medrol 125MG VIAL) 125 mg 1X ONCE 10/30/20 21:45 10/30/20 21:46 DC 10/30/20 21:48 125 MG Allergies: Allergies: Allergies Coded Allergies Type Severity Reaction Last Updated Verified No Known Drug Allergies 09/12/19 No Physical Exam: PE: Constitutional: Well developed, well nourished, no acute distress, non-toxic appearance. [] HENT: Normocephalic, atraumatic, bilateral external ears normal, oropharynx moist, no oral exudates, nose normal. [] Eyes: PERRLA, EOMI, conjunctiva normal, no discharge. [] Neck: Normal range of motion, no tenderness, supple, no stridor. [] Cardiovascular:Heart rate regular rhythm, no murmur [] Lungs & Thorax: Bilateral breath sounds with wheezing diffusely to auscultation. Abdomen: Bowel sounds normal, soft, no tenderness, no masses, no pulsatile masses. [] Skin: Warm, dry, no erythema, no rash. [] Back: No tenderness, no CVA tenderness. [] Extremities: No tenderness, no cyanosis, no clubbing, ROM intact, no edema. [] Neurologic: Alert and oriented X 3, normal motor function, normal sensory function, no focal deficits noted. [] Psychologic: Affect normal, judgement normal, mood normal. [] Current Patient Data: Vital Signs: Vital Signs Date Time Temp Pulse Resp B/P (MAP) Pulse Ox O2 Delivery O2 Flow Rate FiO2 10/30/20 21:51 97.9 96 24 162/110 (117) 97 Room Air 2.0 97.9 EKG: EKG: EKG was done at 2207, heart rate of 86 bpm, sinus rhythm, no ST segment elevation. [] Radiology/Procedures: Radiology/Procedures: [][facility] [address] [place], [place] [id number] IMAGING REPORT Signed PATIENT: AJIT LYNN ACCOUNT: [id number] : 1945 LOCATION: ER AGE: 75 SEX: M EXAM STATUS: REG ER ORD. PHYSICIAN: REYES MCFARLAND DO REASON: COUGH, SOA PROCEDURE: CHEST AP ONLY EXAMINATION: Chest radiograph. VIEWS: Single view COMPARISON: 09/03/2020 INDICATION:75 years, Male, cough. FINDINGS: Normal cardiomediastinal silhouette. Hyperinflated lungs with increased upper lungs lucency, most consistent with emphysematous changes. Bibasilar patchy airspace opacities, new since prior exam. No pleural effusion or pneumothorax. No acute osseous process. IMPRESSION: Patchy bibasilar airspace opacities, new since prior exam. Differential includes atelectatic changes, aspiration or pneumonia Electronically signed by: Trista Caba MD (10/30/2020 10:55 PM) [facility] DICTATED and SIGNED BY: TRISTA CABA MD DATE: 10/30/20 [id number] 0 Course & Med Decision Making: Course & Med Decision Making Pertinent Labs and Imaging studies reviewed. (See chart for details) Patient is a 75-year-old male who present to ER due to trouble breathing and cough for a week. Chest x-ray show infiltration consistent with pneumonia. Patient is hypoxic so, he was wheezing on examination. Patient will be admitted to hospital for pneumonia, COPD exacerbation, person under investigation for COVID-19 infection. Dragon Disclaimer: [employer] Disclaimer: This electronic medical record was generated, in whole or in part, using a voice recognition dictation system. Departure Departure Impression: Primary Impression: Pneumonia Additional Impressions: COPD with exacerbation Person under investigation for COVID-19 Disposition: ADMITTED INPATIENT Admitting Physician: PAPI () Condition: STABLE Referrals: AJIT CARTER MD (PCP) REYES MCFARLAND DO Oct 30, 2020 22:18
[2020-10-30 22:43] LABS: BASO # 0.1 x10^3/uL (0.0-0.2); BASO % 1 % (0-3); EOS # 0.7 x10^3/uL (0.0-0.7); EOS % 7 % (0-3); HEMATOCRIT 45.1 % (39.0-53.0); HEMOGLOBIN 15.4 g/dL (13.0-17.5); LYMPH % 44 % (24-48); MEAN CORPUSCULAR HEMOGLOBIN 30 pg (25-35); MEAN CORPUSCULAR HGB CONC 34 g/dL (31-37); MEAN CORPUSCULAR VOLUME 88 fL (79-100); MONO # 0.8 x10^3/uL (0.0-1.1); MONO % 9 % (0-9); NEUT # 3.5 x10^3/uL (1.8-7.7); NEUT % 39 % (31-73); PLATELET COUNT 238 x10^3/uL (140-400); RED BLOOD COUNT 5.15 x10^6/uL (4.30-5.70); RED CELL DISTRIBUTION WIDTH 14.1 % (11.5-14.5); WHITE BLOOD COUNT 9.1 x10^3/uL (4.0-11.0)
[2020-10-30 22:53] LABS: CALCIUM 9.6 mg/dL (8.5-10.1); GFR 87.7
--- NOTE | 2020-10-30 22:57 | RAD ---
EXAMINATION: Chest radiograph. VIEWS: Single view COMPARISON: 09/03/2020 INDICATION:75 years, Male, cough. FINDINGS: Normal cardiomediastinal silhouette. Hyperinflated lungs with increased upper lungs lucency, most con sistent with emphysematous changes. Bibasilar patchy airspace opacities, new since prior exam. No ple ural effusion or pneumothorax. No acute osseous process. IMPRESSION: Patchy bibasilar airspace opacities, new since prior exam. Differential includes atelectatic changes, aspiration or pneumonia Electronically signed by: Rock Caba MD (10/30/2020 10:55 PM) [facility]
[2020-10-30 23:07] LABS: ALBUMIN 3.5 g/dL (3.4-5.0); ALBUMIN/GLOBULIN RATIO 0.9 (1.0-1.7); MAGNESIUM 2.2 mg/dL (1.8-2.4); TOTAL BILIRUBIN 0.3 mg/dL (0.2-1.0); TOTAL PROTEIN 7.6 g/dL (6.4-8.2)
[2020-10-30] MEDS ORDERED: cefTRIAXone IV Push 1 GM VIAL. IVP ONE (23:15)
[2020-10-30] MEDS ORDERED: AZITHRMYCN 500MG IVPB FOR OMNI 250 ML IV ONE (23:15)
[2020-10-31] VITALS (7 sets, daily range): BP systolic 135–163; BP diastolic 82–98
[2020-10-31] MEDS ORDERED: ONDANSETRON PF 4 MG/2 ML VIAL. IVP PRN
[2020-10-31] MEDS: IV NORMAL SALINE 1000ML BAG 1,000 ML IV SCH ×2 (02:33→13:20)
[2020-10-31] MEDS: IPRATRPIUM/ALBUTEROL 0.5/2.5MG 3 ML NEBU. NEB SCH ×5 (07:07→19:40)
--- NOTE | 2020-10-31 09:46 | PDOC1 ---
History and Physical Date of Admission Date of Admission DATE: 10/31/20 TIME: 09:44 Identification/Chief Complaint Chief Complaint SOA, COUGH History of Present Illness History of Present Illness 75-year-old -Vietnamese male presented to ER for COPD exacerbation. ACUTE COPD exacerbation, acute hypoxic respiratory failure, tobacco abuse frequent admissions for COPD exacerbations ymptoms have been going on for 1 week. Patient has history of COPD, he is on 2 L oxygen at home. denies any chest pain, / abdominal pain, no nausea or vomiting. was vaccinated for COVID- 19 already. Upon arrival to er his oxygen saturation was in the 80% Willy s cheduled Educated patient on the importance of outpatient follow-up and medication compliance hx Alcohol abuse, drug abuse Past Medical History Past Medical History Past Medical History Past Medical History: COPD, High Cholesterol, Hypertension Past Surgical History: Other Additional Past Surgical Histo: inguinal hernia repair 09/12/19 Smoking Status: Former Smoker Alcohol Use: Occasionally Drug Use: Cocaine, Marijuana, Methamphetamine Social History Narrative: PT STATES HE HASN'T USED DRUGS IN MONTHS FHX HTN Cardiovascular: HTN, Hyperlipidemia Past Surgical History Past Surgical History: Hernia Repair Family History Family History: Hypertension Social History Smoke: Quit ALCOHOL: rare Drugs: Marijuana Current Problem List Problem List Problems Medical Problems: (1) COPD with exacerbation Status: Acute (2) Person under investigation for COVID-19 Status: Acute (3) Pneumonia Status: Acute Current Medications Current Medications Current Medications Albuterol/ Ipratropium (Duoneb) 3 ml 1X ONCE NEB Last administered on 10/30/20at 21:45; Start 10/30/20 at 21:45; Stop 10/30/20 at 21:46; Status DC Methylprednisolone Sodium Succinate (SOLU-Medrol 125MG VIAL) 125 mg 1X ONCE IV Last administered on 10/30/20at 21:48; Start 10/30/20 at 21:45; Stop 10/30/20 at 21:46; Status DC Ceftriaxone Sodium (Rocephin) 1 gm 1X ONCE IVP Last administered on 10/30/20at 23:37; Start 10/30/20 at 23:15; Stop 10/30/20 at 23:16; Status DC Azithromycin 250 ml @ 250 mls/hr 1X ONCE IV Last administered on 10/30/20at 23:37; Start 10/30/20 at 23:15; Stop 10/31/20 at 00:14; Status DC Ondansetron HCl (Zofran) 4 mg PRN Q8HRS PRN IVP NAUSEA/VOMITING; Start 10/31/20 at 00:00; Stop 10/31/20 at 23:59 Sodium Chloride 1,000 ml @ 75 mls/hr [id number] IV Last administered on 10/31/20at 02:33; Start 10/31/20 at 00:00; Stop 10/31/20 at 23:59 Albuterol/ Ipratropium (Duoneb) 3 ml RTQID NEB ; Start 10/31/20 at 08:00; Stop 11/01/20 at 07:59 Active Scripts Active Calcium Carbonate 200 Mg Tab.chew 500 Mg PO PRN Q3HRS PRN 14 Days Acetaminophen 325 Mg Tablet 650 Mg PO PRN Q6HRS PRN 30 Days Amlodipine Besylate 5 Mg Tablet 5 Mg PO DAILY 30 Days Reported Aspirin 81 Mg Tab.chew 1 Tab PO DAILY Proventil Hfa (Albuterol Sulfate) 6.7 Gm Hfa.aer.ad 2 Puff INH PRN Q6HRS PRN Dyazide 37.5-25 Capsule (Triamterene/Hydrochlorothiazid) 1 Each Capsule 1 Cap PO DAILY Allergies Allergies: Coded Allergies: No Known Drug Allergies (Unverified , 09/12/19) ROS Review of System Constitutional: Denies fever or chills. [] Eyes: Denies change in visual acuity. [] HENT: Denies nasal congestion or sore throat. [] Respiratory: Positive for cough and trouble breathing. Cardiovascular: Denies chest pain or edema. [] GI: Denies abdominal pain, nausea, vomiting, bloody stools or diarrhea. [] : Denies dysuria. [] Musculoskeletal: Denies back pain or joint pain. [] Integument: Denies rash. [] Neurologic: Denies headache, focal weakness or sensory changes. [] Endocrine: Denies polyuria or polydipsia. [] Lymphatic: Denies swollen glands. [] Psychiatric: Denies depression or anxiety. [] 14 PT ROS OTHERWISE NEG Physical Exam Physical Exam Constitutional: Well developed, well nourished, no acute distress, non-toxic appearance. [] HENT: Normocephalic, atraumatic, bilateral external ears normal, oropharynx m oist, no oral exudates, nose normal. [] Eyes: PERRLA, EOMI, conjunctiva normal, no discharge. [] Neck: Normal range of motion, no tenderness, supple, no stridor. [] Cardiovascular:Heart rate regular rhythm, no murmur [] Lungs & Thorax: Bilateral breath sounds with wheezing diffusely to auscultati on. Abdomen: Bowel sounds normal, soft, no tenderness, no masses, no pulsatile masses. [] Skin: Warm, dry, no erythema, no rash. [] Back: No tenderness, no CVA tenderness. [] Extremities: No tenderness, no cyanosis, no clubbing, ROM intact, no edema. [] Neurologic: Alert and oriented X 3, normal motor function, normal sensory function, no focal deficits noted. [] Psychologic: Affect normal, judgement normal, General: Cooperative Abdomen: Soft Rectal Exam: not examined PELVIC: Examination not indicated Extremities: No cyanosis Neuro: Normal speech, Cranial nerves 3-12 NL Vitals Vitals Vital Signs Date Time Temp Pulse Resp B/P (MAP) Pulse Ox O2 Delivery O2 Flow Rate FiO2 10/31/20 07:00 97.7 96 141/92 (108) 94 Nasal Cannula 2.0 97.7 10/31/20 03:02 20 Labs Labs Laboratory Tests Test 10/30/20 22:30 10/30/20 23:50 White Blood Count 9.1 x10^3/uL (4.0-11.0) Red Blood Count 5.15 x10^6/uL (4.30-5.70) Hemoglobin 15.4 g/dL (13.0-17.5) Hematocrit 45.1 % (39.0-53.0) Mean Corpuscular Volume 88 fL (79-100) Mean Corpuscular Hemoglobin 30 pg (25-35) Mean Corpuscular Hemoglobin Concent 34 g/dL (31-37) Red Cell Distribution Width 14.1 % (11.5-14.5) Platelet Count 238 x10^3/uL (140-400) Neutrophils (%) (Auto) 39 % (31-73) Lymphocytes (%) (Auto) 44 % (24-48) Monocytes (%) (Auto) 9 % (0-9) Eosinophils (%) (Auto) 7 % (0-3) Basophils (%) (Auto) 1 % (0-3) Neutrophils # (Auto) 3.5 x10^3/uL (1.8-7.7) Lymphocytes # (Auto) 4.0 x10^3/uL (1.0-4.8) Monocytes # (Auto) 0.8 x10^3/uL (0.0-1.1) Eosinophils # (Auto) 0.7 x10^3/uL (0.0-0.7) Basophils # (Auto) 0.1 x10^3/uL (0.0-0.2) Sodium Level 140 mmol/L (136-145) Potassium Level 4.0 mmol/L (3.5-5.1) Chloride Level 100 mmol/L (98-107) Carbon Dioxide Level 32 mmol/L (21-32) Anion Gap 8 (6-14) Blood Urea Nitrogen 17 mg/dL (8-26) Creatinine 1.0 mg/dL (0.7-1.3) Estimated GFR (Cockcroft-Gault) 87.7 BUN/Creatinine Ratio 17 (6-20) Glucose Level 117 mg/dL (70-99) Lactic Acid Level 1.4 mmol/L (0.4-2.0) Calcium Level 9.6 mg/dL (8.5-10.1) Magnesium Level 2.2 mg/dL (1.8-2.4) Total Bilirubin 0.3 mg/dL (0.2-1.0) Aspartate Amino Transf (AST/SGOT) 20 U/L (15-37) Alanine Aminotransferase (ALT/SGPT) 28 U/L (16-63) Alkaline Phosphatase 80 U/L (46-116) Troponin I Quantitative < 0.017 ng/mL (0.000-0.055) TO-Tzx-V-Type Natriuretic Peptide 51 pg/mL (0-449) Total Protein 7.6 g/dL (6.4-8.2) Albumin 3.5 g/dL (3.4-5.0) Albumin/Globulin Ratio 0.9 (1.0-1.7) SARS-CoV-2 Antigen (Rapid) Negative (NEGATIVE) Laboratory Tests Test 10/30/20 22:30 10/30/20 23:50 White Blood Count 9.1 x10^3/uL (4.0-11.0) Red Blood Count 5.15 x10^6/uL (4.30-5.70) Hemoglobin 15.4 g/dL (13.0-17.5) Hematocrit 45.1 % (39.0-53.0) Mean Corpuscular Volume 88 fL (79-100) Mean Corpuscular Hemoglobin 30 pg (25-35) Mean Corpuscular Hemoglobin Concent 34 g/dL (31-37) Red Cell Distribution Width 14.1 % (11.5-14.5) Platelet Count 238 x10^3/uL (140-400) Neutrophils (%) (Auto) 39 % (31-73) Lymphocytes (%) (Auto) 44 % (24-48) Monocytes (%) (Auto) 9 % (0-9) Eosinophils (%) (Auto) 7 % (0-3) Basophils (%) (Auto) 1 % (0-3) Neutrophils # (Auto) 3.5 x10^3/uL (1.8-7.7) Lymphocytes # (Auto) 4.0 x10^3/uL (1.0-4.8) Monocytes # (Auto) 0.8 x10^3/uL (0.0-1.1) Eosinophils # (Auto) 0.7 x10^3/uL (0.0-0.7) Basophils # (Auto) 0.1 x10^3/uL (0.0-0.2) Sodium Level 140 mmol/L (136-145) Potassium Level 4.0 mmol/L (3.5-5.1) Chloride Level 100 mmol/L (98-107) Carbon Dioxide Level 32 mmol/L (21-32) Anion Gap 8 (6-14) Blood Urea Nitrogen 17 mg/dL (8-26) Creatinine 1.0 mg/dL (0.7-1.3) Estimated GFR (Cockcroft-Gault) 87.7 BUN/Creatinine Ratio 17 (6-20) Glucose Level 117 mg/dL (70-99) Lactic Acid Level 1.4 mmol/L (0.4-2.0) Calcium Level 9.6 mg/dL (8.5-10.1) Magnesium Level 2.2 mg/dL (1.8-2.4) Total Bilirubin 0.3 mg/dL (0.2-1.0) Aspartate Amino Transf (AST/SGOT) 20 U/L (15-37) Alanine Aminotransferase (ALT/SGPT) 28 U/L (16-63) Alkaline Phosphatase 80 U/L (46-116) Troponin I Quantitative < 0.017 ng/mL (0.000-0.055) IC-Xgv-F-Type Natriuretic Peptide 51 pg/mL (0-449) Total Protein 7.6 g/dL (6.4-8.2) Albumin 3.5 g/dL (3.4-5.0) Albumin/Globulin Ratio 0.9 (1.0-1.7) SARS-CoV-2 Antigen (Rapid) Negative (NEGATIVE) Images Images PATIENT: AJIT LYNN ACCOUNT: [id number] : 1945 LOCATION: ER AGE: 75 SEX: M EXAM STATUS: REG ER ORD. PHYSICIAN: REYES MCFARLAND DO REASON: COUGH, SOA PROCEDURE: CHEST AP ONLY EXAMINATION: Chest radiograph. VIEWS: Single view COMPARISON: 09/03/2020 INDICATION:75 years, Male, cough. FINDINGS: Normal cardiomediastinal silhouette. Hyperinflated lungs with increased upper lungs lucency, most consistent with emphysematous changes. Bibasilar patchy airspace opacities, new since prior exam. No pleural effusion or pneumothorax. No acute osseous process. IMPRESSION: Patchy bibasilar airspace opacities, new since prior exam. Differential includes atelectatic changes, aspiration or pneumonia Electronically signed by: Trista Caba MD (10/30/2020 10:55 PM) [facility] DICTATED and SIGNED BY: TRISTA CABA MD DATE: 10/30/20 [id number] 0 VTE Prophylaxis Ordered VTE Prophylaxis Devices: Yes VTE Pharmacological Prophylaxi: No Assessment/Plan Assessment/Plan Assessment/Plan 74-year-old -Vietnamese male presenting for COPD exacerbation. ACUTE COPD exacerbation, acute hypoxic respiratory failure, tobacco abuse -Patient with frequent admissions for COPD exacerbations -Was given breathing treatments and Solu-Medrol in the emergency room, with improvement in symptoms -We will start patient on oral prednisone burst -DuoNebs scheduled -Educated patient on the importance of outpatient follow-up and medication compliance Alcohol abuse, drug abuse discuss with patient if he desires treatment in this regard. ADMIT Continue supplemental oxygen to keep sats above 90% 6 min walk at [place] advised to quit smoking for ever Continue DuoNeb and ICS, nebulizer, Pulmicort. for home symbicort 160 2 p bid rinse mouth after use albuterol prn Continue empiric antibiotics azithromycin PFTs as an outpatient DVT/GI PPX Discussed with RN, pt 74 min pt exam, chart review, > 50% of time spent with exam, chart review, pt care coordination Justifications for Admission Other Justification Acute COPD, acute respiratory failure with hypoxia Justifications for Admission Other Justification Acute COPD, acute respiratory failure with hypoxia LU KEARNS MD Oct 31, 2020 09:46
--- NOTE | 2020-10-31 11:32 | NUR ---
SS following for discharge planning. SS reviewed pt chart and discussed with pt RN. Pt is from home and is currently requiring oxygen at two liters nasal canula. Pt has home oxygen. COVID19 negative. SS will continue to follow for discharge planning.
[2020-10-31] MEDS ORDERED: MAG HYDROX/ALUMINUM HYD/SIMETH 30 ML ORAL.SUSP PO PRN (14:15)
[2020-10-31] MEDS ORDERED: CALCIUM CARBONATE 500 MG TAB.CHEW PO PRN (14:15)
[2020-10-31] MEDS ORDERED: 0.9 % SODIUM CHLORIDE 10 ML DISP.SYRIN. IV PRN (14:15)
[2020-10-31] MEDS ORDERED: SODIUM PHOSPHATES 19/7GM 133 ML ENEMA. PR PRN (14:15)
[2020-10-31] MEDS ORDERED: AZITHRMYCN 500MG IVPB FOR OMNI 250 ML IV SCH (14:15)
[2020-10-31] MEDS ORDERED: ACETAMINOPHEN 325 MG TABLET. PO PRN (14:15)
[2020-10-31] MEDS ORDERED: guaiFENesin ORAL 200 MG/10 ML LIQUID. PO PRN (14:15)
[2020-10-31] MEDS ORDERED: DOCUSATE SODIUM 100 MG CAPSULE. PO PRN (14:15)
[2020-10-31] MEDS ORDERED: NON FORMULARY ITEM (Albuterol Sulfate (Proventil Hfa) 2 PUFF) INH PRN (14:15)
[2020-10-31] MEDS ORDERED: ONDANSETRON PF 4 MG/2 ML VIAL. IV PRN (14:15)
[2020-10-31] MEDS ORDERED: ALBUTEROL SULFATE 2.5 MG/3 ML NEBU. NEB PRN (14:30)
[2020-10-31] MEDS: ENOXAPARIN 40 MG/0.4 ML SYRINGE. SQ SCH (15:04)
[2020-10-31] MEDS: ASPIRIN CHEWABLE 81 MG TABLET. PO SCH (15:04)
[2020-10-31] MEDS: TRIAMTERENE/HCTZ 37.5/25MG TABLET. PO SCH (15:04)
[2020-10-31] MEDS: AZITHROMYCIN 500 MG in IV NORMAL SALINE 250ML 250 ML IV SCH (15:05)
[2020-10-31] MEDS ORDERED: ALBUTEROL SULFATE 8GM INHALER. INH PRN (15:30)
[2020-11-01] MEDS: IPRATRPIUM/ALBUTEROL 0.5/2.5MG 3 ML NEBU. NEB SCH ×6 (00:24→20:59)
[2020-11-01 03:00] VITALS: BP 148/74
[2020-11-01 07:00] VITALS: BP 135/71
[2020-11-01 07:30] LABS: BASO % 0 % (0-3); EOS # 0.3 x10^3/uL (0.0-0.7); EOS % 2 % (0-3); HEMATOCRIT 39.7 % (39.0-53.0); HEMOGLOBIN 13.4 g/dL (13.0-17.5); LYMPH # 2.8 x10^3/uL (1.0-4.8); LYMPH % 25 % (24-48); MEAN CORPUSCULAR HEMOGLOBIN 30 pg (25-35); MEAN CORPUSCULAR HGB CONC 34 g/dL (31-37); MEAN CORPUSCULAR VOLUME 88 fL (79-100); MONO # 0.9 x10^3/uL (0.0-1.1); MONO % 8 % (0-9); NEUT # 7.2 x10^3/uL (1.8-7.7); NEUT % 65 % (31-73); PLATELET COUNT 208 x10^3/uL (140-400); RED BLOOD COUNT 4.51 x10^6/uL (4.30-5.70); RED CELL DISTRIBUTION WIDTH 14.3 % (11.5-14.5); WHITE BLOOD COUNT 11.2 x10^3/uL (4.0-11.0)
[2020-11-01 07:41] LABS: CREATININE 1.2 mg/dL (0.7-1.3); POTASSIUM 4.4 mmol/L (3.5-5.1)
[2020-11-01] MEDS: TRIAMTERENE/HCTZ 37.5/25MG TABLET. PO SCH (09:52)
[2020-11-01] MEDS: ASPIRIN CHEWABLE 81 MG TABLET. PO SCH (09:53)
--- NOTE | 2020-11-01 10:48 | PDOC ---
PROGRESS NOTES Date of Service: DATE: 11/01/20 TIME: 10:47 Chief Complaint Chief Complaint VTE Prophylaxis Ordered VTE Prophylaxis Devices: Yes VTE Pharmacological Prophylaxi: No Assessment/Plan Assessment/Plan Assessment/Plan 74-year-old -Norwegian male presenting for COPD exacerbation. ACUTE COPD exacerbation, acute hypoxic respiratory failure, tobacco abuse -Patient with frequent admissions for COPD exacerbations -Was given breathing treatments and Solu-Medrol in the emergency room, with improvement in symptoms -We will start patient on oral prednisone burst -TresoNebs scheduled -Educated patient on the importance of outpatient follow-up and medication compliance Alcohol abuse, drug abuse discuss with patient if he desires treatment in this regard. ADMIT Continue supplemental oxygen to keep sats above 90% on 3 liters nc 6 min walk at [place] advised to quit smoking for ever Continue DuoNeb and ICS, nebulizer, Pulmicort. for home symbicort 160 2 p bid rinse mouth after use albuterol prn Continue empiric antibiotics azithromycin PFTs as an outpatient DVT/GI PPX Discussed with RN, pt 28 min pt exam, chart review, > 50% of time spent with exam, chart review, pt care coordination History of Present Illness History of Present Illness Identification/Chief Complaint Chief Complaint SOA, COUGH History of Present Illness History of Present Illness 75-year-old -Norwegian male presented to ER for COPD exacerbation. ACUTE COPD exacerbation, acute hypoxic respiratory failure, tobacco abuse frequent admissions for COPD exacerbations ymptoms have been going on for 1 week. Patient has history of COPD, he is on 2 L oxygen at home. denies any chest pain, / abdominal pain, no nausea or vomiting. was vaccinated for COVID- 19 already. Upon arrival to er his oxygen saturation was in the 80% DuoNebs scheduled Educated patient on the importance of outpatient follow-up and medication compliance hx Alcohol abuse, drug abuse Past Medical History Past Medical History Past Medical History Past Medical History: COPD, High Cholesterol, Hypertension Past Surgical History: Other Additional Past Surgical Histo: inguinal hernia repair 09/12/19 Smoking Status: Former Smoker Alcohol Use: Occasionally Drug Use: Cocaine, Marijuana, Methamphetamine Social History Narrative: PT STATES HE HASN'T USED DRUGS IN MONTHS FHX HTN Cardiovascular: HTN, Hyperlipidemia Past Surgical History Past Surgical History: Hernia Repair Family History Family History: Hypertension Social History Smoke: Quit ALCOHOL: rare Drugs: Marijuana Current Problem List Problem List Problems Medical Problems: (1) COPD with exacerbation Status: Acute (2) Person under investigation for COVID-19 Status: Acute (3) Pneumonia Status: Acute Current Medications Current Medications Current Medications Albuterol/ Ipratropium (Duoneb) 3 ml 1X ONCE NEB Last administered on 10/30/20at 21:45; Start 10/30/20 at 21:45; Stop 10/30/20 at 21:46; Status DC Methylprednisolone Sodium Succinate (SOLU-Medrol 125MG VIAL) 125 mg 1X ONCE IV Last administered on 10/30/20at 21:48; Start 10/30/20 at 21:45; Stop 10/30/20 at 21:46; Status DC Ceftriaxone Sodium (Rocephin) 1 gm 1X ONCE IVP Last administered on 10/30/20at 23:37; Start 10/30/20 at 23:15; Stop 10/30/20 at 23:16; Status DC Azithromycin 250 ml @ 250 mls/hr 1X ONCE IV Last administered on 10/30/20at 23:37; Start 10/30/20 at 23:15; Stop 10/31/20 at 00:14; Status DC Ondansetron HCl (Zofran) 4 mg PRN Q8HRS PRN IVP NAUSEA/VOMITING; Start 10/31/20 at 00:00; Stop 10/31/20 at 23:59 Sodium Chloride 1,000 ml @ 75 mls/hr [id number] IV Last administered on 10/31/20at 02:33; Start 10/31/20 at 00:00; Stop 10/31/20 at 23:59 Albuterol/ Ipratropium (Duoneb) 3 ml RTQID NEB ; Start 10/31/20 at 08:00; Stop 11/01/20 at 07:59 Active Scripts Active Calcium Carbonate 200 Mg Tab.chew 500 Mg PO PRN Q3HRS PRN 14 Days Acetaminophen 325 Mg Tablet 650 Mg PO PRN Q6HRS PRN 30 Days Amlodipine Besylate 5 Mg Tablet 5 Mg PO DAILY 30 Days Reported Aspirin 81 Mg Tab.chew 1 Tab PO DAILY Proventil Hfa (Albuterol Sulfate) 6.7 Gm Hfa.aer.ad 2 Puff INH PRN Q6HRS PRN Dyazide 37.5-25 Capsule (Triamterene/Hydrochlorothiazid) 1 Each Capsule 1 Cap PO DAILY Allergies Allergies: Coded Allergies: No Known Drug Allergies (Unverified , 09/12/19) ROS Review of System Constitutional: Denies fever or chills. [] Eyes: Denies change in visual acuity. [] HENT: Denies nasal congestion or sore throat. [] Respiratory: Positive for cough and trouble breathing. Cardiovascular: Denies chest pain or edema. [] GI: Denies abdominal pain, nausea, vomiting, bloody stools or diarrhea. [] : Denies dysuria. [] Musculoskeletal: Denies back pain or joint pain. [] Integument: Denies rash. [] Neurologic: Denies headache, focal weakness or sensory changes. [] Endocrine: Denies polyuria or polydipsia. [] Lymphatic: Denies swollen glands. [] Psychiatric: Denies depression or anxiety. [] 14 PT ROS OTHERWISE NE Vitals Vitals Vital Signs Date Time Temp Pulse Resp B/P (MAP) Pulse Ox O2 Delivery O2 Flow Rate FiO2 11/01/20 09:53 85 135/71 11/01/20 07:43 100 Nasal Cannula 2.0 11/01/20 07:00 98.1 18 98.1 Physical Exam Physical Exam Constitutional: Well developed, well nourished, no acute distress, non-toxic appearance. [] HENT: Normocephalic, atraumatic, bilateral external ears normal, oropharynx moist, no oral exudates, nose normal. [] Eyes: PERRLA, EOMI, conjunctiva normal, no discharge. [] Neck: Normal range of motion, no tenderness, supple, no stridor. [] Cardiovascular:Heart rate regular rhythm, no murmur [] Lungs & Thorax: Bilateral breath sounds with wheezing diffusely to auscultation. Abdomen: Bowel sounds normal, soft, no tenderness, no masses, no pulsatile masses. [] Skin: Warm, dry, no erythema, no rash. [] Back: No tenderness, no CVA tenderness. [] Extremities: No tenderness, no cyanosis, no clubbing, ROM intact, no edema. [] Neurologic: Alert and oriented X 3, normal motor function, normal sensory function, no focal deficits noted. [] Psychologic: Affect normal, judgement normal, General: Cooperative Abdomen: Soft Rectal Exam: not examined PELVIC: Examination not indicated Extremities: No cyanosis Neuro: Normal speech, Cranial nerves 3-12 NL General: Alert, Oriented X3, Cooperative, No acute distress Heart: Regular rate Lungs: Other Abdomen: Normal bowel sounds, Soft Extremities: No cyanosis Labs LABS PATIENT: AJIT LYNN ACCOUNT: [id number] : 1945 LOCATION: [address] [place] [address] AGE: 75 SEX: M EXAM STATUS: ADM IN ORD. PHYSICIAN: LU KEARNS MD REASON: PNEUMONIA PROCEDURE: CHEST AP ONLY Single view of the chest. 11/01/2020 1:40 PM Indication: Reason: PNEUMONIA / Spl. Instructions: / History: Comparison: Chest radiograph October 30, 2020 Findings: What appear to be severe emphysematous changes are seen. There is no focal consolidation. There is no pleural effusion or pneumothorax heart size is normal. No acute osseous changes are seen. Impression: 1. No evidence of acute cardiopulmonary process. 2. Emphysematous changes Electronically signed by: James Victor MD (11/01/2020 3:08 PM) [id number] DICTATED and SIGNED BY: JAMES VICTOR MD DATE: 11/01/20 [id number] PATIENT: AJIT LYNN ACCOUNT: [id number] : 1945 LOCATION: AGE: 75 SEX: M EXAM STATUS: REG ER ORD. PHYSICIAN: REYES MCFARLAND DO REASON: COUGH, SOA PROCEDURE: CHEST AP ONLY EXAMINATION: Chest radiograph. VIEWS: Single view COMPARISON: 09/03/2020 INDICATION:75 years, Male, cough. FINDINGS: Normal cardiomediastinal silhouette. Hyperinflated lungs with increased upper lungs lucency, most consistent with emphysematous changes. Bibasilar patchy airspace opacities, new since prior exam. No pleural effusion or pneumothorax. No acute osseous process. IMPRESSION: Patchy bibasilar airspace opacities, new since prior exam. Differential includes atelectatic changes, aspiration or pneumonia Electronically signed by: Trista Caba MD (10/30/2020 10:55 PM) [facility]ERNasreen DICTATED and SIGNED BY: TRISTA CABA MD DATE: 10/30/20 [id number] Laboratory Tests Test 11/01/20 06:50 White Blood Count 11.2 x10^3/uL (4.0-11.0) Red Blood Count 4.51 x10^6/uL (4.30-5.70) Hemoglobin 13.4 g/dL (13.0-17.5) Hematocrit 39.7 % (39.0-53.0) Mean Corpuscular Volume 88 fL (79-100) Mean Corpuscular Hemoglobin 30 pg (25-35) Mean Corpuscular Hemoglobin Concent 34 g/dL (31-37) Red Cell Distribution Width 14.3 % (11.5-14.5) Platelet Count 208 x10^3/uL (140-400) Neutrophils (%) (Auto) 65 % (31-73) Lymphocytes (%) (Auto) 25 % (24-48) Monocytes (%) (Auto) 8 % (0-9) Eosinophils (%) (Auto) 2 % (0-3) Basophils (%) (Auto) 0 % (0-3) Neutrophils # (Auto) 7.2 x10^3/uL (1.8-7.7) Lymphocytes # (Auto) 2.8 x10^3/uL (1.0-4.8) Monocytes # (Auto) 0.9 x10^3/uL (0.0-1.1) Eosinophils # (Auto) 0.3 x10^3/uL (0.0-0.7) Basophils # (Auto) 0.0 x10^3/uL (0.0-0.2) Sodium Level 141 mmol/L (136-145) Potassium Level 4.4 mmol/L (3.5-5.1) Chloride Level 102 mmol/L (98-107) Carbon Dioxide Level 35 mmol/L (21-32) Anion Gap 4 (6-14) Blood Urea Nitrogen 17 mg/dL (8-26) Creatinine 1.2 mg/dL (0.7-1.3) Estimated GFR (Cockcroft-Gault) 71.0 Glucose Level 99 mg/dL (70-99) Calcium Level 9.0 mg/dL (8.5-10.1) Assessment and Plan Assessmemt and Plan Problems Medical Problems: (1) COPD with exacerbation Status: Acute (2) Person under investigation for COVID-19 Status: Acute (3) Pneumonia Status: Acute Comment Review of Relevant I have reviewed the following items cele (where applicable) has been applied. Labs Laboratory Tests Test 10/30/20 22:30 10/30/20 23:50 11/01/20 06:50 White Blood Count 9.1 x10^3/uL (4.0-11.0) 11.2 x10^3/uL (4.0-11.0) Red Blood Count 5.15 x10^6/uL (4.30-5.70) 4.51 x10^6/uL (4.30-5.70) Hemoglobin 15.4 g/dL (13.0-17.5) 13.4 g/dL (13.0-17.5) Hematocrit 45.1 % (39.0-53.0) 39.7 % (39.0-53.0) Mean Corpuscular Volume 88 fL (79-100) 88 fL (79-100) Mean Corpuscular Hemoglobin 30 pg (25-35) 30 pg (25-35) Mean Corpuscular Hemoglobin Concent 34 g/dL (31-37) 34 g/dL (31-37) Red Cell Distribution Width 14.1 % (11.5-14.5) 14.3 % (11.5-14.5) Platelet Count 238 x10^3/uL (140-400) 208 x10^3/uL (140-400) Neutrophils (%) (Auto) 39 % (31-73) 65 % (31-73) Lymphocytes (%) (Auto) 44 % (24-48) 25 % (24-48) Monocytes (%) (Auto) 9 % (0-9) 8 % (0-9) Eosinophils (%) (Auto) 7 % (0-3) 2 % (0-3) Basophils (%) (Auto) 1 % (0-3) 0 % (0-3) Neutrophils # (Auto) 3.5 x10^3/uL (1.8-7.7) 7.2 x10^3/uL (1.8-7.7) Lymphocytes # (Auto) 4.0 x10^3/uL (1.0-4.8) 2.8 x10^3/uL (1.0-4.8) Monocytes # (Auto) 0.8 x10^3/uL (0.0-1.1) 0.9 x10^3/uL (0.0-1.1) Eosinophils # (Auto) 0.7 x10^3/uL (0.0-0.7) 0.3 x10^3/uL (0.0-0.7) Basophils # (Auto) 0.1 x10^3/uL (0.0-0.2) 0.0 x10^3/uL (0.0-0.2) Sodium Level 140 mmol/L (136-145) 141 mmol/L (136-145) Potassium Level 4.0 mmol/L (3.5-5.1) 4.4 mmol/L (3.5-5.1) Chloride Level 100 mmol/L (98-107) 102 mmol/L (98-107) Carbon Dioxide Level 32 mmol/L (21-32) 35 mmol/L (21-32) Anion Gap 8 (6-14) 4 (6-14) Blood Urea Nitrogen 17 mg/dL (8-26) 17 mg/dL (8-26) Creatinine 1.0 mg/dL (0.7-1.3) 1.2 mg/dL (0.7-1.3) Estimated GFR (Cockcroft-Gault) 87.7 71.0 BUN/Creatinine Ratio 17 (6-20) Glucose Level 117 mg/dL (70-99) 99 mg/dL (70-99) Lactic Acid Level 1.4 mmol/L (0.4-2.0) Calcium Level 9.6 mg/dL (8.5-10.1) 9.0 mg/dL (8.5-10.1) Magnesium Level 2.2 mg/dL (1.8-2.4) Total Bilirubin 0.3 mg/dL (0.2-1.0) Aspartate Amino Transf (AST/SGOT) 20 U/L (15-37) Alanine Aminotransferase (ALT/SGPT) 28 U/L (16-63) Alkaline Phosphatase 80 U/L (46-116) Troponin I Quantitative < 0.017 ng/mL (0.000-0.055) AI-Onz-S-Type Natriuretic Peptide 51 pg/mL (0-449) Total Protein 7.6 g/dL (6.4-8.2) Albumin 3.5 g/dL (3.4-5.0) Albumin/Globulin Ratio 0.9 (1.0-1.7) SARS-CoV-2 RNA (ASAD) Negative (Negative) SARS-CoV-2 Antigen (Rapid) Negative (NEGATIVE) Laboratory Tests Test 11/01/20 06:50 White Blood Count 11.2 x10^3/uL (4.0-11.0) Red Blood Count 4.51 x10^6/uL (4.30-5.70) Hemoglobin 13.4 g/dL (13.0-17.5) Hematocrit 39.7 % (39.0-53.0) Mean Corpuscular Volume 88 fL (79-100) Mean Corpuscular Hemoglobin 30 pg (25-35) Mean Corpuscular Hemoglobin Concent 34 g/dL (31-37) Red Cell Distribution Width 14.3 % (11.5-14.5) Platelet Count 208 x10^3/uL (140-400) Neutrophils (%) (Auto) 65 % (31-73) Lymphocytes (%) (Auto) 25 % (24-48) Monocytes (%) (Auto) 8 % (0-9) Eosinophils (%) (Auto) 2 % (0-3) Basophils (%) (Auto) 0 % (0-3) Neutrophils # (Auto) 7.2 x10^3/uL (1.8-7.7) Lymphocytes # (Auto) 2.8 x10^3/uL (1.0-4.8) Monocytes # (Auto) 0.9 x10^3/uL (0.0-1.1) Eosinophils # (Auto) 0.3 x10^3/uL (0.0-0.7) Basophils # (Auto) 0.0 x10^3/uL (0.0-0.2) Sodium Level 141 mmol/L (136-145) Potassium Level 4.4 mmol/L (3.5-5.1) Chloride Level 102 mmol/L (98-107) Carbon Dioxide Level 35 mmol/L (21-32) Anion Gap 4 (6-14) Blood Urea Nitrogen 17 mg/dL (8-26) Creatinine 1.2 mg/dL (0.7-1.3) Estimated GFR (Cockcroft-Gault) 71.0 Glucose Level 99 mg/dL (70-99) Calcium Level 9.0 mg/dL (8.5-10.1) Microbiology 10/31/20 Blood Culture - Preliminary, Resulted NO GROWTH AFTER 1 DAY Medications Current Medications Albuterol/ Ipratropium (Duoneb) 3 ml 1X ONCE NEB Last administered on 10/30/20at 21:45; Start 10/30/20 at 21:45; Stop 10/30/20 at 21:46; Status DC Methylprednisolone Sodium Succinate (SOLU-Medrol 125MG VIAL) 125 mg 1X ONCE IV Last administered on 10/30/20at 21:48; Start 10/30/20 at 21:45; Stop 10/30/20 at 21:46; Status DC Ceftriaxone Sodium (Rocephin) 1 gm 1X ONCE IVP Last administered on 10/30/20at 23:37; Start 10/30/20 at 23:15; Stop 10/30/20 at 23:16; Status DC Azithromycin 250 ml @ 250 mls/hr 1X ONCE IV Last administered on 10/30/20at 23:37; Start 10/30/20 at 23:15; Stop 10/31/20 at 00:14; Status DC Ondansetron HCl (Zofran) 4 mg PRN Q8HRS PRN IVP NAUSEA/VOMITING; Start 10/31/20 at 00:00; Stop 10/31/20 at 16:18; Status DC Sodium Chloride 1,000 ml @ 75 mls/hr [id number] IV Last administered on 10/31/20at 13:20; Start 10/31/20 at 00:00; Stop 10/31/20 at 23:59; Status DC Albuterol/ Ipratropium (Duoneb) 3 ml RTQID NEB ; Start 10/31/20 at 08:00; Stop 10/31/20 at 14:32; Status DC Azithromycin 250 ml @ 250 mls/hr DAILY07 IV ; Start 10/31/20 at 14:15; Status UNV Sodium Chloride (Normal Saline Flush) 3 ml QSHIFT PRN IV AFTER MEDS AND BLOOD DRAWS; Start 10/31/20 at 14:15 Ondansetron HCl (Zofran) 4 mg PRN Q4HRS PRN IV NAUSEA/VOMITING; Start 10/31/20 at 14:15 Acetaminophen (Tylenol) 650 mg PRN Q4HRS PRN PO TEMP OVER 100.4F OR MILD PAIN; Start 10/31/20 at 14:15 Al Hydroxide/Mg Hydroxide (Mylanta Plus Xs) 30 ml PRN DAILY PRN PO HEARTBURN / GAS; Start 10/31/20 at 14:15 Sodium Monofluorophosphate (Fleet Adult) 133 ml PRN DAILY PRN PA CONSTIPATION; Start 10/31/20 at 14:15 Docusate Sodium (Colace) 100 mg PRN BID PRN PO HARD STOOLS; Start 10/31/20 at 14:15 Albuterol/ Ipratropium (Duoneb) 3 ml Q4HRS NEB Last administered on 11/01/20at 07:39; Start 10/31/20 at 14:15 Guaifenesin (Robitussin) 200 mg PRN Q4HRS PRN PO COUGH; Start 10/31/20 at 14:15 Enoxaparin Sodium (Lovenox 40mg Syringe) 40 mg Q24H SQ Last administered on 10/31/20at 15:04; Start 10/31/20 at 15:00 Amlodipine Besylate (Norvasc) 5 mg DAILY PO Last administered on 11/01/20at 09:53; Start 10/31/20 at 15:00 Aspirin (Aspirin Chewable) 81 mg DAILY PO Last administered on 11/01/20at 09:53; Start 10/31/20 at 15:00 Calcium Carbonate/ Glycine (Tums) 500 mg PRN Q3HRS PRN PO UPSET STOMACH; Start 10/31/20 at 14:15 Non-Formulary Medication (Albuterol Sulfate (Proventil Hfa)) 2 puff PRN Q6HRS PRN INH SHORTNESS OF BREATH; Start 10/31/20 at 14:15; Status UNV Triamterene/HCTZ (Maxzide 37.5/ 25mg) 1 tab DAILY PO Last administered on 11/01/20at 09:52; Start 10/31/20 at 15:00 Azithromycin 500 mg/Sodium Chloride 250 ml @ 250 mls/hr Q24H IV Last administered on 10/31/20at 15:05; Start 10/31/20 at 15:00 Albuterol Sulfate (Ventolin Neb Soln) 2.5 mg PRN Q6HRS PRN NEB SHORTNESS OF BREATH; Start 10/31/20 at 14:30 Albuterol Sulfate (Ventolin Hfa) 1 puff PRN Q6HRS PRN INH SHORTNESS OF BREATH; Start 10/31/20 at 15:30 Active Scripts Active Calcium Carbonate 200 Mg Tab.chew 500 Mg PO PRN Q3HRS PRN 14 Days Acetaminophen 325 Mg Tablet 650 Mg PO PRN Q6HRS PRN 30 Days Amlodipine Besylate 5 Mg Tablet 5 Mg PO DAILY 30 Days Reported Aspirin 81 Mg Tab.chew 1 Tab PO DAILY Proventil Hfa (Albuterol Sulfate) 6.7 Gm Hfa.aer.ad 2 Puff INH PRN Q6HRS PRN Dyazide 37.5-25 Capsule (Triamterene/Hydrochlorothiazid) 1 Each Capsule 1 Cap PO DAILY Vitals/I & O Vital Sign - Last 24 Hours 10/31/20 10/31/20 10/31/20 10/31/20 11:00 15:00 15:04 19:00 Temp 97.6 98.6 97.5 97.6 98.6 97.5 Pulse 89 90 89 96 Resp 18 18 B/P (MAP) 149/95 (113) 135/86 (102) 149/95 163/87 (112) Pulse Ox 96 95 98 O2 Delivery Nasal Cannula Nasal Cannula Nasal Cannula O2 Flow Rate 2.0 2.0 3.0 10/31/20 10/31/20 10/31/20 11/01/20 19:40 20:11 22:34 00:24 Temp 97.7 97.7 Pulse 92 Resp 18 B/P (MAP) 159/82 (107) Pulse Ox 97 98 O2 Delivery Nasal Cannula Nasal Cannula Nasal Cannula Nasal Cannula O2 Flow Rate 2.0 2.0 3.0 2.0 11/01/20 11/01/20 11/01/20 11/01/20 03:00 03:50 07:00 07:43 Temp 97.2 98.1 97.2 98.1 Pulse 90 85 Resp 18 18 B/P (MAP) 148/74 (98) 135/71 (92) Pulse Ox 98 98 100 O2 Delivery Nasal Cannula Nasal Cannula Nasal Cannula Nasal Cannula O2 Flow Rate 3.0 2.0 3.0 2.0 11/01/20 09:53 Pulse 85 B/P (MAP) 135/71 l Intake and Output 10/31/20 10/31/20 11/01/20 15:00 23:00 07:00 Intake Total 500 ml 250 ml Balance 500 ml 250 ml Justicifation of Admission Dx: Justifications for Admission: Justification of Admission Dx: No LU KEARNS MD Nov 01, 2020 10:47
[2020-11-01 11:00] VITALS: BP 105/59
[2020-11-01 15:00] VITALS: BP 135/76
--- NOTE | 2020-11-01 15:10 | RAD ---
Single view of the chest. 11/01/2020 1:40 PM Indication: Reason: PNEUMONIA / Spl. Instructions: / History: Comparison: Chest radiograph October 30, 2020 Findings: What appear to be severe emphysematous changes are seen. There is no focal consolidation. T here is no pleural effusion or pneumothorax heart size is normal. No acute osseous changes are seen. Impression: 1. No evidence of acute cardiopulmonary process. 2. Emphysematous changes Electronically signed by: James Wade MD (11/01/2020 3:08 PM) [id number]
[2020-11-01] MEDS: AZITHROMYCIN 500 MG in IV NORMAL SALINE 250ML 250 ML IV SCH (15:32)
[2020-11-01] MEDS: ENOXAPARIN 40 MG/0.4 ML SYRINGE. SQ SCH (15:33)
[2020-11-01 19:00] VITALS: BP 137/76
--- NOTE | 2020-11-01 19:32 | NUR ---
Saul's IV infiltrated and day nurse tried twice. He doesn't want an IV if he doesn't have to have one. Called Dr. Luque and he said we can d/c IVF since he's eating and drinking well and to change IV Zithromax to PO 500 mg daily.
[2020-11-01] MEDS: LACTOBACILLUS RHAMNOSUS GG 1 CAPSULE. PO SCH (21:15)
[2020-11-01 23:01] VITALS: BP 132/81
[2020-11-02] MEDS: IPRATRPIUM/ALBUTEROL 0.5/2.5MG 3 ML NEBU. NEB SCH ×4 (00:32→10:52)
[2020-11-02 04:32] VITALS: BP 109/59
[2020-11-02 07:00] VITALS: BP 133/87
[2020-11-02] MEDS: TRIAMTERENE/HCTZ 37.5/25MG TABLET. PO SCH (08:51)
[2020-11-02] MEDS: ASPIRIN CHEWABLE 81 MG TABLET. PO SCH (08:51)
[2020-11-02] MEDS: LACTOBACILLUS RHAMNOSUS GG 1 CAPSULE. PO SCH ×2 (08:51→20:47)
[2020-11-02] MEDS: AZITHROMYCIN 250 MG TABLET. PO SCH (08:52)
--- NOTE | 2020-11-02 10:51 | PDOC ---
PROGRESS NOTES Date of Service: DATE: 11/02/20 TIME: 10:48 Chief Complaint Chief Complaint VTE Prophylaxis Ordered VTE Prophylaxis Devices: Yes VTE Pharmacological Prophylaxi: No Assessment/Plan Assessment/Plan Assessment/Plan 74-year-old -[place] male presenting for COPD exacerbation. ACUTE COPD exacerbation, acute hypoxic respiratory failure, tobacco abuse -Patient with frequent admissions for COPD exacerbations -Was given breathing treatments and Solu-Medrol in the emergency room, with improvement in symptoms -We will start patient on oral prednisone burst -DuoNebs scheduled -Educated patient on the importance of outpatient follow-up and medication compliance Alcohol abuse, drug abuse discuss with patient if he desires treatment in this regard. ADMIT Continue supplemental oxygen to keep sats above 90% on 3 liters nc 6 min walk at [place] advised to quit smoking for ever Continue DuoNeb and ICS, nebulizer, Pulmicort. for home symbicort 160/ 2 p bid rinse mouth after use albuterol prn Continue empiric antibiotics azithromycin PFTs as an outpatient DVT/GI PPX Discussed with RN, pt ct chest today 11-02 add iv solumedrol 60 mg q 8 hrs 38 min pt exam, chart review, > 50% of time spent with exam, chart review, pt care coordination History of Present Illness History of Present Illness Identification/Chief Complaint Chief Complaint SOA, COUGH History of Present Illness History of Present Illness 75-year-old -[place]namese male presented to ER for COPD exacerbation. ACUTE COPD exacerbation, acute hypoxic respiratory failure, tobacco abuse frequent admissions for COPD exacerbations ymptoms have been going on for 1 week. Patient has history of COPD, he is on 2 L oxygen at home. denies any chest pain, / abdominal pain, no nausea or vomiting. was vaccinated for COVID- 19 already. Upon arrival to er his oxygen saturation was in the 80% DuoNebs scheduled Educated patient on the importance of outpatient follow-up and medication compliance hx Alcohol abuse, drug abuse Past Medical History Past Medical History Past Medical History Past Medical History: COPD, High Cholesterol, Hypertension Past Surgical History: Other Additional Past Surgical Histo: inguinal hernia repair 09/12/19 Smoking Status: Former Smoker Alcohol Use: Occasionally Drug Use: Cocaine, Marijuana, Methamphetamine Social History Narrative: PT STATES HE HASN'T USED DRUGS IN MONTHS FHX HTN Cardiovascular: HTN, Hyperlipidemia Past Surgical History Past Surgical History: Hernia Repair Family History Family History: Hypertension Social History Smoke: Quit ALCOHOL: rare Drugs: Marijuana Current Problem List Problem List Problems Medical Problems: (1) COPD with exacerbation Status: Acute (2) Person under investigation for COVID-19 Status: Acute (3) Pneumonia Status: Acute Current Medications Current Medications Current Medications Albuterol/ Ipratropium (Duoneb) 3 ml 1X ONCE NEB Last administered on 10/30/20at 21:45; Start 10/30/20 at 21:45; Stop 10/30/20 at 21:46; Status DC Methylprednisolone Sodium Succinate (SOLU-Medrol 125MG VIAL) 125 mg 1X ONCE IV Last administered on 10/30/20at 21:48; Start 10/30/20 at 21:45; Stop 10/30/20 at 21:46; Status DC Ceftriaxone Sodium (Rocephin) 1 gm 1X ONCE IVP Last administered on 10/30/20at 23:37; Start 10/30/20 at 23:15; Stop 10/30/20 at 23:16; Status DC Azithromycin 250 ml @ 250 mls/hr 1X ONCE IV Last administered on 10/30/20at 23:37; Start 10/30/20 at 23:15; Stop 10/31/20 at 00:14; Status DC Ondansetron HCl (Zofran) 4 mg PRN Q8HRS PRN IVP NAUSEA/VOMITING; Start 10/31/20 at 00:00; Stop 10/31/20 at 23:59 Sodium Chloride 1,000 ml @ 75 mls/hr [id number] IV Last administered on 10/31/20at 02:33; Start 10/31/20 at 00:00; Stop 10/31/20 at 23:59 Albuterol/ Ipratropium (Duoneb) 3 ml RTQID NEB ; Start 10/31/20 at 08:00; Stop 11/01/20 at 07:59 Active Scripts Active Calcium Carbonate 200 Mg Tab.chew 500 Mg PO PRN Q3HRS PRN 14 Days Acetaminophen 325 Mg Tablet 650 Mg PO PRN Q6HRS PRN 30 Days Amlodipine Besylate 5 Mg Tablet 5 Mg PO DAILY 30 Days Reported Aspirin 81 Mg Tab.chew 1 Tab PO DAILY Proventil Hfa (Albuterol Sulfate) 6.7 Gm Hfa.aer.ad 2 Puff INH PRN Q6HRS PRN Dyazide 37.5-25 Capsule (Triamterene/Hydrochlorothiazid) 1 Each Capsule 1 Cap PO DAILY Allergies Allergies: Coded Allergies: No Known Drug Allergies (Unverified , 09/12/19) ROS Review of System Constitutional: Denies fever or chills. [] Eyes: Denies change in visual acuity. [] HENT: Denies nasal congestion or sore throat. [] Respiratory: Positive for cough and trouble breathing. Cardiovascular: Denies chest pain or edema. [] GI: Denies abdominal pain, nausea, vomiting, bloody stools or diarrhea. [] : Denies dysuria. [] Musculoskeletal: Denies back pain or joint pain. [] Integument: Denies rash. [] Neurologic: Denies headache, focal weakness or sensory changes. [] Endocrine: Denies polyuria or polydipsia. [] Lymphatic: Denies swollen glands. [] Psychiatric: Denies depression or anxiety. [] 14 PT ROS OTHERWISE NE Vitals Vitals Vital Signs Date Time Temp Pulse Resp B/P (MAP) Pulse Ox O2 Delivery O2 Flow Rate FiO2 11/02/20 08:52 89 133/87 11/02/20 07:00 97.1 20 96 Nasal Cannula 97.1 11/02/20 04:25 2.0 Physical Exam Physical Exam Constitutional: Well developed, well nourished, no acute distress, non-toxic appearance. [] HENT: Normocephalic, atraumatic, bilateral external ears normal, oropharynx moist, no oral exudates, nose normal. [] Eyes: PERRLA, EOMI, conjunctiva normal, no discharge. [] Neck: Normal range of motion, no tenderness, supple, no stridor. [] Cardiovascular:Heart rate regular rhythm, no murmur [] Lungs & Thorax: Bilateral breath sounds with wheezing diffusely to auscultation. Abdomen: Bowel sounds normal, soft, no tenderness, no masses, no pulsatile masses. [] Skin: Warm, dry, no erythema, no rash. [] Back: No tenderness, no CVA tenderness. [] Extremities: No tenderness, no cyanosis, no clubbing, ROM intact, no edema. [] Neurologic: Alert and oriented X 3, normal motor function, normal sensory function, no focal deficits noted. [] Psychologic: Affect normal, judgement normal, General: Cooperative Abdomen: Soft Rectal Exam: not examined PELVIC: Examination not indicated Extremities: No cyanosis Neuro: Normal speech, Cranial nerves 3-12 NL General: Alert, Oriented X3, Cooperative, No acute distress Heart: Regular rate Lungs: Wheezing, Other Abdomen: Normal bowel sounds, Soft Extremities: No cyanosis Labs LABS Procedure Result BLOOD CULTURE Preliminary NO GROWTH AFTER 2 DAYS PATIENT: AJIT LYNN ACCOUNT: [id number] : 1945 LOCATION: [address] [place] [address] AGE: 75 SEX: M EXAM STATUS: ADM IN ORD. PHYSICIAN: LU KEARNS MD REASON: PNEUMONIA PROCEDURE: CHEST AP ONLY Single view of the chest. 11/01/2020 1:40 PM Indication: Reason: PNEUMONIA / Spl. Instructions: / History: Comparison: Chest radiograph October 30, 2020 Findings: What appear to be severe emphysematous changes are seen. There is no focal consolidation. There is no pleural effusion or pneumothorax heart size is normal. No acute osseous changes are seen. Impression: 1. No evidence of acute cardiopulmonary process. 2. Emphysematous changes Electronically signed by: James Victor MD (11/01/2020 3:08 PM) [id number] DICTATED and SIGNED BY: JAMES VICTOR MD DATE: 11/01/20 [id number] Assessment and Plan Assessmemt and Plan Problems Medical Problems: (1) COPD with exacerbation Status: Acute (2) Person under investigation for COVID-19 Status: Acute (3) Pneumonia Status: Acute Comment Review of Relevant I have reviewed the following items cele (where applicable) has been applied. Labs Laboratory Tests Test 11/01/20 06:50 White Blood Count 11.2 x10^3/uL (4.0-11.0) Red Blood Count 4.51 x10^6/uL (4.30-5.70) Hemoglobin 13.4 g/dL (13.0-17.5) Hematocrit 39.7 % (39.0-53.0) Mean Corpuscular Volume 88 fL (79-100) Mean Corpuscular Hemoglobin 30 pg (25-35) Mean Corpuscular Hemoglobin Concent 34 g/dL (31-37) Red Cell Distribution Width 14.3 % (11.5-14.5) Platelet Count 208 x10^3/uL (140-400) Neutrophils (%) (Auto) 65 % (31-73) Lymphocytes (%) (Auto) 25 % (24-48) Monocytes (%) (Auto) 8 % (0-9) Eosinophils (%) (Auto) 2 % (0-3) Basophils (%) (Auto) 0 % (0-3) Neutrophils # (Auto) 7.2 x10^3/uL (1.8-7.7) Lymphocytes # (Auto) 2.8 x10^3/uL (1.0-4.8) Monocytes # (Auto) 0.9 x10^3/uL (0.0-1.1) Eosinophils # (Auto) 0.3 x10^3/uL (0.0-0.7) Basophils # (Auto) 0.0 x10^3/uL (0.0-0.2) Sodium Level 141 mmol/L (136-145) Potassium Level 4.4 mmol/L (3.5-5.1) Chloride Level 102 mmol/L (98-107) Carbon Dioxide Level 35 mmol/L (21-32) Anion Gap 4 (6-14) Blood Urea Nitrogen 17 mg/dL (8-26) Creatinine 1.2 mg/dL (0.7-1.3) Estimated GFR (Cockcroft-Gault) 71.0 Glucose Level 99 mg/dL (70-99) Calcium Level 9.0 mg/dL (8.5-10.1) Microbiology 10/31/20 Blood Culture - Preliminary, Resulted NO GROWTH AFTER 2 DAYS Medications Current Medications Albuterol/ Ipratropium (Duoneb) 3 ml 1X ONCE NEB Last administered on 10/30/20at 21:45; Start 10/30/20 at 21:45; Stop 10/30/20 at 21:46; Status DC Methylprednisolone Sodium Succinate (SOLU-Medrol 125MG VIAL) 125 mg 1X ONCE IV Last administered on 10/30/20at 21:48; Start 10/30/20 at 21:45; Stop 10/30/20 at 21:46; Status DC Ceftriaxone Sodium (Rocephin) 1 gm 1X ONCE IVP Last administered on 10/30/20at 23:37; Start 10/30/20 at 23:15; Stop 10/30/20 at 23:16; Status DC Azithromycin 250 ml @ 250 mls/hr 1X ONCE IV Last administered on 10/30/20at 23:37; Start 10/30/20 at 23:15; Stop 10/31/20 at 00:14; Status DC Ondansetron HCl (Zofran) 4 mg PRN Q8HRS PRN IVP NAUSEA/VOMITING; Start 10/31/20 at 00:00; Stop 10/31/20 at 16:18; Status DC Sodium Chloride 1,000 ml @ 75 mls/hr [id number] IV Last administered on 10/31/20at 13:20; Start 10/31/20 at 00:00; Stop 10/31/20 at 23:59; Status DC Albuterol/ Ipratropium (Duoneb) 3 ml RTQID NEB ; Start 10/31/20 at 08:00; Stop 10/31/20 at 14:32; Status DC Azithromycin 250 ml @ 250 mls/hr DAILY07 IV ; Start 10/31/20 at 14:15; Status UNV Sodium Chloride (Normal Saline Flush) 3 ml QSHIFT PRN IV AFTER MEDS AND BLOOD DRAWS; Start 10/31/20 at 14:15 Ondansetron HCl (Zofran) 4 mg PRN Q4HRS PRN IV NAUSEA/VOMITING; Start 10/31/20 at 14:15 Acetaminophen (Tylenol) 650 mg PRN Q4HRS PRN PO TEMP OVER 100.4F OR MILD PAIN; Start 10/31/20 at 14:15 Al Hydroxide/Mg Hydroxide (Mylanta Plus Xs) 30 ml PRN DAILY PRN PO HEARTBURN / GAS; Start 10/31/20 at 14:15 Sodium Monofluorophosphate (Fleet Adult) 133 ml PRN DAILY PRN [place] CONSTIPATION; Start 10/31/20 at 14:15 Docusate Sodium (Colace) 100 mg PRN BID PRN PO HARD STOOLS; Start 10/31/20 at 14:15 Albuterol/ Ipratropium (Duoneb) 3 ml Q4HRS NEB Last administered on 11/02/20at 08:00; Start 10/31/20 at 14:15 Guaifenesin (Robitussin) 200 mg PRN Q4HRS PRN PO COUGH; Start 10/31/20 at 14:15 Enoxaparin Sodium (Lovenox 40mg Syringe) 40 mg Q24H SQ Last administered on 11/01/20at 15:33; Start 10/31/20 at 15:00 Amlodipine Besylate (Norvasc) 5 mg DAILY PO Last administered on 11/02/20at 08:52; Start 10/31/20 at 15:00 Aspirin (Aspirin Chewable) 81 mg DAILY PO Last administered on 11/02/20at 08:51; Start 10/31/20 at 15:00 Calcium Carbonate/ Glycine (Tums) 500 mg PRN Q3HRS PRN PO UPSET STOMACH; Start 10/31/20 at 14:15 Non-Formulary Medication (Albuterol Sulfate (Proventil Hfa)) 2 puff PRN Q6HRS PRN INH SHORTNESS OF BREATH; Start 10/31/20 at 14:15; Status UNV Triamterene/HCTZ (Maxzide 37.5/ 25mg) 1 tab DAILY PO Last administered on 11/02/20at 08:51; Start 10/31/20 at 15:00 Azithromycin 500 mg/Sodium Chloride 250 ml @ 250 mls/hr Q24H IV Last administered on 11/01/20at 15:32; Start 10/31/20 at 15:00; Stop 11/01/20 at 19:37; Status DC Albuterol Sulfate (Ventolin Neb Soln) 2.5 mg PRN Q6HRS PRN NEB SHORTNESS OF BREATH; Start 10/31/20 at 14:30; Stop 11/01/20 at 12:50; Status DC Albuterol Sulfate (Ventolin Hfa) 1 puff PRN Q6HRS PRN INH SHORTNESS OF BREATH; Start 10/31/20 at 15:30 Lactobacillus Rhamnosus (Culturelle) 1 cap BID PO Last administered on 11/02/20at 08:51; Start 11/01/20 at 21:00 Azithromycin (Zithromax) 500 mg DAILY PO Last administered on 11/02/20at 08:52; Start 11/02/20 at 09:00 Active Scripts Active Calcium Carbonate 200 Mg Tab.chew 500 Mg PO PRN Q3HRS PRN 14 Days Acetaminophen 325 Mg Tablet 650 Mg PO PRN Q6HRS PRN 30 Days Amlodipine Besylate 5 Mg Tablet 5 Mg PO DAILY 30 Days Reported Aspirin 81 Mg Tab.chew 1 Tab PO DAILY Proventil Hfa (Albuterol Sulfate) 6.7 Gm Hfa.aer.ad 2 Puff INH PRN Q6HRS PRN Dyazide 37.5-25 Capsule (Triamterene/Hydrochlorothiazid) 1 Each Capsule 1 Cap PO DAILY Vitals/I & O Vital Sign - Last 24 Hours 11/01/20 11/01/20 11/01/20 11/01/20 10:56 11:00 15:00 16:11 Temp 97.4 97.7 97.4 97.7 Pulse 84 84 Resp 18 18 B/P (MAP) 105/59 (74) 135/76 (95) Pulse Ox 98 96 98 98 O2 Delivery Nasal Cannula Nasal Cannula Nasal Cannula Nasal Cannula O2 Flow Rate 2.0 3.0 3.0 2.0 11/01/20 11/01/20 11/01/20 11/01/20 19:00 19:00 19:54 21:00 Temp 98.0 98.0 98.0 98.0 Pulse 83 Resp 20 B/P (MAP) 137/76 (96) 137/76 (96) Pulse Ox 98 O2 Delivery Nasal Cannula Nasal Cannula Nasal Cannula O2 Flow Rate 2.0 2.0 11/01/20 11/02/20 11/02/20 11/02/20 23:01 00:33 04:25 04:32 Temp 97.6 97.5 97.6 97.5 Pulse 84 79 Resp 20 20 B/P (MAP) 132/81 (98) 109/59 (76) Pulse Ox 95 100 O2 Delivery Nasal Cannula Nasal Cannula Nasal Cannula Nasal Cannula O2 Flow Rate 2.0 2.0 11/02/20 11/02/20 07:00 08:52 Temp 97.1 97.1 Pulse 89 89 Resp 20 B/P (MAP) 133/87 (102) 133/87 Pulse Ox 96 O2 Delivery Nasal Cannula Intake and Output 11/01/20 11/01/20 11/02/20 15:00 23:00 07:00 Intake Total 500 ml 0 ml Output Total 600 ml Balance 500 ml 0 ml -600 ml Justicifation of Admission Dx: Justifications for Admission: Justification of Admission Dx: No LU KEARNS MD Nov 02, 2020 10:51
[2020-11-02 11:00] VITALS: BP 165/101
[2020-11-02] MEDS ORDERED: methylPREDNISolone SOD SUCC PF 125 MG/2 ML VIAL. IV SCH (14:00)
[2020-11-02 15:00] VITALS: BP 134/76
[2020-11-02] MEDS: ENOXAPARIN 40 MG/0.4 ML SYRINGE. SQ SCH (15:00)
[2020-11-02] MEDS: predniSONE 20 MG TABLET PO SCH (18:03)
[2020-11-02 19:00] VITALS: BP 147/89
[2020-11-02 23:00] VITALS: BP 121/97
[2020-11-03 04:33] VITALS: BP 153/102
[2020-11-03 07:00] VITALS: BP 167/81
[2020-11-03] MEDS: AZITHROMYCIN 250 MG TABLET. PO SCH (08:42)
[2020-11-03] MEDS: TRIAMTERENE/HCTZ 37.5/25MG TABLET. PO SCH (08:42)
[2020-11-03] MEDS: ASPIRIN CHEWABLE 81 MG TABLET. PO SCH (08:42)
[2020-11-03] MEDS: LACTOBACILLUS RHAMNOSUS GG 1 CAPSULE. PO SCH ×2 (08:42→20:39)
[2020-11-03] MEDS: predniSONE 20 MG TABLET PO SCH (08:42)
--- NOTE | 2020-11-03 10:00 | RAD ---
CT THORAX WO INDICATION: PNEUMONIA COMPARISON STUDY: 11/01/2020. TECHNIQUE: Unenhanced axial images were obtained through the lungs and upper abdomen. Coronal and sa gittal multiplanar reconstructions were also obtained. PQRS compliance statement: One or more of the following individualized dose reduction techniques were utilized for this examinat ion: 1. Automated exposure control 2. Adjustment of the mA and/or kV according to patient size 3. Use of iterative reconstruction technique FINDINGS: Lungs and Airways: No pulmonary mass or consolidation. Right lower lobe 8 mm nodule (series 3 image 4 8). Severe emphysema. Right Bochdalek hernia. Normal central airways. Pleura: The pleural spaces are normal. Heart and Mediastinum: The visualized thyroid gland is normal in size and attenuation. No axillary or supraclavicular lymphadenopathy. No mediastinal, hilar or retrocrural lymphadenopathy. Normal cardia c size. No pericardial effusion. Coronary artery atherosclerotic disease. Atherosclerosis of the thor acic aorta. Abdomen: The visualized abdominal organs demonstrate no abnormality. Bones and Soft Tissues: Mild right convex thoracic curvature. IMPRESSION: 1. No consolidation. 2. Right lower lobe 8 mm nodule. Recommend three-month follow-up chest CT to assess stability, given risk factors. This nodule may be below size threshold for PET sensitivity. 3. Severe centrilobular emphysema. 4. Coronary artery atherosclerotic disease. Electronically signed by: Domingo Herring MD (11/03/2020 9:57 AM) [id number]
[2020-11-03 10:46] LABS: BASO % 0 % (0-3); EOS # 0.1 x10^3/uL (0.0-0.7); EOS % 1 % (0-3); HEMATOCRIT 42.4 % (39.0-53.0); HEMOGLOBIN 14.4 g/dL (13.0-17.5); LYMPH # 1.8 x10^3/uL (1.0-4.8); LYMPH % 21 % (24-48); MEAN CORPUSCULAR HEMOGLOBIN 30 pg (25-35); MEAN CORPUSCULAR HGB CONC 34 g/dL (31-37); MEAN CORPUSCULAR VOLUME 89 fL (79-100); MONO # 0.5 x10^3/uL (0.0-1.1); MONO % 5 % (0-9); NEUT # 6.4 x10^3/uL (1.8-7.7); NEUT % 73 % (31-73); PLATELET COUNT 223 x10^3/uL (140-400); RED BLOOD COUNT 4.79 x10^6/uL (4.30-5.70); RED CELL DISTRIBUTION WIDTH 14.4 % (11.5-14.5); WHITE BLOOD COUNT 8.8 x10^3/uL (4.0-11.0)
--- NOTE | 2020-11-03 10:49 | PDOC ---
PROGRESS NOTES Date of Service: DATE: 11/03/20 TIME: 10:48 Chief Complaint Chief Complaint VTE Prophylaxis Ordered VTE Prophylaxis Devices: Yes VTE Pharmacological Prophylaxi: No Assessment/Plan Assessment/Plan Assessment/Plan 74-year-old -Italian male presenting for COPD exacerbation. ACUTE COPD exacerbation, acute hypoxic respiratory failure, tobacco abuse -Patient with frequent admissions for COPD exacerbations -Was given breathing treatments and Solu-Medrol in the emergency room, with improvement in symptoms -We will start patient on oral prednisone burst -DuoNebs scheduled -Educated patient on the importance of outpatient follow-up and medication compliance Alcohol abuse, drug abuse discuss with patient if he desires treatment in this regard. Right lower lobe 8 mm nodule/ three-month follow-up chest CT to assess stabil ity, given risk factors. nodule below size threshold for PET sensitivity. Severe centrilobular emphysema ADMIT Continue supplemental oxygen to keep sats above 90% on 3 liters nc 6 min walk at [place] advised to quit smoking for ever Continue DuoNeb and ICS, nebulizer, Pulmicort. for home symbicort 160/ 2 p bid rinse mouth after use albuterol prn Continue empiric antibiotics azithromycin PFTs as an outpatient DVT/GI PPX Discussed with RN, pt ct chest today 11-02 add iv solumedrol 60 mg q 8 hrs 38 min pt exam, chart review, > 50% of time spent with exam, chart review, pt care coordination History of Present Illness History of Present Illness Identification/Chief Complaint Chief Complaint SOA, COUGH History of Present Illness History of Present Illness 75-year-old -Italian male presented to ER for COPD exacerbation. ACUTE COPD exacerbation, acute hypoxic respiratory failure, tobacco abuse frequent admissions for COPD exacerbations ymptoms have been going on for 1 week. Patient has history of COPD, he is on 2 L oxygen at home. denies any chest pain, / abdominal pain, no nausea or vomiting. was vaccinated for COVID- 19 already. Upon arrival to er his oxygen saturation was in the 80% DuoNebs scheduled Educated patient on the importance of outpatient follow-up and medic ation compliance hx Alcohol abuse, drug abuse Past Medical History Past Medical History Past Medical History Past Medical History: COPD, High Cholesterol, Hypertension Past Surgical History: Other Additional Past Surgical Histo: inguinal hernia repair 09/12/19 Smoking Status: Former Smoker Alcohol Use: Occasionally Drug Use: Cocaine, Marijuana, Methamphetamine Social History Narrative: PT STATES HE HASN'T USED DRUGS IN MONTHS FHX HTN Cardiovascular: HTN, Hyperlipidemia Past Surgical History Past Surgical History: Hernia Repair Family History Family History: Hypertension Social History Smoke: Quit ALCOHOL: rare Drugs: Marijuana Current Problem List Problem List Problems Medical Problems: (1) COPD with exacerbation Status: Acute (2) Person under investigation for COVID-19 Status: Acute (3) Pneumonia Status: Acute Current Medications Current Medications Current Medications Albuterol/ Ipratropium (Duoneb) 3 ml 1X ONCE NEB Last administered on 10/30/20at 21:45; Start 10/30/20 at 21:45; Stop 10/30/20 at 21:46; Status DC Methylprednisolone Sodium Succinate (SOLU-Medrol 125MG VIAL) 125 mg 1X ONCE IV Last administered on 10/30/20at 21:48; Start 10/30/20 at 21:45; Stop 10/30/20 at 21:46; Status DC Ceftriaxone Sodium (Rocephin) 1 gm 1X ONCE IVP Last administered on 10/30/20at 23:37; Start 10/30/20 at 23:15; Stop 10/30/20 at 23:16; Status DC Azithromycin 250 ml @ 250 mls/hr 1X ONCE IV Last administered on 10/30/20at 23:37; Start 10/30/20 at 23:15; Stop 10/31/20 at 00:14; Status DC Ondansetron HCl (Zofran) 4 mg PRN Q8HRS PRN IVP NAUSEA/VOMITING; Start 10/31/20 at 00:00; Stop 10/31/20 at 23:59 Sodium Chloride 1,000 ml @ 75 mls/hr [id number] IV Last administered on 10/31/20at 02:33; Start 10/31/20 at 00:00; Stop 10/31/20 at 23:59 Albuterol/ Ipratropium (Duoneb) 3 ml RTQID NEB ; Start 10/31/20 at 08:00; Stop 11/01/20 at 07:59 Active Scripts Active Calcium Carbonate 200 Mg Tab.chew 500 Mg PO PRN Q3HRS PRN 14 Days Acetaminophen 325 Mg Tablet 650 Mg PO PRN Q6HRS PRN 30 Days Amlodipine Besylate 5 Mg Tablet 5 Mg PO DAILY 30 Days Reported Aspirin 81 Mg Tab.chew 1 Tab PO DAILY Proventil Hfa (Albuterol Sulfate) 6.7 Gm Hfa.aer.ad 2 Puff INH PRN Q6HRS PRN Dyazide 37.5-25 Capsule (Triamterene/Hydrochlorothiazid) 1 Each Capsule 1 Cap PO DAILY Allergies Allergies: Coded Allergies: No Known Drug Allergies (Unverified , 09/12/19) ROS Review of System Constitutional: Denies fever or chills. [] Eyes: Denies change in visual acuity. [] HENT: Denies nasal congestion or sore throat. [] Respiratory: Positive for cough and trouble breathing. Cardiovascular: Denies chest pain or edema. [] GI: Denies abdominal pain, nausea, vomiting, bloody stools or diarrhea. [] : Denies dysuria. [] Musculoskeletal: Denies back pain or joint pain. [] Integument: Denies rash. [] Neurologic: Denies headache, focal weakness or sensory changes. [] Endocrine: Denies polyuria or polydipsia. [] Lymphatic: Denies swollen glands. [] Psychiatric: Denies depression or anxiety. [] 14 PT ROS OTHERWISE NEg 11-03 Continue supplemental oxygen to keep sats above 90% on 3 liters nc [facility] advised to quit smoking for ever Continue DuoNeb and ICS, nebulizer, Pulmicort. for home symbicort 160/ 2 p bid rinse mouth after use albuterol prn Continue empiric antibiotics azithromycin PFTs as an outpatient DVT/GI PPX Discussed with RN, pt ct chest today 11-02 add iv solumedrol 60 mg q 8 hrs pulm consult Vitals Vitals Vital Signs Date Time Temp Pulse Resp B/P (MAP) Pulse Ox O2 Delivery O2 Flow Rate FiO2 11/03/20 08:43 87 167/81 11/03/20 07:00 97.6 20 97 Nasal Cannula 97.6 11/02/20 20:19 2.0 Physical Exam Physical Exam Constitutional: Well developed, well nourished, no acute distress, non-toxic appearance. [] HENT: Normocephalic, atraumatic, bilateral external ears normal, oropharynx moist, no oral exudates, nose normal. [] Eyes: PERRLA, EOMI, conjunctiva normal, no discharge. [] Neck: Normal range of motion, no tenderness, supple, no stridor. [] Cardiovascular:Heart rate regular rhythm, no murmur [] Lungs & Thorax: Bilateral breath sounds with wheezing diffusely to auscultation. Abdomen: Bowel sounds normal, soft, no tenderness, no masses, no pulsatile masses. [] Skin: Warm, dry, no erythema, no rash. [] Back: No tenderness, no CVA tenderness. [] Extremities: No tenderness, no cyanosis, no clubbing, ROM intact, no edema. [] Neurologic: Alert and oriented X 3, normal motor function, normal sensory function, no focal deficits noted. [] Psychologic: Affect normal, judgement normal, General: Cooperative Abdomen: Soft Rectal Exam: not examined PELVIC: Examination not indicated Extremities: No cyanosis Neuro: Normal speech, Cranial nerves 3-12 NL General: Alert, Oriented X3, Cooperative, No acute distress Heart: Regular rate Lungs: Wheezing, Other Abdomen: Normal bowel sounds, Soft Extremities: No cyanosis Labs LABS CT THORAX WO INDICATION: PNEUMONIA COMPARISON STUDY: 11/01/2020. TECHNIQUE: Unenhanced axial images were obtained through the lungs and upper abdomen. Coronal and sagittal multiplanar reconstructions were also obtained. PQRS compliance statement: One or more of the following individualized dose reduction techniques were utilized for this examination: 1. Automated exposure control 2. Adjustment of the mA and/or kV according to patient size 3. Use of iterative reconstruction technique FINDINGS: Lungs and Airways: No pulmonary mass or consolidation. Right lower lobe 8 mm nodule (series 3 image 48). Severe emphysema. Right Bochdalek hernia. Normal central airways. Pleura: The pleural spaces are normal. Heart and Mediastinum: The visualized thyroid gland is normal in size and attenuation. No axillary or supraclavicular lymphadenopathy. No mediastinal, hilar or retrocrural lymphadenopathy. Normal cardiac size. No pericardial effusion. Coronary artery atherosclerotic disease. Atherosclerosis of the thoracic aorta. Abdomen: The visualized abdominal organs demonstrate no abnormality. Bones and Soft Tissues: Mild right convex thoracic curvature. IMPRESSION: 1. No consolidation. 2. Right lower lobe 8 mm nodule. Recommend three-month follow-up chest CT to as sess stability, given risk factors. This nodule may be below size threshold for PET sensitivity. 3. Severe centrilobular emphysema. 4. Coronary artery atherosclerotic disease. Electronically signed by: Daniel Rousseau MD (11/03/2020 9:57 AM) [id number] DICTATED and SIGNED BY: DANIEL ROUSSEAU MD DATE: 11/03/20 [id number] Assessment and Plan Assessmemt and Plan Problems Medical Problems: (1) COPD with exacerbation Status: Acute (2) Person under investigation for COVID-19 Status: Acute (3) Pneumonia Status: Acute Comment Review of Relevant I have reviewed the following items cele (where applicable) has been applied. Labs Microbiology 10/31/20 Blood Culture - Preliminary, Resulted NO GROWTH AFTER 3 DAYS Medications Current Medications Albuterol/ Ipratropium (Duoneb) 3 ml 1X ONCE NEB Last administered on 10/30/20at 21:45; Start 10/30/20 at 21:45; Stop 10/30/20 at 21:46; Status DC Methylprednisolone Sodium Succinate (SOLU-Medrol 125MG VIAL) 125 mg 1X ONCE IV Last administered on 10/30/20at 21:48; Start 10/30/20 at 21:45; Stop 10/30/20 at 21:46; Status DC Ceftriaxone Sodium (Rocephin) 1 gm 1X ONCE IVP Last administered on 10/30/20at 23:37; Start 10/30/20 at 23:15; Stop 10/30/20 at 23:16; Status DC Azithromycin 250 ml @ 250 mls/hr 1X ONCE IV Last administered on 10/30/20at 23:37; Start 10/30/20 at 23:15; Stop 10/31/20 at 00:14; Status DC Ondansetron HCl (Zofran) 4 mg PRN Q8HRS PRN IVP NAUSEA/VOMITING; Start 10/31/20 at 00:00; Stop 10/31/20 at 16:18; Status DC Sodium Chloride 1,000 ml @ 75 mls/hr [id number] IV Last administered on 10/31/20at 13:20; Start 10/31/20 at 00:00; Stop 10/31/20 at 23:59; Status DC Albuterol/ Ipratropium (Duoneb) 3 ml RTQID NEB ; Start 10/31/20 at 08:00; Stop 10/31/20 at 14:32; Status DC Azithromycin 250 ml @ 250 mls/hr DAILY07 IV ; Start 10/31/20 at 14:15; Status UNV Sodium Chloride (Normal Saline Flush) 3 ml QSHIFT PRN IV AFTER MEDS AND BLOOD DRAWS; Start 10/31/20 at 14:15 Ondansetron HCl (Zofran) 4 mg PRN Q4HRS PRN IV NAUSEA/VOMITING; Start 10/31/20 at 14:15 Acetaminophen (Tylenol) 650 mg PRN Q4HRS PRN PO TEMP OVER 100.4F OR MILD PAIN; Start 10/31/20 at 14:15 Al Hydroxide/Mg Hydroxide (Mylanta Plus Xs) 30 ml PRN DAILY PRN PO HEARTBURN / GAS; Start 10/31/20 at 14:15 Sodium Monofluorophosphate (Fleet Adult) 133 ml PRN DAILY PRN [place] CONSTIPATION; Start 10/31/20 at 14:15 Docusate Sodium (Colace) 100 mg PRN BID PRN PO HARD STOOLS; Start 10/31/20 at 14:15 Albuterol/ Ipratropium (Duoneb) 3 ml Q4HRS NEB Last administered on 11/02/20at 08:00; Start 10/31/20 at 14:15; Stop 11/02/20 at 10:54; Status DC Guaifenesin (Robitussin) 200 mg PRN Q4HRS PRN PO COUGH; Start 10/31/20 at 14:15 Enoxaparin Sodium (Lovenox 40mg Syringe) 40 mg Q24H SQ Last administered on 11/02/20at 15:00; Start 10/31/20 at 15:00 Amlodipine Besylate (Norvasc) 5 mg DAILY PO Last administered on 11/03/20at 08:43; Start 10/31/20 at 15:00 Aspirin (Aspirin Chewable) 81 mg DAILY PO Last administered on 11/03/20at 08:42; Start 10/31/20 at 15:00 Calcium Carbonate/ Glycine (Tums) 500 mg PRN Q3HRS PRN PO UPSET STOMACH; Start 10/31/20 at 14:15 Non-Formulary Medication (Albuterol Sulfate (Proventil Hfa)) 2 puff PRN Q6HRS PRN INH SHORTNESS OF BREATH; Start 10/31/20 at 14:15; Status UNV Triamterene/HCTZ (Maxzide 37.5/ 25mg) 1 tab DAILY PO Last administered on 11/03/20at 08:42; Start 10/31/20 at 15:00 Azithromycin 500 mg/Sodium Chloride 250 ml @ 250 mls/hr Q24H IV Last administered on 11/01/20at 15:32; Start 10/31/20 at 15:00; Stop 11/01/20 at 19:37; Status DC Albuterol Sulfate (Ventolin Neb Soln) 2.5 mg PRN Q6HRS PRN NEB SHORTNESS OF BREATH; Start 10/31/20 at 14:30; Stop 11/01/20 at 12:50; Status DC Albuterol Sulfate (Ventolin Hfa) 1 puff PRN Q6HRS PRN INH SHORTNESS OF BREATH; Start 10/31/20 at 15:30 Lactobacillus Rhamnosus (Culturelle) 1 cap BID PO Last administered on 11/03/20at 08:42; Start 11/01/20 at 21:00 Azithromycin (Zithromax) 500 mg DAILY PO Last administered on 11/03/20at 08:42; Start 11/02/20 at 09:00 Methylprednisolone Sodium Succinate (SOLU-Medrol 125MG VIAL) 60 mg Q8HRS IV ; Start 11/02/20 at 14:00; Stop 11/02/20 at 17:34; Status DC Prednisone (Prednisone) 40 mg DAILY PO Last administered on 11/03/20at 08:42; Start 11/02/20 at 18:00 Active Scripts Active Calcium Carbonate 200 Mg Tab.chew 500 Mg PO PRN Q3HRS PRN 14 Days Acetaminophen 325 Mg Tablet 650 Mg PO PRN Q6HRS PRN 30 Days Amlodipine Besylate 5 Mg Tablet 5 Mg PO DAILY 30 Days Reported Aspirin 81 Mg Tab.chew 1 Tab PO DAILY Proventil Hfa (Albuterol Sulfate) 6.7 Gm Hfa.aer.ad 2 Puff INH PRN Q6HRS PRN Dyazide 37.5-25 Capsule (Triamterene/Hydrochlorothiazid) 1 Each Capsule 1 Cap PO DAILY Vitals/I & O Vital Sign - Last 24 Hours 11/02/20 11/02/20 11/02/20 11/02/20 11:00 15:00 19:00 20:19 Temp 96.1 98.0 97.6 96.1 98.0 97.6 Pulse 94 89 84 Resp 20 20 20 B/P (MAP) 165/101 (122) 134/76 (95) 147/89 (108) Pulse Ox 94 96 96 O2 Delivery Nasal Cannula Nasal Cannula Nasal Cannula Nasal Cannula O2 Flow Rate 2.0 11/02/20 11/03/20 11/03/20 11/03/20 23:00 04:33 07:00 08:43 Temp 97.5 97.6 97.6 97.5 97.6 97.6 Pulse 89 88 87 87 Resp 20 B/P (MAP) 121/97 (105) 153/102 (119) 167/81 (109) 167/81 Pulse Ox 99 98 97 O2 Delivery Nasal Cannula Nasal Cannula Nasal Cannula Intake and Output 11/02/20 11/02/20 11/03/20 15:00 23:00 07:00 Intake Total 600 ml 300 ml Balance 600 ml 300 ml Justicifation of Admission Dx: Justifications for Admission: Justification of Admission Dx: No LU KEARNS MD Nov 03, 2020 10:49
[2020-11-03 11:00] VITALS: BP 136/86
[2020-11-03] MEDS: ENOXAPARIN 40 MG/0.4 ML SYRINGE. SQ SCH (14:43)
[2020-11-03 15:00] VITALS: BP 144/85
[2020-11-03 16:51] LABS: BASE EXCESS COOX 6 mmol/L (-3-3); HCO3 COOX 32 mmol/L (21-28); METHEMOGLOBIN 0.4 % (0.0-1.9); OXYHEMOGLOBIN 94.3 %; PCO2 COOX 49 mmHg (35-46); PO2 COOX 72 mmHg (65-108); SAT O2 COOX 95 % (92-99)
[2020-11-03 19:00] VITALS: BP 148/79
[2020-11-03] MEDS ORDERED: BUDESONIDE 0.5 MG/2 ML NEBU. NEB SCH (20:00)
[2020-11-03 23:00] VITALS: BP 141/81
[2020-11-04 06:48] LABS: BASO % 0 % (0-3); EOS # 0.4 x10^3/uL (0.0-0.7); EOS % 3 % (0-3); HEMOGLOBIN 14.3 g/dL (13.0-17.5); LYMPH # 3.1 x10^3/uL (1.0-4.8); LYMPH % 25 % (24-48); MEAN CORPUSCULAR HEMOGLOBIN 30 pg (25-35); MEAN CORPUSCULAR HGB CONC 34 g/dL (31-37); MEAN CORPUSCULAR VOLUME 89 fL (79-100); MONO # 1.1 x10^3/uL (0.0-1.1); MONO % 9 % (0-9); NEUT # 7.6 x10^3/uL (1.8-7.7); NEUT % 62 % (31-73); PLATELET COUNT 213 x10^3/uL (140-400); RED BLOOD COUNT 4.73 x10^6/uL (4.30-5.70); RED CELL DISTRIBUTION WIDTH 14.2 % (11.5-14.5); WHITE BLOOD COUNT 12.2 x10^3/uL (4.0-11.0)
[2020-11-04 07:38] LABS: CALCIUM 9.4 mg/dL (8.5-10.1); CREATININE 1.1 mg/dL (0.7-1.3); GFR 78.5; POTASSIUM 4.4 mmol/L (3.5-5.1)
[2020-11-04] MEDS: LACTOBACILLUS RHAMNOSUS GG 1 CAPSULE. PO SCH (08:52)
[2020-11-04] MEDS: TRIAMTERENE/HCTZ 37.5/25MG TABLET. PO SCH (08:52)
[2020-11-04 08:53] VITALS: BP 141/81
[2020-11-04] MEDS: predniSONE 20 MG TABLET PO SCH (08:53)
[2020-11-04] MEDS: ASPIRIN CHEWABLE 81 MG TABLET. PO SCH (08:53)
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
--- NOTE | 2020-11-04 09:27 | PDOC3 ---
Discharge Summary Visit Information Date of Admission: Oct 31, 2020 Date of Discharge: Nov 04, 2020 Admitting Diagnosis: COPD Exacerbation Final Diagnosis Problems Medical Problems: (1) COPD with exacerbation Status: Acute (2) Person under investigation for COVID-19 Status: Acute (3) Pneumonia Status: Acute Brief Hospital Course Allergies Allergies Coded Allergies Type Severity Reaction Last Updated Verified No Known Drug Allergies 09/12/19 No Vital Signs Vital Signs Date Time Temp Pulse Resp B/P (MAP) Pulse Ox O2 Delivery O2 Flow Rate FiO2 11/04/20 08:53 76 141/81 11/04/20 08:00 Nasal Cannula 2.0 11/03/20 23:00 97.7 20 100 97.7 Lab Results Laboratory Tests Test 11/03/20 09:24 11/03/20 16:45 11/04/20 05:10 11/04/20 05:15 White Blood Count 8.8 x10^3/uL (4.0-11.0) 12.2 x10^3/uL (4.0-11.0) Red Blood Count 4.79 x10^6/uL (4.30-5.70) 4.73 x10^6/uL (4.30-5.70) Hemoglobin 14.4 g/dL (13.0-17.5) 14.3 g/dL (13.0-17.5) Hematocrit 42.4 % (39.0-53.0) 42.0 % (39.0-53.0) Mean Corpuscular Volume 89 fL (79-100) 89 fL (79-100) Mean Corpuscular Hemoglobin 30 pg (25-35) 30 pg (25-35) Mean Corpuscular Hemoglobin Concent 34 g/dL (31-37) 34 g/dL (31-37) Red Cell Distribution Width 14.4 % (11.5-14.5) 14.2 % (11.5-14.5) Platelet Count 223 x10^3/uL (140-400) 213 x10^3/uL (140-400) Neutrophils (%) (Auto) 73 % (31-73) 62 % (31-73) Lymphocytes (%) (Auto) 21 % (24-48) 25 % (24-48) Monocytes (%) (Auto) 5 % (0-9) 9 % (0-9) Eosinophils (%) (Auto) 1 % (0-3) 3 % (0-3) Basophils (%) (Auto) 0 % (0-3) 0 % (0-3) Neutrophils # (Auto) 6.4 x10^3/uL (1.8-7.7) 7.6 x10^3/uL (1.8-7.7) Lymphocytes # (Auto) 1.8 x10^3/uL (1.0-4.8) 3.1 x10^3/uL (1.0-4.8) Monocytes # (Auto) 0.5 x10^3/uL (0.0-1.1) 1.1 x10^3/uL (0.0-1.1) Eosinophils # (Auto) 0.1 x10^3/uL (0.0-0.7) 0.4 x10^3/uL (0.0-0.7) Basophils # (Auto) 0.0 x10^3/uL (0.0-0.2) 0.0 x10^3/uL (0.0-0.2) O2 Saturation 95 % (92-99) Arterial Blood pH 7.43 (7.35-7.45) Arterial Blood pCO2 at Patient Temp 49 mmHg (35-46) Arterial Blood pO2 at Patient Temp 72 mmHg (65-108) Arterial Blood HCO3 32 mmol/L (21-28) Arterial Blood Base Excess 6 mmol/L (-3-3) Oxyhemoglobin 94.3 % Methemoglobin 0.4 % (0.0-1.9) Carbon Monoxide, Quantitative 0.1 % (0.0-1.9) FiO2 2l nc Sodium Level 140 mmol/L (136-145) Potassium Level 4.4 mmol/L (3.5-5.1) Chloride Level 101 mmol/L (98-107) Carbon Dioxide Level 36 mmol/L (21-32) Anion Gap 3 (6-14) Blood Urea Nitrogen 15 mg/dL (8-26) Creatinine 1.1 mg/dL (0.7-1.3) Estimated GFR (Cockcroft-Gault) 78.5 Glucose Level 95 mg/dL (70-99) Calcium Level 9.4 mg/dL (8.5-10.1) Laboratory Tests Test 11/03/20 16:45 11/04/20 05:10 11/04/20 05:15 O2 Saturation 95 % (92-99) Arterial Blood pH 7.43 (7.35-7.45) Arterial Blood pCO2 at Patient Temp 49 mmHg (35-46) Arterial Blood pO2 at Patient Temp 72 mmHg (65-108) Arterial Blood HCO3 32 mmol/L (21-28) Arterial Blood Base Excess 6 mmol/L (-3-3) Oxyhemoglobin 94.3 % Methemoglobin 0.4 % (0.0-1.9) Carbon Monoxide, Quantitative 0.1 % (0.0-1.9) FiO2 2l nc White Blood Count 12.2 x10^3/uL (4.0-11.0) Red Blood Count 4.73 x10^6/uL (4.30-5.70) Hemoglobin 14.3 g/dL (13.0-17.5) Hematocrit 42.0 % (39.0-53.0) Mean Corpuscular Volume 89 fL (79-100) Mean Corpuscular Hemoglobin 30 pg (25-35) Mean Corpuscular Hemoglobin Concent 34 g/dL (31-37) Red Cell Distribution Width 14.2 % (11.5-14.5) Platelet Count 213 x10^3/uL (140-400) Neutrophils (%) (Auto) 62 % (31-73) Lymphocytes (%) (Auto) 25 % (24-48) Monocytes (%) (Auto) 9 % (0-9) Eosinophils (%) (Auto) 3 % (0-3) Basophils (%) (Auto) 0 % (0-3) Neutrophils # (Auto) 7.6 x10^3/uL (1.8-7.7) Lymphocytes # (Auto) 3.1 x10^3/uL (1.0-4.8) Monocytes # (Auto) 1.1 x10^3/uL (0.0-1.1) Eosinophils # (Auto) 0.4 x10^3/uL (0.0-0.7) Basophils # (Auto) 0.0 x10^3/uL (0.0-0.2) Sodium Level 140 mmol/L (136-145) Potassium Level 4.4 mmol/L (3.5-5.1) Chloride Level 101 mmol/L (98-107) Carbon Dioxide Level 36 mmol/L (21-32) Anion Gap 3 (6-14) Blood Urea Nitrogen 15 mg/dL (8-26) Creatinine 1.1 mg/dL (0.7-1.3) Estimated GFR (Cockcroft-Gault) 78.5 Glucose Level 95 mg/dL (70-99) Calcium Level 9.4 mg/dL (8.5-10.1) Brief Hospital Course 74-year-old -Aust[place] male presenting for COPD exacerbation. ACUTE COPD exacerbation, acute hypoxic respiratory failure, tobacco abuse -Patient with frequent admissions for COPD exacerbations -Was given breathing treatments and Solu-Medrol in the emergency room, with improvement in symptoms -We will start patient on oral prednisone burst -DuoNebs scheduled -Educated patient on the importance of outpatient follow-up and medication compliance Alcohol abuse, drug abuse discuss with patient if he desires treatment in this regard. Right lower lobe 8 mm nodule/ three-month follow-up chest CT to assess stability, given risk factors. nodule below size threshold for PET sensitivity. Severe centrilobular emphysema ADMIT Continue supplemental oxygen to keep sats above 90% on 3 liters nc 6 min walk at DC advised to quit smoking for ever Continue DuoNeb and ICS, nebulizer, Pulmicort. for home symbicort 160/ 2 p bid rinse mouth after use albuterol prn Continue empiric antibiotics azithromycin PFTs as an outpatient DVT/GI PPX Discussed with RN, pt ct chest today 11-02 add iv solumedrol 60 mg q 8 hrs 38 min pt exam, chart review, > 50% of time spent with exam, chart review, pt care coordination History of Present Illness History of Present Illness Identification/Chief Complaint Chief Complaint SOA, COUGH History of Present Illness History of Present Illness 75-year-old -Aust[place] male presented to ER for COPD exacerbation. ACUTE COPD exacerbation, acute hypoxic respiratory failure, tobacco abuse frequent admissions for COPD exacerbations ymptoms have been going on for 1 week. Patient has history of COPD, he is on 2 L oxygen at home. denies any chest pain, / abdominal pain, no nausea or vomiting. was vaccinated for COVID- 19 already. Upon arrival to er his oxygen saturation was in the 80% DuoNebs scheduled Educated patient on the importance of outpatient follow-up and medication compliance hx Alcohol abuse, drug abuse 11/04 Patient seen and examined at bedside. Discharging today. Spent 45 minutes on discharge planning. 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 Discharge Information Condition at Discharge: Improved Disposition/Orders: D/C to Home Scheduled Amlodipine Besylate (Amlodipine Besylate) 5 Mg Tablet, 5 MG PO DAILY for BLOOD PRESSURE for 30 Days, #30 Prescribed by: LU KEARNS MD on 07/11/201343 Last Taken: Unknown Dose on 10/30/20 Last Action: Continued on 10/31/201406 by LU KEARNS MD Aspirin (Aspirin) 81 Mg Tab.chew, 1 TAB PO DAILY for heart health, #30 Ref 3 (Reported) Entered as Reported by: DEEPA LOPEZ on 07/10/20 0855 Last Action: Continued on 10/31/201406 by LU KEARNS MD Triamterene/Hydrochlorothiazid (Dyazide 37.5-25 Capsule) 1 Each Capsule, 1 CAP PO DAILY for BP CONTROL, (Reported) Entered as Reported by: ANTHONY GONZALEZ on 09/11/191701 Last Taken: Unknown Dose on 10/30/20 Last Action: Converted on 10/31/201406 by LU KEARNS MD Scheduled PRN Acetaminophen (Acetaminophen) 325 Mg Tablet, 650 MG PO PRN Q6HRS PRN for He adaches, Temp > 101.5F for 30 Days, #60 Prescribed by: LU KEARNS MD on 07/11/201343 Albuterol Sulfate (Proventil Hfa) 6.7 Gm Hfa.aer.ad, 2 PUFF INH PRN Q6HRS PRN for SHORTNESS OF BREATH, (Reported) Entered as Reported by: ANTHONY GONZALEZ on 09/11/191701 Last Taken: Unknown Dose on 10/30/20 Last Action: Converted on 10/31/201406 by LU KEARNS MD Calcium Carbonate (Calcium Carbonate) 200 Mg Tab.chew, 500 MG PO PRN Q3HRS PRN for UPSET STOMACH for 14 Days, #30 Prescribed by: LU KEARNS MD on 07/11/201343 Last Action: Continued on 10/31/201406 by LU KEARNS MD Justicifation of Admission Dx: Justifications for Admission: Justification of Admission Dx: JULIENNE Wallace MD Nov 04, 2020 09:27
--- NOTE | 2020-11-04 11:36 | NUR ---
Discharge Note: ALEJANDRINA LYNN [place] Discharge instructions and discharge home medications reviewed with Patient and a copy given. All questions have been answered and understanding verbalized. The following instructions and handouts were given: follow up instructions Discontinued lines and drains: No IV present. Patient discharged to home with self care via sig other.
== END 2020-11-04 09:55 | disposition home or self-care (01) | DRG 193 ==
LOC: ER 21:23 → ED HOLD 10-31 00:07 → 5 NORTH 10-31 01:07
PROVIDERS: ADMIT Internal Medicine; ATTEND Internal Medicine
DX: J18.9 Pneumonia, unspecified organism (principal); J96.01 Acute respiratory failure with hypoxia; E78.00 Pure hypercholesterolemia, unspecified; E78.5 Hyperlipidemia, unspecified; F10.10 Alcohol abuse, uncomplicated; F17.200 Nicotine dependence, unspecified, uncomplicated; I10 Essential (primary) hypertension; I25.10 Atherosclerotic heart disease of native coronary artery without angina pectoris; J43.2 Centrilobular emphysema; Z20.822 Contact with and (suspected) exposure to COVID-19; Z79.82 Long term (current) use of aspirin; Z79.899 Other long term (current) drug therapy; Z82.49 Family history of ischemic heart disease and other diseases of the circulatory system
CPT/HCPCS: 36415; 36600; 71045; 71250; 80048; 80053; 82805; 83605; 83735; 83880; 84484; 85025; 87040; 87426; 93005; 94640; 94760; 96365; 96375; J0456; J0696; J1650; J2930; J7030; J7050; J7512; U0003; U0005; 99285-25; G0378

== ENCOUNTER 2020-12-30 11:28 | Inpatient (IN) | payer MEDICARE, MEDICAID ==
[~2020-12-30] VITALS: Ht 200.7 cm; Wt 103.9 kg
--- NOTE | 2020-12-30 11:54 | PHYS DOC ---
Past Medical History Past Medical History: COPD, High Cholesterol, Hypertension Past Surgical History: Other Additional Past Surgical Histo: inguinal hernia repair 09/12/19 Smoking Status: Current Some Day Smoker Alcohol Use: Occasionally Drug Use: Cocaine, Marijuana, Methamphetamine General Adult EDM: Chief Complaint: SHORTNESS OF BREATH HPI: HPI: Patient is a 75 year old male who was brought in by EMS for dyspnea. He reports that he has felt this way since March of this year, and he is unable to articulate exactly how long he has been feeling worse recently. He does report a cough with white sputum. No changes in the sputum from baseline. Denies hemoptysis. He denies fever or chills. He denies chest pain. He denies leg pain or swelling. Denies dizziness, diaphoresis, syncope, focal weakness. He has a history of COPD and is chronically dependent on supplemental oxygen, 2 L per nasal cannula. He is saturating in the 90s on his usual 2 L currently. He reports he took his MDI inhaler at home today, without any relief. He has no t been prescribed any recent oral steroids. He reports compliance with all other medications. He continues to smoke tobacco. Review of Systems: Review of Systems: Constitutional: Denies fever or chills. [] HENT: Denies nasal congestion or sore throat. [] Respiratory: Reports dyspnea, wheezing and cough. Cardiovascular: Denies chest pain or edema. [] GI: Denies abdominal pain, nausea, vomiting Musculoskeletal: Denies back pain or joint pain. [] Neurologic: Denies headache, focal weakness or sensory changes. [] Psychiatric: Denies depression or anxiety. [] Heart Score: C/O Chest Pain: No Risk Factors: Risk Factors: DM, Current or recent (<one month) smoker, HTN, HLP, family history of CAD, obesity. Risk Scores: Score 0 - 3: 2.5% MACE over next 6 weeks - Discharge Home Score 4 - 6: 20.3% MACE over next 6 weeks - Admit for Clinical Observation Score 7 - 10: 72.7% MACE over next 6 weeks - Early Invasive Strategies Allergies: Allergies: Allergies Coded Allergies Type Severity Reaction Last Updated Verified No Known Drug Allergies 09/12/19 No Physical Exam: PE: Constitutional: Well developed, well nourished, no acute distress, non-toxic appearance. He is chronically ill-appearing. He is in mild respiratory distress. HENT: Normocephalic, atraumatic Eyes: Sclera are clear. Neck: Trachea is midline. No tenderness, full range of motion of the neck. Cardiovascular:Heart rate regular rhythm, was 2 radial and posterior tibial pulses bilaterally. No peripheral edema. He is warm and well-perfused appearing. Lungs & Thorax: Mild to moderate tachypnea, no retractions, speaks in full and clear sentences, diffuse inspiratory and expiratory wheezes bilaterally, coarse rhonchi bilaterally, no stridor, no cyanosis. Abdomen: Abdomen soft, nondistended, nontender to palpation. Skin: Warm, dry, no erythema, no rash. [] Back: No tenderness, no CVA tenderness. [] Extremities: No tenderness, no cyanosis, no clubbing, ROM intact, no edema. No calf tenderness. Neurologic: Alert and oriented X 3, normal motor function, no facial asymmetry, speech is clear and fluent, moves all 4 extremities equally. Psychologic: Flat affect. He is cooperative.[] EKG: EKG: EKG is interpreted at 1151 Rhythm is sinus tachycardia Rate is 111 bpm Occasional PVCs No STEMI Radiology/Procedures: Radiology/Procedures: IMAGING REPORT Signed PATIENT: AJIT LYNN ACCOUNT: [id number] : 1945 LOCATION: ER AGE: 75 SEX: M EXAM STATUS: PRE ER ORD. PHYSICIAN: RASHID BALTAZAR DO REASON: dyspnea PROCEDURE: PORTABLE CHEST 1V EXAM: XR CHEST 1V 12/30/2020 12:03 PM CLINICAL INDICATION: Dyspnea COMPARISON: CT chest 11/02/2020 and chest radiograph 11/01/2020 TECHNIQUE: AP view of the chest FINDINGS: The heart is normal in size. Lungs are hyperexpanded. No definite consolidation, pleural effusion, or pneumothorax. No acute osseous abnormality. IMPRESSION: Hyperexpanded lungs. No acute abnormality. Electronically signed by: Ama Shabazz MD (12/30/2020 12:42 PM) [id number] DICTATED and SIGNED BY: AMA SHABAZZ MD DATE: 12/30/20 [id number] Course & Med Decision Making: Course & Med Decision Making Pertinent Labs and Imaging studies reviewed. (See chart for details) DuoNeb and IV Solu-Medrol given. Albuterol nebulizer treatment given. He is resting comfortably. He is saturating in the mid 90s on 1 L nasal cannula. He normally wears 2 L per nasal cannula. He reports feeling much better. He is still wheezing, though it is significantly improved. He feels much better, and he feels comfortable with the plan for discharge home. I explained my recommendation to treat for COPD exacerbation. First dose of oral doxycycline is given. He has plenty of his regularly prescribed medication at home. He did admit that he had not taken his amlodipine yet today, so he was given his usual dose of 5 mg here in the ER. He has a scheduled appointment later this month to see pulmonology. He admits that he is frustrated with his current situation, and he has frequent anxiety issues regarding this diagnosis. He reports that he was under the impression that perhaps his oxygen dependence and COPD were reversible. I explained that this is very unlikely, and his condition is chronic and progressive and symptoms like this will continue most likely. He nonetheless feels comfortable to plan for discharge home. Strict return precautions are given. When the patient got up to be discharged, he became anxious and upset. His wheezing worsened. I ordered another DuoNeb treatment. Per the nurses, his oxy gen saturation dropped to the 80s, despite being on 2 L. After the third breathing treatment, he sat back down to rest, and he was placed on his regular 2 L, and he is saturating in the low to mid 90s. He overall feels much better he is still wheezing, but he is clinically improved. The decision was made that he should be admitted to the hospital. He is comfortable with this plan. He is still quite motivated to be discharged soon however. He is accepted for admission by Dr. Wooten. Marta Disclaimer: Marta Disclaimer: This electronic medical record was generated, in whole or in part, using a voice recognition dictation system. Departure Departure Impression: Primary Impression: COPD exacerbation Additional Impression: Chronic respiratory failure with hypoxia, on home oxygen therapy Disposition: ADMITTED INPATIENT Admitting Physician: PAPI Condition: IMPROVED Referrals: AJIT CARTER MD (PCP) Patient Instructions: Chronic Obstructive Pulmonary Disease Exacerbation Additional Instructions: Take the full course of antibiotics and prednisone. Continue to use your inhaled steroids and nebulizer treatments as directed. Return immediately for chest pain, refractory or more severe wheezing or shortness of breath, uncontrolled vomiting, dehydration, weakness or any other concerns. Please keep your scheduled appointment with your pulmonary doctor as well as with your [facility]. Scripts Prednisone (PREDNISONE) 50 Mg Tablet 1 TAB PO DAILY for 5 Days, #5 TAB Prov: RASHID BALTAZAR DO 12/30/20 Doxycycline Hyclate (DOXYCYCLINE HYCLATE) 100 Mg Tablet 1 TAB PO BID, #20 TAB Prov: RASHID BALTAZAR DO 12/30/20 Albuterol Sulfate (PROAIR HFA INHALER) 8.5 Gm Hfa.aer.ad 2 PUFF IH PRN Q4-6HRS PRN for wheezing, #1 INHALER 2 Refills Prov: RASHID BALTAZAR DO 12/30/20 RASHID BALTAZAR DO Dec 30, 2020 11:54
[2020-12-30] MEDS ORDERED: methylPREDNISolone SOD SUCC PF 125 MG/2 ML VIAL. IV ONE (12:00)
[2020-12-30] MEDS ORDERED: IPRATRPIUM/ALBUTEROL 0.5/2.5MG 3 ML NEBU. NEB ONE ×2 (12:00→15:45)
[2020-12-30 12:18] LABS: BASO % 0 % (0-3); EOS # 0.4 x10^3/uL (0.0-0.7); EOS % 5 % (0-3); HEMATOCRIT 45.8 % (39.0-53.0); HEMOGLOBIN 15.3 g/dL (13.0-17.5); LYMPH # 2.3 x10^3/uL (1.0-4.8); LYMPH % 28 % (24-48); MEAN CORPUSCULAR HEMOGLOBIN 30 pg (25-35); MEAN CORPUSCULAR HGB CONC 33 g/dL (31-37); MEAN CORPUSCULAR VOLUME 90 fL (79-100); MONO # 0.6 x10^3/uL (0.0-1.1); MONO % 7 % (0-9); NEUT # 4.8 x10^3/uL (1.8-7.7); NEUT % 60 % (31-73); PLATELET COUNT 237 x10^3/uL (140-400); RED BLOOD COUNT 5.11 x10^6/uL (4.30-5.70); RED CELL DISTRIBUTION WIDTH 14.2 % (11.5-14.5)
[2020-12-30 12:26] LABS: CALCIUM 9.3 mg/dL (8.5-10.1); GFR 87.7; POTASSIUM 4.2 mmol/L (3.5-5.1)
[2020-12-30 12:32] LABS: ALBUMIN 3.6 g/dL (3.4-5.0); ALBUMIN/GLOBULIN RATIO 0.9 (1.0-1.7); MAGNESIUM 2.2 mg/dL (1.8-2.4); TOTAL BILIRUBIN 0.2 mg/dL (0.2-1.0); TOTAL PROTEIN 7.6 g/dL (6.4-8.2)
[2020-12-30 12:43] LABS: INFLUENZA A PATIENT NEGATIVE (NEGATIVE); INFLUENZA B PATIENT NEGATIVE (NEGATIVE)
--- NOTE | 2020-12-30 12:44 | RAD ---
EXAM: XR CHEST 1V 12/30/2020 12:03 PM CLINICAL INDICATION: Dyspnea COMPARISON: CT chest 11/02/2020 and chest radiograph 11/01/2020 TECHNIQUE: AP view of the chest FINDINGS: The heart is normal in size. Lungs are hyperexpanded. No definite consolidation, pleural e ffusion, or pneumothorax. No acute osseous abnormality. IMPRESSION: Hyperexpanded lungs. No acute abnormality. Electronically signed by: Ama Shabazz MD (12/30/2020 12:42 PM) [id number]
[2020-12-30] MEDS ORDERED: ACETAMINOPHEN 500 MG TABLET PO ONE (13:30)
[2020-12-30] MEDS ORDERED: DOXYCYCLINE HYCLATE 100 MG TABLET PO ONE (14:00)
[2020-12-30] MEDS ORDERED: ALBUTEROL SULFATE 2.5 MG/3 ML NEBU. NEB ONE (14:00)
[2020-12-30 14:45] LABS: BILIRUBIN,URINE NEGATIVE (NEG); CLARITY,URINE CLEAR; COLOR,URINE YELLOW; NITRITE,URINE NEGATIVE (NEG); PROTEIN,URINE NEGATIVE (NEG-TRACE); UROBILINOGEN,URINE 0.2 mg/dL (0.2 mg/dL)
[2020-12-30] MEDS ORDERED: DOXY100T PO ×2 (14:46→14:54)
[2020-12-30] MEDS ORDERED: PRED50TA PO ×2 (14:46→14:55)
[2020-12-30] MEDS ORDERED: ALBU2.5V8 IH ×2 (14:46→14:51)
[2020-12-30 14:50] LABS: HYALINE CASTS, URINE MODERATE /HPF
[2020-12-30 14:51] LABS: BACTERIA,URINE 0 /HPF (0-FEW)
[2020-12-30] MEDS ORDERED: ALPRAZolam 0.5 MG TABLET PO ONE (15:00)
[2020-12-30] MEDS ORDERED: IV NORMAL SALINE 1000ML BAG 1,000 ML IV ONE (16:30)
[2020-12-30] MEDS ORDERED: IPRATRPIUM/ALBUTEROL 0.5/2.5MG 3 ML NEBU. NEB PRN (16:30)
[2020-12-30] MEDS ORDERED: ONDANSETRON PF 4 MG/2 ML VIAL. IVP PRN (16:30)
[2020-12-30] MEDS ORDERED: ACETAMINOPHEN 325 MG TABLET. PO PRN ×2 (16:30→17:15)
[2020-12-30] MEDS ORDERED: NON FORMULARY ITEM (Albuterol Sulfate (Proventil Hfa) 2 PUFF) INH PRN (17:15)
[2020-12-30] MEDS ORDERED: CALCIUM CARBONATE 500 MG TAB.CHEW PO PRN (17:15)
[2020-12-30] MEDS: methylPREDNISolone SOD SUCC PF 125 MG/2 ML VIAL. IV SCH (17:59)
[2020-12-30] MEDS: ALBUTEROL SULFATE 2.5 MG/3 ML NEBU. NEB PRN ×2 (18:13→21:00)
--- NOTE | 2020-12-30 18:45 | HP ---
DATE OF SERVICE: 12/30/2020 ADMIT DATE: 12/30/2020 CHIEF COMPLAINT: Shortness of breath. HISTORY OF PRESENT ILLNESS: The patient is a pleasant 75-year-old male with multiple comorbidities. Most importantly, he smokes too much. He states he quit smoking 8 months ago, but then again, he tells me that he is smoking with his coffee in the mornings. He has also done a lot of drugs in the past, although he states once in a while he will still dabble in those as well. Basically today, he presented with shortness of breath and cough. He has a COPD exacerbation. They tried to get him feeling better and get him home but then he got agitated. I discussed the case with ER physician. We are going to admit the patient treating for his COPD and respiratory failure. PAST MEDICAL HISTORY: Hyperlipidemia, hypertension, COPD, inguinal hernia repair, tobacco abuse, cocaine, marijuana, and methamphetamine abuse; psychiatric issues. ALLERGIES: None. FAMILY HISTORY: Diabetes. SOCIAL HISTORY: He smokes, drinks, and takes drugs, although he states he is trying to quit smoking. He only smoked in the morning with his coffee. He is trying to quit doing drugs. He dabbles in them periodically. He has a girlfriend named Stephanie. MEDICATIONS: Reviewed. Please refer to the MRAD. REVIEW OF SYSTEMS: GENERAL: No history of weight change, weakness or fevers. SKIN: No bruising, hair changes or rashes. EYES: No blurred, double or loss of vision. NOSE AND THROAT: No history of nosebleeds, hoarseness or sore throat. PULMONARY: He complains of shortness of breath and cough. HEART: No history of palpitations, chest pain or shortness of breath on exertion. GASTROINTESTINAL: Denies changes in appetite, nausea, vomiting, diarrhea or constipation. GENITOURINARY: No history of frequency, urgency, hesitancy or nocturia. NEUROLOGIC: Denies history of numbness, tingling, tremor or weakness. PSYCHIATRIC: No history of panic, anxiety or depression. ENDOCRINE: No history of heat or cold intolerance, polyuria or polydipsia. EXTREMITIES: Denies muscle weakness, joint pain, pain on walking or stiffness. PHYSICAL EXAMINATION: VITALS: Within normal limits and are stable. GENERAL: No apparent distress. Alert and oriented. HEENT: Normal cephalic atraumatic, external auditory canals are patent EYES: Extraocular muscles are intact, pupils are equally round and reactive to light and accommodation MUSCULOSKELETAL: Well developed, well nourished, good range of motion ENDOCRINE: No thyromegaly was palpated LYMPHATICS: No cervical chain or axillary nodes were noted HEMATOPOIETIC: No bruising NECK: Supple, no JVD, no thyromegaly was noted. LUNGS: Clear to auscultation in all lung pierce without rhonchi or wheezing. He has decreased breath sounds with crackles. HEART: RRR, S1, S2 present. Peripheral pulses intact, no obvious murmurs were noted. ABDOMEN: Soft, nontender. Positive bowel sounds no organomegaly, normal bowel sounds. EXTREMITIES: Without any cyanosis, clubbing, or edema. Pedal pulses intact, Homans sign is negative. NEUROLOGIC: Normal speech, normal tone. A and O x3, moves all extremities, no obvious focal deficits. He is somewhat agitated. PSYCHIATRIC: Normal affect, normal mood. Stable. SKIN: No ulcerations or rashes, good skin turgor, no jaundice. VASCULAR: Good capillary refill, neurovascular bundle appears to be intact. LABORATORY DATA: Hematology is normal. Electrolytes are normal other than a CO2 of 38. Urinalysis is negative. COVID testing is negative. IMAGING: Chest x-ray negative other than hyperexpanded lungs consistent with COPD. ASSESSMENT AND PLAN: Respiratory failure secondary to chronic obstructive pulmonary disease. The patient will be admitted. We will start steroids, breathing treatments, oxygen, home meds. DVT prophylaxis. Full code. If he does not do better in the next day or two, we will consider pulmonary consultation. TANNER/LUCRECIA/ANITRA DR: TANNER/shar TID: [id number]
[2020-12-30 21:15] VITALS: BP 148/112
[2020-12-30 23:00] VITALS: BP 141/79
[2020-12-31] MEDS: DOXYCYCLINE HYCLATE 100 MG TABLET PO SCH ×3 (00:33→20:52)
[2020-12-31] MEDS: methylPREDNISolone SOD SUCC PF 125 MG/2 ML VIAL. IV SCH ×3 (00:33→20:54)
[2020-12-31 03:00] VITALS: BP 160/82
[2020-12-31] MEDS: ALBUTEROL SULFATE 2.5 MG/3 ML NEBU. NEB PRN (04:44)
[2020-12-31 08:00] VITALS: BP 186/106
[2020-12-31] MEDS ORDERED: NON FORMULARY ITEM (Prednisone 1 TAB) PO SCH (09:00)
--- NOTE | 2020-12-31 09:17 | PDOC ---
PULMONARY PROGRESS NOTES DATE: 12/31/20 TIME: 09:17 Vitals Vital Signs Date Time Temp Pulse Resp B/P (MAP) Pulse Ox O2 Delivery O2 Flow Rate FiO2 12/31/20 08:00 97.2 113 20 186/106 (132) 91 97.2 12/31/20 04:44 Nasal Cannula 4.0 General: Alert, No acute distress Lungs: Wheezing, Other Cardiovascular: S1 Abdomen: Soft Extremities: No Edema Labs Laboratory Tests Test 12/30/20 11:40 12/30/20 12:14 12/30/20 12:15 12/30/20 14:30 White Blood Count 8.0 x10^3/uL (4.0-11.0) Red Blood Count 5.11 x10^6/uL (4.30-5.70) Hemoglobin 15.3 g/dL (13.0-17.5) Hematocrit 45.8 % (39.0-53.0) Mean Corpuscular Volume 90 fL (79-100) Mean Corpuscular Hemoglobin 30 pg (25-35) Mean Corpuscular Hemoglobin Concent 33 g/dL (31-37) Red Cell Distribution Width 14.2 % (11.5-14.5) Platelet Count 237 x10^3/uL (140-400) Neutrophils (%) (Auto) 60 % (31-73) Lymphocytes (%) (Auto) 28 % (24-48) Monocytes (%) (Auto) 7 % (0-9) Eosinophils (%) (Auto) 5 % (0-3) Basophils (%) (Auto) 0 % (0-3) Neutrophils # (Auto) 4.8 x10^3/uL (1.8-7.7) Lymphocytes # (Auto) 2.3 x10^3/uL (1.0-4.8) Monocytes # (Auto) 0.6 x10^3/uL (0.0-1.1) Eosinophils # (Auto) 0.4 x10^3/uL (0.0-0.7) Basophils # (Auto) 0.0 x10^3/uL (0.0-0.2) Sodium Level 145 mmol/L (136-145) Potassium Level 4.2 mmol/L (3.5-5.1) Chloride Level 102 mmol/L (98-107) Carbon Dioxide Level 38 mmol/L (21-32) Anion Gap 5 (6-14) Blood Urea Nitrogen 15 mg/dL (8-26) Creatinine 1.0 mg/dL (0.7-1.3) Estimated GFR (Cockcroft-Gault) 87.7 BUN/Creatinine Ratio 15 (6-20) Glucose Level 131 mg/dL (70-99) Calcium Level 9.3 mg/dL (8.5-10.1) Magnesium Level 2.2 mg/dL (1.8-2.4) Total Bilirubin 0.2 mg/dL (0.2-1.0) Aspartate Amino Transf (AST/SGOT) 26 U/L (15-37) Alanine Aminotransferase (ALT/SGPT) 38 U/L (16-63) Alkaline Phosphatase 63 U/L (46-116) Troponin I High Sensitivity 16 ng/L (4-75) HG-Hja-U-Type Natriuretic Peptide 72 pg/mL (0-449) Total Protein 7.6 g/dL (6.4-8.2) Albumin 3.6 g/dL (3.4-5.0) Albumin/Globulin Ratio 0.9 (1.0-1.7) SARS-CoV-2 RNA (ASAD) Negative (Negative) SARS-CoV-2 Antigen (Rapid) Negative (NEGATIVE) Influenza Type A Antigen Negative (NEGATIVE) Influenza Type B Antigen Negative (NEGATIVE) Urine Collection Type Unknown Urine Color Yellow Urine Clarity Clear Urine pH 5.0 (<5.0-8.0) Urine Specific [place] 1.025 (1.000-1.030) Urine Protein Negative mg/dL (NEG-TRACE) Urine Glucose (UA) Negative mg/dL (NEG) Urine Ketones (Stick) Negative mg/dL (NEG) Urine Blood Small (NEG) Urine Nitrite Negative (NEG) Urine Bilirubin Negative (NEG) Urine Urobilinogen Dipstick 0.2 mg/dL (0.2 mg/dL) Urine Leukocyte Esterase Negative (NEG) Urine RBC 6-10 /HPF (0-2) Urine WBC 1-4 /HPF (0-4) Urine Bacteria 0 /HPF (0-FEW) Urine Hyaline Casts Moderate /HPF Urine Mucus Mod /LPF Laboratory Tests Test 12/30/20 11:40 12/30/20 12:14 12/30/20 12:15 12/30/20 14:30 White Blood Count 8.0 x10^3/uL (4.0-11.0) Red Blood Count 5.11 x10^6/uL (4.30-5.70) Hemoglobin 15.3 g/dL (13.0-17.5) Hematocrit 45.8 % (39.0-53.0) Mean Corpuscular Volume 90 fL (79-100) Mean Corpuscular Hemoglobin 30 pg (25-35) Mean Corpuscular Hemoglobin Concent 33 g/dL (31-37) Red Cell Distribution Width 14.2 % (11.5-14.5) Platelet Count 237 x10^3/uL (140-400) Neutrophils (%) (Auto) 60 % (31-73) Lymphocytes (%) (Auto) 28 % (24-48) Monocytes (%) (Auto) 7 % (0-9) Eosinophils (%) (Auto) 5 % (0-3) Basophils (%) (Auto) 0 % (0-3) Neutrophils # (Auto) 4.8 x10^3/uL (1.8-7.7) Lymphocytes # (Auto) 2.3 x10^3/uL (1.0-4.8) Monocytes # (Auto) 0.6 x10^3/uL (0.0-1.1) Eosinophils # (Auto) 0.4 x10^3/uL (0.0-0.7) Basophils # (Auto) 0.0 x10^3/uL (0.0-0.2) Sodium Level 145 mmol/L (136-145) Potassium Level 4.2 mmol/L (3.5-5.1) Chloride Level 102 mmol/L (98-107) Carbon Dioxide Level 38 mmol/L (21-32) Anion Gap 5 (6-14) Blood Urea Nitrogen 15 mg/dL (8-26) Creatinine 1.0 mg/dL (0.7-1.3) Estimated GFR (Cockcroft-Gault) 87.7 BUN/Creatinine Ratio 15 (6-20) Glucose Level 131 mg/dL (70-99) Calcium Level 9.3 mg/dL (8.5-10.1) Magnesium Level 2.2 mg/dL (1.8-2.4) Total Bilirubin 0.2 mg/dL (0.2-1.0) Aspartate Amino Transf (AST/SGOT) 26 U/L (15-37) Alanine Aminotransferase (ALT/SGPT) 38 U/L (16-63) Alkaline Phosphatase 63 U/L (46-116) Troponin I High Sensitivity 16 ng/L (4-75) MN-Bgg-P-Type Natriuretic Peptide 72 pg/mL (0-449) Total Protein 7.6 g/dL (6.4-8.2) Albumin 3.6 g/dL (3.4-5.0) Albumin/Globulin Ratio 0.9 (1.0-1.7) SARS-CoV-2 RNA (ASAD) Negative (Negative) SARS-CoV-2 Antigen (Rapid) Negative (NEGATIVE) Influenza Type A Antigen Negative (NEGATIVE) Influenza Type B Antigen Negative (NEGATIVE) Urine Collection Type Unknown Urine Color Yellow Urine Clarity Clear Urine pH 5.0 (<5.0-8.0) Urine Specific [place] 1.025 (1.000-1.030) Urine Protein Negative mg/dL (NEG-TRACE) Urine Glucose (UA) Negative mg/dL (NEG) Urine Ketones (Stick) Negative mg/dL (NEG) Urine Blood Small (NEG) Urine Nitrite Negative (NEG) Urine Bilirubin Negative (NEG) Urine Urobilinogen Dipstick 0.2 mg/dL (0.2 mg/dL) Urine Leukocyte Esterase Negative (NEG) Urine RBC 6-10 /HPF (0-2) Urine WBC 1-4 /HPF (0-4) Urine Bacteria 0 /HPF (0-FEW) Urine Hyaline Casts Moderate /HPF Urine Mucus Mod /LPF Medications Active Scripts Medications Dose Route/Sig Max Daily Dose Days Date Category Prednisone 50 Mg Tablet 1 Tab PO DAILY 5 12/30/20 Rx Doxycycline Hyclate 100 Mg Tablet 1 Tab PO BID 12/30/20 Rx Proair Hfa Inhaler (Albuterol Sulfate) 8.5 Gm Hfa.aer.ad 2 Puff IH PRN Q4-6HRS PRN 12/30/20 Rx Calcium Carbonate 200 Mg Tab.chew 500 Mg PO PRN Q3HRS PRN 14 07/11/20 Rx Acetaminophen 325 Mg Tablet 650 Mg PO PRN Q6HRS PRN 30 07/11/20 Rx Amlodipine Besylate 5 Mg Tablet 5 Mg PO DAILY 30 07/11/20 Rx Aspirin 81 Mg Tab.chew 1 Tab PO DAILY 07/10/20 Reported Proventil Hfa (Albuterol Sulfate) 6.7 Gm Hfa.aer.ad 2 Puff INH PRN Q6HRS PRN 09/11/19 Reported Dyazide 37.5-25 Capsule (Triamterene/Hydrochlorothiazid) 1 Each Capsule 1 Cap PO DAILY 09/11/19 Reported Impression . Full consult dictated Acute exacerbation of COPD Acute on chronic hypoxemic hypercapnic respiratory failure ISHMAEL MONROY MD Dec 31, 2020 09:17
[2020-12-31] MEDS: ASPIRIN CHEWABLE 81 MG TABLET. PO SCH (10:15)
[2020-12-31] MEDS: LACTOBACILLUS RHAMNOSUS GG 1 CAPSULE. PO SCH ×2 (10:15→20:52)
[2020-12-31] MEDS: TRIAMTERENE/HCTZ 37.5/25MG TABLET. PO SCH (10:15)
[2020-12-31] MEDS ORDERED: FLUT9.9S NS (10:35)
[2020-12-31] MEDS ORDERED: GUAI600T93 PO (10:35)
[2020-12-31] MEDS ORDERED: ALPR0.254 PO (10:35)
[2020-12-31 11:00] VITALS: BP 150/75
--- NOTE | 2020-12-31 11:08 | NUR ---
SW following. Discussed with RN, pt from home alone, 4L (does not use oxygen at home), cardiac diet, COVID-19 negative. Pulmonology following. RN advised no SW needs at this time. SW will continue to follow.
--- NOTE | 2020-12-31 11:37 | PDOC ---
[employer] PROGRESS NOTE Date of Service DOS: DATE: 12/31/20 TIME: 11:36 Chief Complaint Chief Complaint Acute on chronic respiratory failure secondary to severe end-stage COPD Hyperlipidemia, hypertension, COPD, inguinal hernia repair, tobacco abuse, cocaine, marijuana, and methamphetamine abuse; psychiatric issues. History of Present Illness History of Present Illness 12/31/2020 Patient seen and examined He is still very agitated at times Very short of breath On 4 L of oxygen Discussed with RN Chart reviewed Patient would like to consider hospice In addition to evaluation and management I spent 31 minutes conversation with the family and patient at bedside in regards to current short-term treatment options as well as long-term treatment options. That includes discussion time with the patient's desire for care and treatment if he suffers a health event that adversely affects his decision-making abilities. Vitals/I&O Vitals/I&O: Vital Signs Date Time Temp Pulse Resp B/P (MAP) Pulse Ox O2 Delivery O2 Flow Rate FiO2 12/31/20 10:16 113 186/106 12/31/20 08:30 Nasal Cannula 4.0 12/31/20 08:00 97.2 20 91 97.2 I & O 12/30/20 12/30/20 12/31/20 15:00 23:00 07:00 Intake Total 120 ml Output Total 200 ml Balance -80 ml Physical Exam General: moderate distress Heart: Other (Tachycardic) Lungs: Wheezing, Crackles, Other Abdomen: No tenderness Extremities: No cyanosis Skin: No rashes Labs Labs: Laboratory Tests Test 12/30/20 11:40 12/30/20 12:14 12/30/20 12:15 12/30/20 14:30 White Blood Count 8.0 x10^3/uL (4.0-11.0) Red Blood Count 5.11 x10^6/uL (4.30-5.70) Hemoglobin 15.3 g/dL (13.0-17.5) Hematocrit 45.8 % (39.0-53.0) Mean Corpuscular Volume 90 fL (79-100) Mean Corpuscular Hemoglobin 30 pg (25-35) Mean Corpuscular Hemoglobin Concent 33 g/dL (31-37) Red Cell Distribution Width 14.2 % (11.5-14.5) Platelet Count 237 x10^3/uL (140-400) Neutrophils (%) (Auto) 60 % (31-73) Lymphocytes (%) (Auto) 28 % (24-48) Monocytes (%) (Auto) 7 % (0-9) Eosinophils (%) (Auto) 5 % (0-3) Basophils (%) (Auto) 0 % (0-3) Neutrophils # (Auto) 4.8 x10^3/uL (1.8-7.7) Lymphocytes # (Auto) 2.3 x10^3/uL (1.0-4.8) Monocytes # (Auto) 0.6 x10^3/uL (0.0-1.1) Eosinophils # (Auto) 0.4 x10^3/uL (0.0-0.7) Basophils # (Auto) 0.0 x10^3/uL (0.0-0.2) Sodium Level 145 mmol/L (136-145) Potassium Level 4.2 mmol/L (3.5-5.1) Chloride Level 102 mmol/L (98-107) Carbon Dioxide Level 38 mmol/L (21-32) Anion Gap 5 (6-14) Blood Urea Nitrogen 15 mg/dL (8-26) Creatinine 1.0 mg/dL (0.7-1.3) Estimated GFR (Cockcroft-Gault) 87.7 BUN/Creatinine Ratio 15 (6-20) Glucose Level 131 mg/dL (70-99) Calcium Level 9.3 mg/dL (8.5-10.1) Magnesium Level 2.2 mg/dL (1.8-2.4) Total Bilirubin 0.2 mg/dL (0.2-1.0) Aspartate Amino Transf (AST/SGOT) 26 U/L (15-37) Alanine Aminotransferase (ALT/SGPT) 38 U/L (16-63) Alkaline Phosphatase 63 U/L (46-116) Troponin I High Sensitivity 16 ng/L (4-75) QQ-Nrt-O-Type Natriuretic Peptide 72 pg/mL (0-449) Total Protein 7.6 g/dL (6.4-8.2) Albumin 3.6 g/dL (3.4-5.0) Albumin/Globulin Ratio 0.9 (1.0-1.7) SARS-CoV-2 RNA (ASAD) Negative (Negative) SARS-CoV-2 Antigen (Rapid) Negative (NEGATIVE) Influenza Type A Antigen Negative (NEGATIVE) Influenza Type B Antigen Negative (NEGATIVE) Urine Collection Type Unknown Urine Color Yellow Urine Clarity Clear Urine pH 5.0 (<5.0-8.0) Urine Specific [place] 1.025 (1.000-1.030) Urine Protein Negative mg/dL (NEG-TRACE) Urine Glucose (UA) Negative mg/dL (NEG) Urine Ketones (Stick) Negative mg/dL (NEG) Urine Blood Small (NEG) Urine Nitrite Negative (NEG) Urine Bilirubin Negative (NEG) Urine Urobilinogen Dipstick 0.2 mg/dL (0.2 mg/dL) Urine Leukocyte Esterase Negative (NEG) Urine RBC 6-10 /HPF (0-2) Urine WBC 1-4 /HPF (0-4) Urine Bacteria 0 /HPF (0-FEW) Urine Hyaline Casts Moderate /HPF Urine Mucus Mod /LPF Assessment and Plan Assessmemt and Plan Problems Medical Problems: (1) Chronic respiratory failure with hypoxia, on home oxygen therapy Status: Acute (2) COPD exacerbation Status: Acute Acute on chronic respiratory failure secondary to severe end-stage COPD Hyperlipidemia, hypertension, COPD, inguinal hernia repair, tobacco abuse, cocaine, marijuana, and methamphetamine abuse; psychiatric issues. Plan Patient would like to speak with hospice team For now continue the following; Steroids Breathing treatments Oxygen Home meds DVT prophylaxis Full code Appreciate pulmonary input Long-term prognosis very guarded at best Comment Review of Relevant I have reviewed the following items cele (where applicable) has been applied. Medications: Current Medications Medications (Trade) Dose Ordered Sig/Annalise Route PRN Reason Start Time Stop Time Status Last Admin Dose Admin Albuterol/ Ipratropium (Duoneb) 3 ml 1X ONCE NEB 12/30/20 12:00 12/30/20 12:02 DC 12/30/20 12:39 Methylprednisolone Sodium Succinate (SOLU-Medrol 125MG VIAL) 125 mg 1X ONCE IV 12/30/20 12:00 12/30/20 12:02 DC 12/30/20 12:10 Acetaminophen (Tylenol) 1,000 mg 1X ONCE PO 12/30/20 13:30 12/30/20 13:31 DC 12/30/20 13:30 Amlodipine Besylate (Norvasc) 5 mg 1X ONCE PO 12/30/20 13:30 12/30/20 13:31 DC 12/30/20 13:31 Albuterol Sulfate (Ventolin Neb Soln) 2.5 mg 1X ONCE NEB 12/30/20 14:00 12/30/20 14:02 DC 12/30/20 14:17 Doxycycline Hyclate (Vibra-Tab) 100 mg 1X ONCE PO 12/30/20 14:00 12/30/20 14:02 DC 12/30/20 14:35 Alprazolam (Xanax) 0.5 mg 1X ONCE PO 12/30/20 15:00 12/30/20 15:01 DC 12/30/20 15:00 Albuterol/ Ipratropium (Duoneb) 3 ml 1X ONCE NEB 12/30/20 15:45 12/30/20 15:46 DC 12/30/20 16:15 Sodium Chloride 1,000 ml @ 75 mls/hr 1X ONCE IV 12/30/20 16:30 12/31/20 05:49 DC 12/30/20 16:30 Methylprednisolone Sodium Succinate (SOLU-Medrol 125MG VIAL) 125 mg Q6HRS IV 12/30/20 18:00 12/31/20 11:31 DC 12/31/20 06:12 Albuterol Sulfate (Ventolin Neb Soln) 2.5 mg PRN Q4HRS PRN NEB SHORTNESS OF BREATH 12/30/20 16:45 12/31/20 10:57 DC 12/31/20 04:44 Amlodipine Besylate (Norvasc) 5 mg DAILY PO 12/31/20 09:00 12/31/20 10:16 Aspirin (Aspirin Chewable) 81 mg DAILY PO 12/31/20 09:00 12/31/20 10:15 Doxycycline Hyclate (Vibra-Tab) 100 mg BID PO 12/30/20 21:00 12/31/20 10:16 Triamterene/HCTZ (Maxzide 37.5/ 25mg) 1 tab DAILY PO 12/31/20 09:00 12/31/20 10:15 Lactobacillus Rhamnosus (Culturelle) 1 cap BID PO 12/31/20 09:00 12/31/20 10:15 Justifications for Admission Other Justification Acute COPD, acute respiratory failure with hypoxia PATYNIAL K III DO Dec 31, 2020 11:37
[2020-12-31] MEDS: ALBUTEROL SULFATE 2.5 MG/3 ML NEBU. NEB SCH ×3 (12:34→20:29)
[2020-12-31] MEDS: ALPRAZolam 0.25 MG TABLET PO PRN ×2 (12:35→20:57)
[2020-12-31 15:00] VITALS: BP 145/84
--- NOTE | 2020-12-31 16:25 | CONS ---
DATE OF CONSULTATION: 12/31/2020 ATTENDING PHYSICIAN: Roselia Wooten DO. REASON FOR CONSULTATION: The patient is seen in pulmonary consultation at the request of Dr. Wooten for increasing shortness of air. HISTORY OF PRESENT ILLNESS: The patient is a 75-year-old that normally wears oxygen at home. He quit tobacco approximately 6 months ago. He is normally on 2 liters of oxygen supplementation, presented with increasing shortness of breath, cough, mostly nonproductive, no hemoptysis. He states his metered-dose inhalers at home were not helpful. He has not been prescribed any recent steroids. He informed me that he quit smoking but in the medical record in the Emergency Department, he apparently continues to smoke. There is also history of cocaine, marijuana and methamphetamine use. PAST MEDICAL HISTORY: COPD, tobacco dependent, hyperlipidemia, hypertension. PAST SURGICAL HISTORY: Previous inguinal hernia repair. SOCIAL HISTORY: He continues to smoke. Occasional use of alcohol. REVIEW OF SYSTEMS: As indicated above, otherwise a 10-point system was reviewed and negative. FAMILY HISTORY: Noncontributory. PHYSICAL EXAMINATION: VITAL SIGNS: Stable. O2 saturation currently on 4 liters, 91%. HEENT: Eyes: The sclerae were nonicteric. NECK: Jugular venous distention was not elevated. No lymphadenopathy. CHEST: Full expansion. LUNGS: Poor inspiratory effort. Prolonged expiratory wheeze. CARDIOVASCULAR: Regular rate and rhythm with S1, S2, no S3. ABDOMEN: Soft. EXTREMITIES: No clubbing, cyanosis or edema. LABORATORY DATA: Chest x-ray reviewed, there was hyperinflation, no acute cardiopulmonary process. Labs were reviewed. White count was normal, hemoglobin and hematocrit normal. Electrolytes were normal. Total carbon dioxide was elevated. Serology for influenza and SARS-CoV-2 was negative. IMPRESSION: 1. Acute on chronic hypoxemic suspect chronic hypercapnic respiratory failure. 2. Acute exacerbation of chronic obstructive pulmonary disease. 3. Abnormal x-ray revealing hyperinflation compatible with emphysema. 4. SARS-CoV-2 testing negative. PLAN: 1. We will continue current oxygen supplementation. 2. Steroids. 3. Baseline arterial blood gas. 4. The patient is instructed on the importance of discontinuing tobacco use. 5. Nebulized treatments. 6. DVT prophylaxis. PRATEEK/IVORY DR: Allie TID: [id number]
[2020-12-31 19:00] VITALS: BP 147/89
[2020-12-31 23:00] VITALS: BP 116/70
[2021-01-01] MEDS: ALBUTEROL SULFATE 2.5 MG/3 ML NEBU. NEB SCH ×7 (00:28→23:48)
[2021-01-01 00:35] LABS: BASE EXCESS ABG 9 mmol/L (-3-3); HCO3 ABG 37 mmol/L (21-28); PO2 ABG 76 mmHg (65-108); SAT O2 ABG 95 % (92-99)
[2021-01-01 03:00] VITALS: BP 174/88
[2021-01-01 06:35] LABS: PCO2 ABG 63 mmHg (35-46)
[2021-01-01 07:30] VITALS: BP 116/75
--- NOTE | 2021-01-01 08:22 | PDOC ---
[employer] PROGRESS NOTE Date of Service DOS: DATE: 01/01/21 TIME: 08:21 Chief Complaint Chief Complaint Acute on chronic respiratory failure secondary to severe end-stage COPD Hyperlipidemia, hypertension, COPD, inguinal hernia repair, tobacco abuse, cocaine, marijuana, and methamphetamine abuse; psychiatric issues. History of Present Illness History of Present Illness 01/01/2021 Patient seen and examined Discussed with RN Chart reviewed He is up on the edge of the bed a little less short of breath 12/31/2020 Patient seen and examined He is still very agitated at times Very short of breath On 4 L of oxygen Discussed with RN Chart reviewed Patient would like to consider hospice In addition to evaluation and management I spent 31 minutes conversation with the family and patient at bedside in regards to current short-term treatment options as well as long-term treatment options. That includes discussion time with the patient's desire for care and treatment if he suffers a health event that adversely affects his decision-making abilities. Vitals/I&O Vitals/I&O: Vital Signs Date Time Temp Pulse Resp B/P (MAP) Pulse Ox O2 Delivery O2 Flow Rate FiO2 01/01/21 07:30 97.8 98 20 116/75 (89) 98 Nasal Cannula 4.0 97.8 I & O 12/31/20 12/31/20 01/01/21 15:00 23:00 07:00 Intake Total 220 ml 500 ml 500 ml Output Total 200 ml 570 ml 500 ml Balance 20 ml -70 ml 0 ml Physical Exam General: moderate distress Heart: Other (Tachycardic) Lungs: Wheezing, Crackles, Other Abdomen: No tenderness Extremities: No cyanosis Skin: No rashes Labs Labs: Laboratory Tests Test 12/31/20 14:46 O2 Saturation 95 % (92-99) Arterial Blood pH 7.39 (7.35-7.45) Arterial Blood pCO2 at Patient Temp 63 mmHg (35-46) Arterial Blood pO2 at Patient Temp 76 mmHg (65-108) Arterial Blood HCO3 37 mmol/L (21-28) Arterial Blood Base Excess 9 mmol/L (-3-3) Assessment and Plan Assessmemt and Plan Problems Medical Problems: (1) Chronic respiratory failure with hypoxia, on home oxygen therapy Status: Acute (2) COPD exacerbation Status: Acute Acute on chronic respiratory failure secondary to severe end-stage COPD Hyperlipidemia, hypertension, COPD, inguinal hernia repair, tobacco abuse, cocaine, marijuana, and methamphetamine abuse; psychiatric issues. Plan [facility] for evaluation today, for now continue the following; Steroids Breathing treatments Oxygen Home meds DVT prophylaxis Full code Appreciate pulmonary input Long-term prognosis very guarded at best Comment Review of Relevant I have reviewed the following items cele (where applicable) has been applied. Medications: Current Medications Medications (Trade) Dose Ordered Sig/Annalise Route PRN Reason Start Time Stop Time Status Last Admin Dose Admin Amlodipine Besylate (Norvasc) 5 mg DAILY PO 12/31/20 09:00 12/31/20 10:16 Aspirin (Aspirin Chewable) 81 mg DAILY PO 12/31/20 09:00 12/31/20 10:15 Triamterene/HCTZ (Maxzide 37.5/ 25mg) 1 tab DAILY PO 12/31/20 09:00 12/31/20 10:15 Lactobacillus Rhamnosus (Culturelle) 1 cap BID PO 12/31/20 09:00 12/31/20 20:52 Alprazolam (Xanax) 0.25 mg PRN BID PRN PO ANXIETY / AGITATION 12/31/20 12:00 12/31/20 20:57 Albuterol Sulfate (Ventolin Neb Soln) 2.5 mg Q4HRS NEB 12/31/20 12:00 01/01/21 07:15 Methylprednisolone Sodium Succinate (SOLU-Medrol 125MG VIAL) 125 mg BID IV 12/31/20 21:00 12/31/20 20:54 Justifications for Admission Other Justification Acute COPD, acute respiratory failure with hypoxia CHARLES NEWMAN III DO Jan 01, 2021 08:22
--- NOTE | 2021-01-01 09:12 | PDOC ---
PULMONARY PROGRESS NOTES DATE: 01/01/21 TIME: 09:12 Subjective Patient feels better, less short of air less wheezing but continues to experience dyspnea with exertion Vitals Vital Signs Date Time Temp Pulse Resp B/P (MAP) Pulse Ox O2 Delivery O2 Flow Rate FiO2 01/01/21 07:30 97.8 98 20 116/75 (89) 98 Nasal Cannula 4.0 97.8 ROS: No Nausea, No Chest Pain, No Abdominal Pain, No Increase Cough General: Alert, No acute distress Lungs: Wheezing Cardiovascular: S1, S2 Abdomen: Soft, Non-tender Neuro Exam: Alert Extremities: No Edema Skin: Warm Labs Laboratory Tests Test 12/30/20 11:40 12/30/20 12:14 12/30/20 12:15 12/30/20 14:30 White Blood Count 8.0 x10^3/uL (4.0-11.0) Red Blood Count 5.11 x10^6/uL (4.30-5.70) Hemoglobin 15.3 g/dL (13.0-17.5) Hematocrit 45.8 % (39.0-53.0) Mean Corpuscular Volume 90 fL (79-100) Mean Corpuscular Hemoglobin 30 pg (25-35) Mean Corpuscular Hemoglobin Concent 33 g/dL (31-37) Red Cell Distribution Width 14.2 % (11.5-14.5) Platelet Count 237 x10^3/uL (140-400) Neutrophils (%) (Auto) 60 % (31-73) Lymphocytes (%) (Auto) 28 % (24-48) Monocytes (%) (Auto) 7 % (0-9) Eosinophils (%) (Auto) 5 % (0-3) Basophils (%) (Auto) 0 % (0-3) Neutrophils # (Auto) 4.8 x10^3/uL (1.8-7.7) Lymphocytes # (Auto) 2.3 x10^3/uL (1.0-4.8) Monocytes # (Auto) 0.6 x10^3/uL (0.0-1.1) Eosinophils # (Auto) 0.4 x10^3/uL (0.0-0.7) Basophils # (Auto) 0.0 x10^3/uL (0.0-0.2) Sodium Level 145 mmol/L (136-145) Potassium Level 4.2 mmol/L (3.5-5.1) Chloride Level 102 mmol/L (98-107) Carbon Dioxide Level 38 mmol/L (21-32) Anion Gap 5 (6-14) Blood Urea Nitrogen 15 mg/dL (8-26) Creatinine 1.0 mg/dL (0.7-1.3) Estimated GFR (Cockcroft-Gault) 87.7 BUN/Creatinine Ratio 15 (6-20) Glucose Level 131 mg/dL (70-99) Calcium Level 9.3 mg/dL (8.5-10.1) Magnesium Level 2.2 mg/dL (1.8-2.4) Total Bilirubin 0.2 mg/dL (0.2-1.0) Aspartate Amino Transf (AST/SGOT) 26 U/L (15-37) Alanine Aminotransferase (ALT/SGPT) 38 U/L (16-63) Alkaline Phosphatase 63 U/L (46-116) Troponin I High Sensitivity 16 ng/L (4-75) SC-Haz-O-Type Natriuretic Peptide 72 pg/mL (0-449) Total Protein 7.6 g/dL (6.4-8.2) Albumin 3.6 g/dL (3.4-5.0) Albumin/Globulin Ratio 0.9 (1.0-1.7) SARS-CoV-2 RNA (ASAD) Negative (Negative) SARS-CoV-2 Antigen (Rapid) Negative (NEGATIVE) Influenza Type A Antigen Negative (NEGATIVE) Influenza Type B Antigen Negative (NEGATIVE) Urine Collection Type Unknown Urine Color Yellow Urine Clarity Clear Urine pH 5.0 (<5.0-8.0) Urine Specific [place] 1.025 (1.000-1.030) Urine Protein Negative mg/dL (NEG-TRACE) Urine Glucose (UA) Negative mg/dL (NEG) Urine Ketones (Stick) Negative mg/dL (NEG) Urine Blood Small (NEG) Urine Nitrite Negative (NEG) Urine Bilirubin Negative (NEG) Urine Urobilinogen Dipstick 0.2 mg/dL (0.2 mg/dL) Urine Leukocyte Esterase Negative (NEG) Urine RBC 6-10 /HPF (0-2) Urine WBC 1-4 /HPF (0-4) Urine Bacteria 0 /HPF (0-FEW) Urine Hyaline Casts Moderate /HPF Urine Mucus Mod /LPF Test 12/31/20 14:46 O2 Saturation 95 % (92-99) Arterial Blood pH 7.39 (7.35-7.45) Arterial Blood pCO2 at Patient Temp 63 mmHg (35-46) Arterial Blood pO2 at Patient Temp 76 mmHg (65-108) Arterial Blood HCO3 37 mmol/L (21-28) Arterial Blood Base Excess 9 mmol/L (-3-3) Laboratory Tests Test 12/31/20 14:46 O2 Saturation 95 % (92-99) Arterial Blood pH 7.39 (7.35-7.45) Arterial Blood pCO2 at Patient Temp 63 mmHg (35-46) Arterial Blood pO2 at Patient Temp 76 mmHg (65-108) Arterial Blood HCO3 37 mmol/L (21-28) Arterial Blood Base Excess 9 mmol/L (-3-3) Medications Active Scripts Medications Dose Route/Sig Max Daily Dose Days Date Category Prednisone 50 Mg Tablet 1 Tab PO DAILY 5 12/30/20 Rx Doxycycline Hyclate 100 Mg Tablet 1 Tab PO BID 12/30/20 Rx Proair Hfa Inhaler (Albuterol Sulfate) 8.5 Gm Hfa.aer.ad 2 Puff IH PRN Q4-6HRS PRN 12/30/20 Rx Calcium Carbonate 200 Mg Tab.chew 500 Mg PO PRN Q3HRS PRN 14 07/11/20 Rx Acetaminophen 325 Mg Tablet 650 Mg PO PRN Q6HRS PRN 30 07/11/20 Rx Amlodipine Besylate 5 Mg Tablet 5 Mg PO DAILY 30 07/11/20 Rx Aspirin 81 Mg Tab.chew 1 Tab PO DAILY 07/10/20 Reported Proventil Hfa (Albuterol Sulfate) 6.7 Gm Hfa.aer.ad 2 Puff INH PRN Q6HRS PRN 09/11/19 Reported Dyazide 37.5-25 Capsule (Triamterene/Hydrochlorothiazid) 1 Each Capsule 1 Cap PO DAILY 09/11/19 Reported Impression . IMPRESSION: 1. Acute on chronic hypoxemic suspect chronic hypercapnic respiratory failure. 2. Acute exacerbation of chronic obstructive pulmonary disease. 3. Abnormal x-ray revealing hyperinflation compatible with emphysema. 4. SARS-CoV-2 testing negative. Plan . Updated 01/01 CT reviewed, small nodule, repeat CT in 3 to 6 months No significant masses No consolidation Completed treatment for acute exacerbation of COPD 12/31 PLAN: 1. We will continue current oxygen supplementation. 2. Steroids. 3. Baseline arterial blood gas. 4. The patient is instructed on the importance of discontinuing tobacco use. 5. Nebulized treatments. 6. DVT prophylaxis. ISHMAEL MONROY MD Jan 01, 2021 09:12
[2021-01-01] MEDS: LACTOBACILLUS RHAMNOSUS GG 1 CAPSULE. PO SCH ×2 (09:51→21:05)
[2021-01-01] MEDS: TRIAMTERENE/HCTZ 37.5/25MG TABLET. PO SCH (09:51)
[2021-01-01] MEDS: ASPIRIN CHEWABLE 81 MG TABLET. PO SCH (09:51)
[2021-01-01] MEDS: ALPRAZolam 0.25 MG TABLET PO PRN (09:52)
[2021-01-01] MEDS: methylPREDNISolone SOD SUCC PF 125 MG/2 ML VIAL. IV SCH ×2 (09:52→21:06)
[2021-01-01] MEDS: DOXYCYCLINE HYCLATE 100 MG TABLET PO SCH ×2 (09:52→21:05)
[2021-01-01 10:50] VITALS: BP 129/82
[2021-01-01 14:50] VITALS: BP 109/64
[2021-01-01 19:00] VITALS: BP 101/50
[2021-01-01 23:00] VITALS: BP 138/81
[2021-01-02 02:38] VITALS: BP 142/75
[2021-01-02] MEDS: ALBUTEROL SULFATE 2.5 MG/3 ML NEBU. NEB SCH ×4 (04:00→15:32)
[2021-01-02 07:00] VITALS: BP 123/64
--- NOTE | 2021-01-02 09:17 | PDOC ---
PULMONARY PROGRESS NOTES DATE: 01/02/21 TIME: 09:17 Subjective Patient feels last short of air Vitals Vital Signs Date Time Temp Pulse Resp B/P (MAP) Pulse Ox O2 Delivery O2 Flow Rate FiO2 01/02/21 08:30 Nasal Cannula 3.0 01/02/21 07:28 97 01/02/21 07:00 97.5 87 18 123/64 (83) 97.5 ROS: No Nausea, No Chest Pain, No Abdominal Pain, No Increase Cough General: Alert, No acute distress Lungs: Wheezing Cardiovascular: S1, S2 Abdomen: Soft, Non-tender Neuro Exam: Alert Extremities: No Edema Skin: Warm Labs Laboratory Tests Test 12/31/20 14:46 O2 Saturation 95 % (92-99) Arterial Blood pH 7.39 (7.35-7.45) Arterial Blood pCO2 at Patient Temp 63 mmHg (35-46) Arterial Blood pO2 at Patient Temp 76 mmHg (65-108) Arterial Blood HCO3 37 mmol/L (21-28) Arterial Blood Base Excess 9 mmol/L (-3-3) Medications Active Scripts Medications Dose Route/Sig Max Daily Dose Days Date Category Prednisone 50 Mg Tablet 1 Tab PO DAILY 5 12/30/20 Rx Doxycycline Hyclate 100 Mg Tablet 1 Tab PO BID 12/30/20 Rx Proair Hfa Inhaler (Albuterol Sulfate) 8.5 Gm Hfa.aer.ad 2 Puff IH PRN Q4-6HRS PRN 12/30/20 Rx Calcium Carbonate 200 Mg Tab.chew 500 Mg PO PRN Q3HRS PRN 14 07/11/20 Rx Acetaminophen 325 Mg Tablet 650 Mg PO PRN Q6HRS PRN 30 07/11/20 Rx Amlodipine Besylate 5 Mg Tablet 5 Mg PO DAILY 30 07/11/20 Rx Aspirin 81 Mg Tab.chew 1 Tab PO DAILY 07/10/20 Reported Proventil Hfa (Albuterol Sulfate) 6.7 Gm Hfa.aer.ad 2 Puff INH PRN Q6HRS PRN 09/11/19 Reported Dyazide 37.5-25 Capsule (Triamterene/Hydrochlorothiazid) 1 Each Capsule 1 Cap PO DAILY 09/11/19 Reported Impression . IMPRESSION: 1. Acute on chronic hypoxemic suspect chronic hypercapnic respiratory failure. 2. Acute exacerbation of chronic obstructive pulmonary disease. 3. Abnormal x-ray revealing hyperinflation compatible with emphysema. 4. SARS-CoV-2 testing negative. Plan . Updated 01/[address] chest in 3 to 6 months Follow-up with me in the office Updated 01/01 CT reviewed, small nodule, repeat CT in 3 to 6 months No significant masses No consolidation Completed treatment for acute exacerbation of COPD 12/31 PLAN: 1. We will continue current oxygen supplementation. 2. Steroids. 3. Baseline arterial blood gas. 4. The patient is instructed on the importance of discontinuing tobacco use. 5. Nebulized treatments. 6. DVT prophylaxis. ISHMAEL MONROY MD Jan 02, 2021 09:17
[2021-01-02] MEDS: TRIAMTERENE/HCTZ 37.5/25MG TABLET. PO SCH (09:46)
[2021-01-02] MEDS: ASPIRIN CHEWABLE 81 MG TABLET. PO SCH (09:46)
[2021-01-02] MEDS: LACTOBACILLUS RHAMNOSUS GG 1 CAPSULE. PO SCH (09:46)
[2021-01-02] MEDS: DOXYCYCLINE HYCLATE 100 MG TABLET PO SCH (09:46)
[2021-01-02] MEDS: methylPREDNISolone SOD SUCC PF 125 MG/2 ML VIAL. IV SCH (09:47)
[2021-01-02] MEDS: ALPRAZolam 0.25 MG TABLET PO PRN (09:52)
[2021-01-02 11:00] VITALS: BP 154/91
[2021-01-02] MEDS ORDERED: DOXY100T PO (11:09)
[2021-01-02] MEDS ORDERED: METH4TAB2 PO (11:09)
--- NOTE | 2021-01-02 11:09 | SNU/HH DC ---
DISCHARGE ORDERS DISCHARGE INFORMATION: FINAL DIAGNOSIS Problems Medical Problems: (1) Chronic respiratory failure with hypoxia, on home oxygen therapy Status: Acute (2) COPD exacerbation Status: Acute CONDITION ON DISCHARGE: Stable CODE STATUS: Code Status: Full USP: SNF STAY <30 DAYS: No HOSPICE: HOSPICE: Yes HOSPICE EVAL & TREAT: Yes LTAC: ADMIT TO LTAC: No POST DISCHARGE ORDERS: ACTIVITY ORDERS: Activity as tolerated WEIGHT BEARING STATUS: As tolerated WOUND/INCISION CARE: No wound care needed CHECKS AFTER DISCHARGE: CHECKS AFTER DISCHARGE: Check blood press - daily, Check your Temp as needed TREATMENT/EQUIPMENT ORDERS: ADAPTIVE EQUIPMENT NEEDED: None DISCHARGE MEDICATIONS: Home Meds Active Scripts Albuterol Sulfate (PROAIR HFA INHALER) 8.5 Gm Hfa.aer.ad, 2 PUFF IH PRN Q4-6HRS PRN for wheezing, #1 INHALER 2 Refills Prov:RASHID BALTAZAR DO 12/30/20 Acetaminophen (ACETAMINOPHEN) 325 Mg Tablet, 650 MG PO PRN Q6HRS PRN for Headaches, Temp > 101.5F for 30 Days, #60 TAB Prov:LU KEARNS MD 07/11/20 Amlodipine Besylate (AMLODIPINE BESYLATE) 5 Mg Tablet, 5 MG PO DAILY for BLOOD PRESSURE for 30 Days, #30 TAB Prov:LU KEARNS MD 07/11/20 Reported Medications Alprazolam (ALPRAZOLAM) 0.25 Mg Tablet, 1 TAB PO PRN BID PRN for ANXIETY / AGITATION, #60 TAB 12/31/20 Guaifenesin (Mucus ER) 600 Mg Tab.er.12h, 600 MG PO DAILY PRN for CONGESTION, TAB.SR 12/31/20 Fluticasone Propionate (Flonase Allergy Relief) 9.9 Ml [place].susp, 2 SPRAYS NS DAILY for allergies, ML 12/31/20 Aspirin (ASPIRIN) 81 Mg Tab.chew, 1 TAB PO DAILY for heart health, #30 TAB 3 Refills 07/10/20 Albuterol Sulfate (Proventil Hfa) 6.7 Gm Hfa.aer.ad, 2 PUFF INH PRN Q6HRS PRN for SHORTNESS OF BREATH, INHALER 09/11/19 Triamterene/Hydrochlorothiazid (DYAZIDE 37.5-25 CAPSULE) 1 Each Capsule, 1 CAP PO DAILY for BP CONTROL, CAP 09/11/19 Discontinued Scripts Prednisone (PREDNISONE) 50 Mg Tablet, 1 TAB PO DAILY for 5 Days, #5 TAB Prov:RASHID BALTAZAR DO 12/30/20 Doxycycline Hyclate (DOXYCYCLINE HYCLATE) 100 Mg Tablet, 1 TAB PO BID, #20 TAB Prov:RASHID BALTAZAR DO 12/30/20 CHARLES NEWMAN III DO Jan 02, 2021 11:09
--- NOTE | 2021-01-02 11:10 | SNU/HH DC ---
DISCHARGE WITH HOME HEALTH DISCHARGE INFORMATION: Final Diagnosis: Problems Medical Problems: (1) Chronic respiratory failure with hypoxia, on home oxygen therapy Status: Acute (2) COPD exacerbation Status: Acute Condition on Discharge: Stable CODE STATUS: Code Status: Full HOME HEALTH: Face to Face: I certify this patient is under my care and that I, or a nurse practitioner or physician's medical clerical assistant working with me, had a face to face encounter that meets the physician face to face encounter requirements with this patient on []. [facility] For: Assess Cardiopulm Status RN For Eval/Treatment: Yes Physical Therapy For: Evalulation/Treatment Occupational Therapy For: Evaluation/Treatment Home Health Aide For: Self-care INDUSTRIAL SALES ENGINEER For: Community Resources Pt Meets Homebound Status: Poor coordination w/ amb. POST DISCHARGE ORDERS: Activity Instructions for Disc: Activity as tolerated Weight Bearing Status after Di: As tolerated DIET AFTER DISCHARGE: Cardiac Wound/Incision Care: No wound care needed CHECKS AFTER DISCHARGE: Checks after discharge: Check blood press - daily, Check your Temp as needed TREATMENT/EQUIPMENT ORDERS: Adaptive Equipment Issued: None CERTIFICATION STATEMENT: Certification Statement: Certification Statement: Based on the above finding, I certify that this patient is confined to the home and needs intermittent mcfp care, physical therapy and/or speech therapy, or continues to need occupational therapy.~ This patient is under my care, and I have initiated the establishment of the plan of care.~ This patient will be followed by myself or a community physician who will periodically review the plan of care. Home Meds Active Scripts Methylprednisolone (MEDROL) 4 Mg Tab.ds.pk, 1 PKG PO UD for ., #1 PKG Prov:CASTLE,NIAL K III DO 01/02/21 Doxycycline Hyclate (DOXYCYCLINE HYCLATE) 100 Mg Tablet, 100 MG PO BID for . for 7 Days, #14 TAB Prov:CASTLE,NIAL K III DO 01/02/21 Albuterol Sulfate (PROAIR HFA INHALER) 8.5 Gm Hfa.aer.ad, 2 PUFF IH PRN Q4-6HRS PRN for wheezing, #1 INHALER 2 Refills Prov:RASHID BALTAZAR DO 12/30/20 Acetaminophen (ACETAMINOPHEN) 325 Mg Tablet, 650 MG PO PRN Q6HRS PRN for Headaches, Temp > 101.5F for 30 Days, #60 TAB Prov:LU KEARNS MD 07/11/20 Amlodipine Besylate (AMLODIPINE BESYLATE) 5 Mg Tablet, 5 MG PO DAILY for BLOOD PRESSURE for 30 Days, #30 TAB Prov:LU KEARNS MD 07/11/20 Reported Medications Alprazolam (ALPRAZOLAM) 0.25 Mg Tablet, 1 TAB PO PRN BID PRN for ANXIETY / AGITATION, #60 TAB 12/31/20 Guaifenesin (Mucus ER) 600 Mg Tab.er.12h, 600 MG PO DAILY PRN for CONGESTION, TAB.SR 12/31/20 Fluticasone Propionate (Flonase Allergy Relief) 9.9 Ml [place].susp, 2 SPRAYS NS DAILY for allergies, ML 12/31/20 Aspirin (ASPIRIN) 81 Mg Tab.chew, 1 TAB PO DAILY for heart health, #30 TAB 3 Refills 07/10/20 Albuterol Sulfate (Proventil Hfa) 6.7 Gm Hfa.aer.ad, 2 PUFF INH PRN Q6HRS PRN f or SHORTNESS OF BREATH, INHALER 09/11/19 Triamterene/Hydrochlorothiazid (DYAZIDE 37.5-25 CAPSULE) 1 Each Capsule, 1 CAP PO DAILY for BP CONTROL, CAP 09/11/19 Discontinued Scripts Prednisone (PREDNISONE) 50 Mg Tablet, 1 TAB PO DAILY for 5 Days, #5 TAB Prov:RASHID BALTAZAR DO 12/30/20 Doxycycline Hyclate (DOXYCYCLINE HYCLATE) 100 Mg Tablet, 1 TAB PO BID, #20 TAB Prov:RASHID BALTAZAR DO 12/30/20 CHARLES NEWMAN III DO Jan 02, 2021 11:10
--- NOTE | 2021-01-02 11:17 | PDOC ---
[employer] PROGRESS NOTE Date of Service DOS: DATE: 01/02/21 TIME: 11:15 Chief Complaint Chief Complaint Acute on chronic respiratory failure secondary to severe end-stage COPD Hyperlipidemia, hypertension, COPD, inguinal hernia repair, tobacco abuse, cocaine, marijuana, and methamphetamine abuse; psychiatric issues. History of Present Illness History of Present Illness 01/02/2021 Patient seen and examined He seems to be approaching his baseline breathing a little better Discussed with RN Chart reviewed Patient is a little anxious about hospice would rather go home with home health probably I spent 15 minutes educating him about the difference of the two. (Hospice versus home health) 01/01/2021 Patient seen and examined Discussed with RN Chart reviewed He is up on the edge of the bed a little less short of breath 12/31/2020 Patient seen and examined He is still very agitated at times Very short of breath On 4 L of oxygen Discussed with RN Chart reviewed Patient would like to consider hospice In addition to evaluation and management I spent 31 minutes conversation with the family and patient at bedside in regards to current short-term treatment options as well as long-term treatment options. That includes discussion time with the patient's desire for care and treatment if he suffers a health event that adversely affects his decision-making abilities. Vitals/I&O Vitals/I&O: Vital Signs Date Time Temp Pulse Resp B/P (MAP) Pulse Ox O2 Delivery O2 Flow Rate FiO2 01/02/21 09:46 87 123/64 01/02/21 08:30 Nasal Cannula 3.0 01/02/21 07:28 97 01/02/21 07:00 97.5 18 97.5 I & O 01/01/21 01/01/21 01/02/21 15:00 23:00 07:00 Intake Total 640 ml 630 ml Output Total 650 ml 1400 ml Balance 640 ml -20 ml -1400 ml Physical Exam General: moderate distress Heart: Other (Tachycardic) Lungs: Wheezing Abdomen: No tenderness Extremities: No cyanosis Skin: No rashes Assessment and Plan Assessmemt and Plan Problems Medical Problems: (1) Chronic respiratory failure with hypoxia, on home oxygen therapy Status: Acute (2) COPD exacerbation Status: Acute Acute on chronic respiratory failure secondary to severe end-stage COPD Hyperlipidemia, hypertension, COPD, inguinal hernia repair, tobacco abuse, cocaine, marijuana, and methamphetamine abuse; psychiatric issues. Plan We had hospice evaluating but he prefers home health I think? Hope to discharge this afternoon with home health For now continue the following; Steroids Breathing treatments Oxygen Home meds DVT prophylaxis Full code Appreciate pulmonary input Long-term prognosis very guarded at best I put orders in for discharge with Medrol Dosepak and home p.o. doxycycline Comment Review of Relevant I have reviewed the following items cele (where applicable) has been applied. Justifications for Admission Other Justification Acute COPD, acute respiratory failure with hypoxia CHARLES NEWMAN III DO Jan 02, 2021 11:17
--- NOTE | 2021-01-02 12:52 | DS ---
DATE OF DISCHARGE: 01/02/2021 ADMITTING DIAGNOSIS: Severe respiratory failure secondary to chronic obstructive pulmonary disease. DISCHARGE DIAGNOSES: Chronic obstructive pulmonary disease with resolving respiratory failure, hyperlipidemia, hypertension, inguinal hernia, tobacco abuse, cocaine abuse, marijuana abuse, methamphetamine abuse, psychiatric issues. CONSULTS: Pulmonary Medicine and [facility]. PROCEDURES: None. HOSPITAL COURSE: The patient is a pleasant middle-aged male who has end-stage COPD, basically presented with recurrent respiratory failure. I have had him in the hospital several times. He is pretty aggressive and agitated at times. We gave him IV steroids, breathing treatments, oxygen, antibiotics. He seems to have a poor long-term prognosis, perhaps less than 6 months. I discussed hospice with him. He did want to talk to them, but now he has changed his mind and wants to go home with home health. Today, I saw and examined him. He seems to be at his baseline. We are going to discharge on Medrol Dosepak and p.o. antibiotics. DISPOSITION: Home on home health. ACTIVITY: As tolerated. DIET: Low sodium. DISCHARGE MEDICATIONS: Please see the MRAD. I put him on doxycycline 100 b.i.d., Medrol Dosepak, p.r.n. Tylenol, albuterol puffers, Xanax 0.5 b.i.d. p.r.n., amlodipine 5 a day, aspirin 81 a day, fluticasone, Mucus ER 600 daily, and Dyazide 37.5/25 one a day. TOTAL TIME: [address]: Constanza TID: [id number]
[2021-01-02 15:00] VITALS: BP 145/83
--- NOTE | 2021-01-02 18:44 | NUR ---
Pt left unit at approx 1815 by wheelchair via private vehicle, accompanied by girlfriend. Pt's IV removed without complication, VSS. Discharge paperwork discussed with pt, additional questions addressed.
== END 2021-01-02 18:45 | disposition home health service (06) | DRG 189 ==
LOC: ER 11:28 → ED HOLD 15:30 → 5 NORTH 16:45 → OBSVTOIN 12-31 12:03
PROVIDERS: ADMIT Internal Medicine; ATTEND Internal Medicine
DX: J96.22 Acute and chronic respiratory failure with hypercapnia (principal); J43.9 Emphysema, unspecified; J96.21 Acute and chronic respiratory failure with hypoxia; E78.00 Pure hypercholesterolemia, unspecified; E78.5 Hyperlipidemia, unspecified; F12.10 Cannabis abuse, uncomplicated; F14.10 Cocaine abuse, uncomplicated; F15.10 Other stimulant abuse, uncomplicated; F17.200 Nicotine dependence, unspecified, uncomplicated; I10 Essential (primary) hypertension; K40.90 Unilateral inguinal hernia, without obstruction or gangrene, not specified as recurrent; Z20.822 Contact with and (suspected) exposure to COVID-19; Z83.3 Family history of diabetes mellitus; Z99.81 Dependence on supplemental oxygen; Z79.899 Other long term (current) drug therapy
CPT/HCPCS: 36415; 36600; 71045; 80053; 81001; 82805; 83735; 83880; 84484; 85025; 87426; 87804; 94640; 94760; 96374; G0378; G0379; J2930; J7030; U0003; U0005; 99285-25; J7613

== ENCOUNTER 2021-02-08 09:05 | Emergency (ER) | payer MEDICARE, MEDICAID ==
[~2021-02-08] VITALS: Ht 200.7 cm; Wt 110.0 kg
[~2021-02-08 09:05] MED LIST changes: +ALPR0.254 PO; +DOXY100T PO; +FLUT9.9S NS; +GUAI600T93 PO; +METH4TAB2 PO; +PRED50TA PO
[2021-02-08 09:35] VITALS: BP 136/78
[2021-02-08] MEDS ORDERED: AMOXICILLIN/K CLAV 875/125MG TABLET. PO ONE (09:45)
[2021-02-08] MEDS ORDERED: AMOX1TAB61 PO (09:46)
--- NOTE | 2021-02-08 09:46 | PHYS DOC ---
Past Medical History Past Medical History: COPD, High Cholesterol, Hypertension Additional Past Medical Histor: O2 DEPENDENT Past Surgical History: Other Additional Past Surgical Histo: HERNIA Smoking Status: Former Smoker Alcohol Use: None Drug Use: Cocaine, Marijuana, Methamphetamine General Adult EDM: Chief Complaint: DENTAL PROBLEM HPI: HPI: Patient is a 75-year-old male who presents emergency department complaining of a dental infection in his gum for the past week. Patient reports intermittent dental pain, reports he has needed to get his tooth pulled for "some time now ". Patient is unable to articulate exactly how long he has had this particular tooth problem. Patient denies dental pain at this time. Denies recent fever or chills. Denies difficulty swallowing. Denies numbness or tingling to his mouth or tongue. Denies chest pains or shortness of breath, chest or nasal congestion . Patient reports he does not have a dentist to see. Patient denies other physical complaints or physical concerns. Review of Systems: Review of Systems: 14 body systems of review of systems have been reviewed. See HPI for pertinent positives and negative responses, otherwise all other systems are negative, nonpertinent or noncontributory. Constitutional: Negative except as outlined in HPI above. Skin: Negative except as outlined in HPI above. Eyes: Negative except as outlined in HPI above. HENT: Negative except as outlined in HPI above. Respiratory: Negative except as outlined in HPI above. Cardiovascular: Negative except as outlined in HPI above. GI: Negative except as outlined in HPI above. : Negative except as outlined in HPI above. Musculoskeletal: Negative except as outlined in HPI above. Integument: Negative except as outlined in HPI above. Neurologic: Negative except as outlined in HPI above. Endocrine: Negative except as outlined in HPI above. Lymphatic: Negative except as outlined in HPI above. Psychiatric: Negative except as outlined in HPI above. Heart Score: C/O Chest Pain: No Risk Factors: Risk Factors: DM, Current or recent (<one month) smoker, HTN, HLP, family history of CAD, obesity. Risk Scores: Score 0 - 3: 2.5% MACE over next 6 weeks - Discharge Home Score 4 - 6: 20.3% MACE over next 6 weeks - Admit for Clinical Observation Score 7 - 10: 72.7% MACE over next 6 weeks - Early Invasive Strategies Allergies: Allergies: Allergies Coded Allergies Type Severity Reaction Last Updated Verified No Known Drug Allergies 7/14/20 No Physical Exam: PE: Constitutional: Well developed, well nourished, no acute distress, non-toxic appearance. 75-year-old male in no apparent distress. HENT: Normocephalic, atraumatic. Oropharynx moist, pink, no deep tissue infect ious process appreciated, no drooling, no trismus, no malocclusion, patient speaking in normal voice tones. Patient has marked dental caries with multiple missing teeth, multiple teeth and different stages of decay. Patient's area of concern tooth #26 gingivitis with gum inflammation without purulent drainage. Tooth is stable, does not move with manual palpation. No lymphadenopathy of the head or neck appreciated. Eyes: Conjunctiva normal, no discharge. Neck: Normal range of motion, no stridor. Cardiovascular: No cyanosis appreciated, distal cap refill less than 2 seconds. Lungs & Thorax: Patient is in no respiratory distress, no audible adventitious lung sounds appreciated. Abdomen: Nontender, no abnormalities noted. Skin: Warm, dry, no erythema, no rash. Back: No tenderness, no deformities. Extremities: No tenderness, no cyanosis, no clubbing, ROM intact, no edema. Neurologic: Alert and oriented X 3, normal motor function, normal sensory function, no focal deficits noted. Psychologic: Affect normal, judgement normal, mood normal. Current Patient Data: Vital Signs: Vital Signs Date Time Temp Pulse Resp B/P (MAP) Pulse Ox O2 Delivery O2 Flow Rate FiO2 02/08/21 09:35 97.7 92 16 136/78 (97) 97 Room Air 97.7 EKG: EKG: [] Radiology/Procedures: Radiology/Procedures: [] Course & Med Decision Making: Course & Med Decision Making Pertinent Labs and Imaging studies reviewed. (See chart for details) 75-year-old male with history of COPD presents to the emergency department with dental complaints. Physical examination concerning for gingivitis with infection of gum at tooth #26. There was no purulent drainage appreciated, patient has marked dental caries, discussed with patient strict follow-up with dentist soon, will provide area dental clinic list with discharge, will start on Augmentin twice daily x7 days. [id number] Tylenol or Motrin for ongoing pain. Return to ER precautions or concerns. Patient gave verbal understanding of and is amenable to ED planning for Discussed with the patient all findings and diagnostic testing as well as the need to follow-up with their primary care provider for further evaluation and treatment or return to the ED if any new or worsening symptoms. Strict return precautions were also discussed at length, the patient voiced understanding and agreement with the discharge planning. The patient was nontoxic in appearance, in no apparent distress, and hemodynamically stable at the time of disposition. Dragon Disclaimer: Dragon Disclaimer: This electronic medical record was generated, in whole or in part, using a voice recognition dictation system. Departure Departure Impression: Primary Impression: Dentalgia Additional Impressions: Gingival abscess Dental caries Gingivitis Disposition: HOME / SELF CARE / HOMELESS Condition: GOOD Referrals: AJIT CARTER MD (PCP) Patient Instructions: Dental Abscess, Dental Caries Additional Instructions: You were seen today in the emergency department for a infection to the gums of your teeth. You were started on a antibiotic called Augmentin. Please take 1 tablet twice a day for the next 7 days. During this time please obtain a dentist to follow-up with for ongoing management of your tooth infection. I have attached a list of area dental clinics to follow-up with. You may swish and spit warm salt water after daily dental brushing to help with discomfort and aid in healing. You may also use [id number] Tylenol and or Motrin for dental discomfort. Please return to the emergency department for worsening symptoms or other concerns. Thank you for visiting our Emergency Department. It was a pleasure taking care of you today in the emergency department and we appreciate you trusting us with your care. If any additional problems come up don't hesitate to return to visit us. Please follow up with your primary care provider so they can plan additional care if needed and know about the problem that you had. If symptoms worsen come back to the Emergency Department. Any concerning symptoms that start such as chest pain, shortness of air, weakness or numbness on one side of the body, running high fevers or any other concerning symptoms return to the ER. Scripts Amoxicillin/Potassium Clav (AUGMENTIN 875-125 TABLET) 1 Each Tablet 1 TAB PO BID for dental infection for 7 Days, #14 TAB 0 Refills Prov: AJIT REYES APRN 02/08/21 AJIT REYES APRN Feb 08, 2021 09:46
[2021-02-08] MEDS ORDERED: AMOXICILLIN/K CLAV 875/125MG TABLET. ONE (09:51)
== END 2021-02-08 09:57 | disposition home or self-care (01) ==
LOC: ER 09:05
DX: K05.319 Chronic periodontitis, localized, unspecified severity (principal); K02.9 Dental caries, unspecified; K05.10 Chronic gingivitis, plaque induced; J44.9 Chronic obstructive pulmonary disease, unspecified; E78.00 Pure hypercholesterolemia, unspecified; I10 Essential (primary) hypertension; Z99.81 Dependence on supplemental oxygen
CPT/HCPCS: 99283

== ENCOUNTER → 2021-04-04 | Outpatient (CLI) | payer MEDICARE, MEDICAID ==
[~2021-04-04] MED LIST changes: +AMOX1TAB61 PO
--- NOTE | 2021-04-04 10:24 | RAD ---
CT of the chest without contrast: Clinical History: Follow-up lung mass. Axial helical images of the chest were obtained without contrast. COMPARISON: November 02, 2020 FINDINGS: There is diffuse emphysematous changes in the lungs. In the right lower lobe the previously seen well-circumscribed pulmonary nodule is smaller now measur ing 7 mm x 5 mm and there is a new patchy nodular opacity posterior to this nodule that measures 2.7 x 1.1 cm. There is additional patchy groundglass opacities as well as linear opacities at the right l luz base. There is a few new groundglass opacities laterally in the right middle lobe. There is gynecomastia likely incidental. There are significant coronary artery calcifications. There is bilateral adrenal nodules. There is no mediastinal or hilar lymphadenopathy. Impression: The originally seen well-circumscribed pulmonary nodule smaller however there is new findings describ ed above. The overall picture suggests a inflammatory or infectious process. Recommend a three-month follow-up CT chest without contrast. End of impression PQRS Compliance Statement: One or more of the following individualized dose reduction techniques were utilized for this examinat ion: 1. Automated exposure control 2. Adjustment of the mA and/or kV according to patient size 3. Use of iterative reconstruction technique Electronically signed by: Floyd Perez III, MD (04/04/2021 10:21 AM) [facility]
== END ==
LOC: CT 09:29
PROVIDERS: ATTEND Family Medicine
DX: R91.8 Other nonspecific abnormal finding of lung field (principal); J43.9 Emphysema, unspecified; I25.10 Atherosclerotic heart disease of native coronary artery without angina pectoris; N62 Hypertrophy of breast
CPT/HCPCS: 71250

== ENCOUNTER 2021-05-17 11:20 | Emergency (ER) | payer MEDICARE, OTHER ==
[~2021-05-17] VITALS: Ht 198.1 cm; Wt 106.8 kg
[~2021-05-17 11:20] MED LIST changes: -GUAI-305 PO; +GUAI-583 PO
[2021-05-17 11:25] VITALS: BP 166/86
--- NOTE | 2021-05-17 12:36 | PHYS DOC ---
Past Medical History Past Medical History: COPD, High Cholesterol, Hypertension Additional Past Medical Histor: O2 DEPENDENT Past Surgical History: No Surgical History, Other Additional Past Surgical Histo: HERNIA Smoking Status: Former Smoker Alcohol Use: None Drug Use: Cocaine, Marijuana, Methamphetamine General Adult EDM: Chief Complaint: SKIN PROBLEM HPI: HPI: 75-year-old male past medical history of oxygen dependent COPD, hypertension hyperlipidemia, presents the ED with complaints of lesion on his right upper fo rehead that has been present for the past 5 months. Thought to be a rubio months ago and attempted popping it with no success. Resolution of the lesion which is hard and painless. No associated purulent drainage, rash or increased warmth. No history of head or neck cancer. Does not have frequent skin exams with dermatology. Review of Systems: Review of Systems: Constitutional: Denies fever or chills. [] Eyes: Denies change in visual acuity. [] HENT: Denies nasal congestion or sore throat. [] Respiratory: Denies cough or shortness of breath. [] Cardiovascular: Denies chest pain or edema. [] GI: Denies nausea or vomiting Musculoskeletal: Denies back pain or joint pain. [] Integument: Denies rash or desquamation Neurologic: Denies focal weakness or sensory changes. [] Psychiatric: Denies depression or anxiety. [] Heart Score: C/O Chest Pain: No Risk Factors: Risk Factors: DM, Current or recent (<one month) smoker, HTN, HLP, family history of CAD, obesity. Risk Scores: Score 0 - 3: 2.5% MACE over next 6 weeks - Discharge Home Score 4 - 6: 20.3% MACE over next 6 weeks - Admit for Clinical Observation Score 7 - 10: 72.7% MACE over next 6 weeks - Early Invasive Strategies Allergies: Allergies: Allergies Coded Allergies Type Severity Reaction Last Updated Verified No Known Drug Allergies 09/12/19 No Physical Exam: PE: Constitutional: Well developed, well nourished, no acute distress, non-toxic appearance. HENT: Normocephalic, atraumatic, right upper forehead just 1 cm above eyebrow line is a painless palpable pea-sized nodule with central todd area (comedome? nodule? early BCC?) Eyes: EOMI, conjunctiva normal, no discharge. Neck: Normal range of motion, supple, Cardiovascular: S1/2 present, regular rhythm Lungs & Thorax: Speaking in full sentences, bilateral equal chest rise, no tachypnea or increased work of breathing Skin: Warm, dry, Extremities: no cyanosis, no lower extremity edema Neurologic: Alert and oriented X 3, no focal deficits noted. [] Psychologic: Affect normal, judgement normal, mood normal. [] Current Patient Data: Vital Signs: Vital Signs Date Time Temp Pulse Resp B/P (MAP) Pulse Ox O2 Delivery O2 Flow Rate FiO2 05/17/21 11:25 97.7 90 20 166/86 (112) 96 Nasal Cannula 2.0 97.7 EKG: EKG: [] Radiology/Procedures: Radiology/Procedures: [] Course & Med Decision Making: Course & Med Decision Making Pertinent Labs and Imaging studies reviewed. (See chart for details) Concern for painful, palpable lesion/nodule over patient's right forehead. There is no associated cellulitis or purulent drainage. Differential includes black comedone, nodule, scar tissue versus early basal cell carcinoma. Will refer patient to dermatology. Prior to completing discharge paperwork, patient eloped from emergency department. He did not receive his discharge instructions or follow-up information-patient had decision-making capacity. Will discharge home with strict ED return precautions were given for rash, fever or excessive bleeding. Encouraged urgent outpatient follow-up with PMD for routine care and dermatology for definitive management of this lesion. Life-threatening processes were considered but are low suspicion at this time, given history, physical exam and ED workup. Pt was educated on all prescription medications and adverse effects. All patient's questions were answered and pt was stable at time of discharge. Life/limb-threatening differential includes but is not limited to, erythema multiforme, schaffer-akhil syndrome, toxic epidermal necrolysis, staphylococcal scalded skin syndrome, necrotizing fasciitis/myositis/cellulitis, purpura fulminans, heparin or warfarin induced skin necrosis, angioedema, anaphylaxis drug rash, disseminated intravascular coagulation, disseminated gonococcal disease, vasculitis, septicemia, petechial disorder or coagulopathy, viral exanthem, Kawasaki's disease or life-threatening burn requiring burn center management or escharotomy. I have spoken with the patient and/or caregivers. I explained the patient's condition, diagnoses and treatment plan based on the information available to me at this time. I have answered the patient and/or caregiver's questions and addressed any concerns. The patient and/or caregivers have a good understanding of patient's diagnosis, condition and treatment plan as can be expected at this point. Vital signs have been stable. Patient's condition is stable and appropriate for discharge from the emergency department. Patient will pursue further outpatient evaluation with primary care physician or other designated or consulting physician as outlined in the discharge instructi ons. The patient and/or caregivers are agreeable to this plan of care and follow-up instructions have been explained in detail. The patient and/or caregivers have received these instructions in written form and have expressed an understanding of the discharge instructions. The patient and/or caregivers are aware that any significant change of condition or worsening of symptoms s hould prompt immediate return to this or the closest emergency department or call to [phone]. Marta Disclaimer: Marta Disclaimer: This electronic medical record was generated, in whole or in part, using a voice recognition dictation system. Departure Departure Impression: Primary Impression: Facial lesion Disposition: 07 LEFT AWOL/ELOPED Condition: STABLE Referrals: AJIT CARTER MD (PCP) follow up for routine care Patient Instructions: Excision of Skin Lesions Additional Instructions: Dermatology: FOR DEFINITIVE MANAGEMENT of facial lesion/[place] [id number] [place] [address] EMERGENCY DEPARTMENT GENERAL DISCHARGE INSTRUCTIONS Thank you for coming to [facility] Emergency Department (ED) today and trusting us with you care. We trust that you had a positive experience in our Emergency Department. If you wish to speak to the department management, you may call the Director at [phone]. YOUR FOLLOW UP INSTRUCTIONS ARE FOLLOWS: 1. Do you have a private Doctor? If you do not have a private doctor, please ask for a resource list of physicians or clinics that may be able to assist you with f ollow up care. 2. The Emergency Physicain has interpreted your x-rays. The X-Ray specialist will also review them. If there is a change in the findings, you will be notified in 48 hours when at all possible. 3. A lab test or culture has been done, your results will be reviewed and you will be notified if you need a change in treatment. ADDITIONAL INSTRUCTIONS AND INFORMATION: 1. Your care today has been supervised by a physician who is specially trained in emergency care. Many problems require more than one evaluation for a complete diagnosis and treatment. We recommend that you schedule your follow up appointment as recommended to ensure complete treatment of you illness or injury. If you are unable to obtain follow up care and continue to have a problem, or if your condition worsens, we recommend that you return to the ED. 2. We are not able to safely determine your condition over the phone nor are we able to give sound medical advice over the phone. For these safety reasons, if you call for medical advice we will ask you to come to the ED for further evaluation. 3. If you have any questions regarding these discharge instructions please call the ED at [phone]. SAFETY INFORMATION: In the interest of safety, wellness, and injury prevention; we encourage you to wear your sealbelt, if you smoke; quite smoking, and we encourage family to use a protect blair helmet for bicycling and other sporting events that present an increased risk for head injury. IF YOUR SYMPTOMS WORSEN OR NEW SYMPTOMS DEVELOP, OR YOU HAVE CONCERNS ABOUT YOUR CONDITION; OR IF YOUR CONDITION WORSENS WHILE YOU ARE WAITING FOR YOUR FOLLOW UP APPOINTMENT; EITHER CONTACT YOUR PRIMARY CARE DOCTOR, THE PHYSICIAN WHOSE NAME AND NUMBER YOU WERE GIVEN, OR RETURN TO THE ED IMMEDIATELY. MOOKIE SALINAS DO May 17, 2021 12:36
== END 2021-05-17 12:17 | disposition left against medical advice (07) ==
LOC: ER 11:20 → EDSEX 11:20 → ER 12:17
DX: L98.8 Other specified disorders of the skin and subcutaneous tissue (principal); J44.9 Chronic obstructive pulmonary disease, unspecified; E78.00 Pure hypercholesterolemia, unspecified; I10 Essential (primary) hypertension; Z87.891 Personal history of nicotine dependence
CPT/HCPCS: 99281